=== PATIENT | female | born 1935 | race Caucasian/White ===

== ENCOUNTER 2017-06-30 15:24 | Emergency (ER) | payer OTHER ==
[~2017-06-30 15:24] MED LIST: ACYCLOVIR200 MG PO; ATIVAN1 MG PO; IBUPROFEN PO; KEFLEX500 MG PO; KENALOG-4040 MG/1 ML TOP; PANTOPRAZOLE SO40 MG PO; PROBIOTIC COMP1 EACH PO; SURFAK240 MG PO; TYLENOL WITH C1 EACH PO; VIT B12 PO; VIT D3 PO
[2017-07-01] MEDS ORDERED: QUESTRAN PACKET4 GM PO (15:56)
[2017-07-01] MEDS ORDERED: XANAX0.25 MG PEG (15:56)
[2017-07-01] MEDS ORDERED: ZOFRAN ODT4 MG SL (15:56)
[2017-07-01] MEDS ORDERED: ACIDOPHILUS1 EAC1 PO (15:57)
== END 2017-06-30 15:39 | disposition short-term general hospital (02) ==
LOC: ER 15:24
DX: R06.00 Dyspnea, unspecified (principal)

== ENCOUNTER 2017-06-30 21:04 | Observation (INO) | payer OTHER ==
[~2017-06-30] VITALS: Ht 160 cm; Wt 76.7 kg
[2017-06-30 22:00] VITALS: BP 124/59
[2017-06-30 22:54] VITALS: BP 124/59
[2017-07-01] MEDS ORDERED: LORAZEPAM 1 MG TAB PO SCH (00:15)
[2017-07-01] MEDS ORDERED: ACETAMINOPHEN/CODEINE 300MG - 30MG TAB PO SCH (00:15)
[2017-07-01] MEDS ORDERED: SODIUM CHLORIDE 0.45% 1,000 ML IV SCH (00:30)
[2017-07-01] MEDS ORDERED: ACETAMINOPHEN/CODEINE 300MG - 30MG TAB PO PRN (00:30)
[2017-07-01] MEDS ORDERED: ONDANSETRON HCL INJ 2 MG/ML VIAL IV PRN (00:30)
[2017-07-01 01:05] VITALS: BP 124/59
[2017-07-01 04:00] VITALS: BP 127/69
[2017-07-01 07:25] VITALS: BP 117/62
[2017-07-01] MEDS ORDERED: FAMOTIDINE 20 MG TAB PO SCH (07:30)
[2017-07-01 07:53] LABS: BASOPHILS % 0.6 % (0.0-1.0); EOSINOPHILS # (AUTO) 0.1 (0.0-0.4); EOSINOPHILS % 2.6 % (0.0-6.0); HEMOGLOBIN 12.7 g/dL (12.0-16.0); LYMPHOCYTES # (AUTO) 1.6 (1.0-3.2); LYMPHOCYTES % 29.2 % (18.0-39.1); MEAN CORPUSCULAR HEMOGLOBIN 31.1 pg (28-32); MEAN CORPUSCULAR HGB CONC 33.4 g/dL (31-35); MEAN CORPUSCULAR VOLUME 93.1 fL (81-99); MONOCYTES # (AUTO) 0.6 (0.2-0.8); MONOCYTES % 10.9 % (4.4-11.3); NEUTROPHILS % 56.5 % (38.7-80.0); PLATELET COUNT 242 x10e3/uL (140-360); RED BLOOD COUNT 4.08 x10e6/uL (3.6-5.1); RED CELL DISTRIBUTION WIDTH 12.1 % (11.7-14.4)
[2017-07-01 08:16] LABS: BLOOD UREA NITROGEN 12 mg/dL (7-26); BUN/CREATININE RATIO 16 (6-25); CALCIUM 8.8 mg/dL (8.4-10.2); CARBON DIOXIDE 26 mmol/L (22-29); CHLORIDE 108 mmol/L (98-107); CREATININE, SERUM 0.77 mg/dL (0.57-1.11); EST GLOMERULAR FILTRATION RATE > 60 ML/MIN (60-); GLUCOSE 98 mg/dL (74-118); MAGNESIUM 1.9 MG/DL (1.3-2.1); SODIUM 141 mmol/L (136-145)
[2017-07-01 08:39] LABS: THYROID STIMULATING HORMONE 3.024 uIU/mL (0.350-4.940)
[2017-07-01] MEDS ORDERED: VIT D3 PO SCH (09:00)
[2017-07-01] MEDS ORDERED: NON-FORMULARY MEDICATION ([Vit B12] 1 TAB) PO SCH (09:00)
[2017-07-01] MEDS ORDERED: DOCUSATE CALCIUM 240 MG PO SCH (09:00)
[2017-07-01] MEDS ORDERED: ACYCLOVIR 200 MG CAP PO SCH (09:00)
[2017-07-01] MEDS ORDERED: CEPHALEXIN 500 MG CAP PO SCH (09:00)
[2017-07-01] MEDS: TRIAMCINOLONE ACET 40 MG/ML VIAL TOP SCH ×2 (09:00→15:00)
[2017-07-01] MEDS ORDERED: DOCUSATE SODIUM 100 MG CAP PO SCH (09:00)
[2017-07-01 09:49] VITALS: BP 117/62
--- NOTE | 2017-07-01 11:18 | Diagnostic Imaging Report ---
Ventilation/perfusion lung scan Clinical Information: 81 F with acute onset SOB Comparison: None Discussion: Xenon-133 gas 18 mCi was administered via inhalation. Dynamic images of the lungs in the posterior projection were obtained through single breath, equilibrium, and washout phases. Distribution of tracer activity appears physiologic throughout the lungs.. There are no segmental ventilatory defects. Washout of tracer is mildly delayed with no evidence of air trapping. Perfusion images of the lungs were obtained in multiple projections following intravenous administration of approximately 6.6 mCi of Tc-99m MAA. Distribution of tracer appears physiologic throughout the lungs. The contours of the lungs are well demarcated. There are no segmental perfusion defects of any size. The cardiomediastinal silhouette is unremarkable. Impression: 1. Scan findings represent a VERY LOW probability for acute pulmonary embolic disease based on the PIOPED II criteria. Signed by: Dr. Belén Tavera M.D. on 07/01/2017 11:14 AM
[2017-07-01] MEDS ORDERED: CHOLESTYRAMINE 4 GM PACKET PO SCH (11:30)
[2017-07-01] MEDS ORDERED: ALPRAZOLAM 0.25 MG TAB PO PRN (11:30)
[2017-07-01] MEDS ORDERED: LACTOBACILLUS ACIDOPHILUS CAPSULE PO SCH (11:30)
[2017-07-01 11:58] VITALS: BP 119/59
--- NOTE | 2017-07-01 15:05 | History and Physical ---
PRIMARY CARE PROVIDER: Dr. Ike Juarez Patient in observation. CHIEF COMPLAINT: Shortness of breath with positive D-dimer. HISTORY: A 81-year-old female off and on with diarrhea and abdominal pain for the past month with multiple antibiotics first with oral vancomycin and Flagyl, and subsequent Cipro and Flagyl because she could not afford the vancomycin on the 2nd dose. Apparently, she was having diarrhea off and on. First with constipation. Calcium treatment for osteoporosis, and then subsequently with stool softeners, then diarrhea and then possible diverticulitis where she had a CT scan of the abdomen and pelvis with and without contrast at [facility] outpatient imaging tests. That test I did not have. The patient is having diarrhea. She is having some generalized discomfort. She went to an outpatient urgent care and found that she had a high D-dimer, but because she just had a CT scan of abdomen and pelvis with IV contrast, the patient is transferred to [facility] on observation for V/Q scan for which she just now received. The patient is otherwise stable. Stool sample sent for C. diff toxin. PAST MEDICAL HISTORY: Recurrent constipation and diarrhea, history diverticulosis with diverticulitis, hypertension, anxiety disorder. PAST SURGICAL HISTORY: Noncontributory. SOCIAL HISTORY: Patient does not smoke or use alcohol. No regular drugs. ALLERGIES: NO KNOWN ALLERGIES. HOME MEDICATIONS: List reviewed. REVIEW OF SYSTEMS: Abdominal discomfort. No shortness breath now. Diarrhea. PHYSICAL EXAMINATION VITAL SIGNS: Temperature is 98, blood pressure 117/62, pulse rate 68, respirations 18. GENERAL: The patient is not in acute distress. He is awake. HEENT: Normocephalic, atraumatic and anicteric. NECK: Supple grossly. PULMONARY: Clear. CARDIOVASCULAR: Regular rate and rhythm. ABDOMEN: Soft. Generalized discomfort. No rebound or guarding. EXTREMITIES: No cyanosis or edema. NEUROLOGIC: No focal deficit. LABORATORY: Otherwise unremarkable. WBC is 5.3, hemoglobin 12.7, hematocrit 38, and platelets 242,000. Sodium is 141, potassium 4, chloride 108, bicarb 26, BUN 12, creatinine 0.8, glucose 98. IMPRESSION 1. Abdominal discomfort with diarrhea: Most likely colitis. Will check for Clostridium difficile colitis. 2. Shortness of breath: Most likely anxiety panic disorder. Doubt pulmonary embolism, but the V/Q scan is done and pending result. PLAN: Check V/Q scan. Start the patient on oral Flagyl and Questran. Bacid. Will monitor the patient closely. The patient may or may not be going home pending on the V/Q scan result. Job#: [id number] JUAN JOSE
[2017-07-01] MEDS ORDERED: QUESTRAN PACKET4 GM PO (15:56)
[2017-07-01] MEDS ORDERED: XANAX0.25 MG PEG (15:56)
[2017-07-01] MEDS ORDERED: ZOFRAN ODT4 MG SL (15:56)
[2017-07-01] MEDS ORDERED: ACIDOPHILUS1 EAC1 PO (15:57)
[2017-07-01 16:29] VITALS: BP 132/65
== END 2017-07-01 16:19 | disposition home or self-care (01) ==
LOC: INTOOBSV 21:49 → MED/SURG 21:49
PROVIDERS: ADMIT Internal Medicine; ATTEND Internal Medicine
DX: R06.02 Shortness of breath (principal); R19.7 Diarrhea, unspecified
CPT/HCPCS: 36415; 78582; 80048; 83735; 84443; 85025; 87493; A9540; A9558; G0378 ×2; J3301

== ENCOUNTER 2018-10-14 19:42 | Observation (INO) | payer OTHER ==
[~2018-10-14] VITALS: Ht 162.6 cm; Wt 79.8 kg
[~2018-10-14 19:42] MED LIST changes: +ACIDOPHILUS1 EAC1 PO; +QUESTRAN PACKET4 GM PO; +XANAX0.25 MG PEG; +ZOFRAN ODT4 MG SL
--- OUTSIDE RECORDS SUMMARY | 2018-10-14 19:46 | XMS REPORT ---
Author Author [facility] Address Unknown Phone Unavailable Care Team Providers Care Suit Maker Name Role Phone BILLY MUELLER Unavailable Unavailable Problems This patient has no known problems. Allergies, Adverse Reactions, Alerts This patient has no known allergies or adverse reactions. Medications This patient has no known medications. Results Test Description Test Time Test Comments Text Results Atomic Results Result Comments VQ LUNG SCAN VENT PERFUSION [place] [id number] Patient Name: YANIRA COKER MR #: [id number] : 1935 Age/Sex: 81/F Req #: [id number] [facility] Physician: BILLY MUELLER MD Ordered by: BILLY MUELLER MD Report #: [id number] Location: MED/SURG Room/Bed: [facility] Procedure: [id number] NM/VQ LUNG SCAN VENT PERFUSION Exam Date: Exam Time: REPORT STATUS: Signed Ventilation/perfusion lung scan Clinical Information: 81 F with acute onset SOB Comparison: None Discussion: Xenon-133 gas 18 mCi was administered via inhalation. Dynamic images of the lungs in the posterior projection were obtained through single breath, equilibrium, and washout phases. Distribution of tracer activity appears physiologic throughout the lungs.. There are no segmental ventilatory defects. Washout of tracer is mildly delayed with no evidence of air trapping. Perfusion images of the lungs were obtained in multiple projections following intravenous administration of approximately 6.6 mCi of Tc-99m MAA. Distribution of tracer appears physiologic throughout the lungs. The contours of the lungs are well demarcated. There are no segmental perfusion defects of any size. The cardiomediastinal silhouette is unremarkable. Impression: 1. Scan findings represent a VERY LOW probability for acute pulmonary embolic disease based on the PIOPED II criteria. Signed by: Dr. Kristie Blair M.D. on 07/01/2017 11:14 AM Dictated By: KRISTIE BLAIR MD [id number] Transcribed By: MIRIAM on 07/01/17 111 COPY TO: BILLY MUELLER MD
[2018-10-14] MEDS ORDERED: ASPIRIN 81 MG CHEW TAB PO ONE (20:15)
[2018-10-14] MEDS ORDERED: NITROGLYCERIN 2% OINT 1 GM PKT TOP ONE (20:15)
--- NOTE | 2018-10-14 21:53 | Diagnostic Imaging Report ---
EXAMINATION: CXR 1 [facility] INDICATION: Left chest pain and arm swollen x 4 h ago. COMPARISON: None FINDINGS: TUBES and LINES: None. LUNGS: Lungs are well inflated. Lungs are clear. There is no evidence of pneumonia or pulmonary edema. PLEURA: No pleural effusion or pneumothorax. HEART AND MEDIASTINUM: The cardiomediastinal silhouette is unremarkable. BONES AND SOFT TISSUES: No acute osseous lesion. Severe degenerative changes of the right shoulder with multiple large shadowing bodies. Likely moderate degenerative changes in the left shoulder. Soft tissues are unremarkable. UPPER ABDOMEN: No free air under the diaphragm. There are cholecystectomy clips. IMPRESSION: 1. No acute thoracic abnormality. 2. Severe degenerative changes in the right shoulder with multiple large loose joint bodies. 3. Likely moderate degenerative changes in the left shoulder. Signed by: Dr. Matthew Palomino M.D. on 10/14/2018 9:50 PM
[2018-10-14] MEDS ORDERED: ONDANSETRON HCL INJ 2MG/ML 2ML 2 MG/ML VIAL IV PRN (22:45)
[2018-10-15] VITALS (7 sets, daily range): BP systolic 123–151; BP diastolic 58–72
--- NOTE | 2018-10-15 00:52 | NUR ---
Patient is a new admit that arrived via stretcher. patient is awake and talking. patient has been helped into the bed. bed is in the lowest position and call rodas is within reach.
--- NOTE | 2018-10-15 01:00 | NUR ---
patient states current IV location in right AC is bothersome and painful and requests IV location be changed. A new IV has been started in patients right wrist. patient tolerated procedure well. IV is patent and blood is flowing.
[2018-10-15 02:50] LABS: CREATINE KINASE MB 2.6 ng/mL (0-5.0)
[2018-10-15] MEDS: NITROGLYCERIN 2% OINT 1 GM PKT TOP SCH ×2 (06:06)
--- NOTE | 2018-10-15 06:58 | NUR ---
report given to day nurse. patient is resting comfortably in bed. bed is in lowest position and call light is within reach.
[2018-10-15] MEDS ORDERED: ALPRAZOLAM 0.25 MG TAB PEG PRN (09:00)
[2018-10-15] MEDS ORDERED: ONDANSETRON HCL 4 MG ORAL DISINTEGRATING TAB SL PRN (09:00)
[2018-10-15] MEDS ORDERED: ASPIRIN 81 MG ENTERIC COATED PO SCH (09:00)
[2018-10-15 09:31] LABS: BASOPHILS % 0.5 % (0.0-1.0); EOSINOPHILS # (AUTO) 0.1 (0.0-0.4); EOSINOPHILS % 2.3 % (0.0-6.0); HEMATOCRIT 38.4 % (34.2-44.1); HEMOGLOBIN 12.6 g/dL (12.0-16.0); LYMPHOCYTES # (AUTO) 2.2 (1.0-3.2); LYMPHOCYTES % 37.8 % (18.0-39.1); MEAN CORPUSCULAR HEMOGLOBIN 31.1 pg (28-32); MEAN CORPUSCULAR HGB CONC 32.8 g/dL (31-35); MEAN CORPUSCULAR VOLUME 94.8 fL (81-99); MONOCYTES # (AUTO) 0.6 (0.2-0.8); MONOCYTES % 11.1 % (4.4-11.3); NEUTROPHILS # (AUTO) 2.8 (2.1-6.9); PLATELET COUNT 202 x10e3/uL (140-360); RED BLOOD COUNT 4.05 x10e6/uL (3.6-5.1); RED CELL DISTRIBUTION WIDTH 12.4 % (11.7-14.4)
[2018-10-15 10:05] LABS: CREATINE KINASE MB 2.1 ng/mL (0-5.0)
[2018-10-15 10:07] LABS: ALANINE AMINOTRANSFERASE 18 IU/L (0-55); ALBUMIN 3.3 g/dL (3.5-5.0); ALKALINE PHOSPHATASE 61 IU/L (40-150); ANION GAP 10.4 mmol/L (8-16); BLOOD UREA NITROGEN 17 mg/dL (7-26); BUN/CREATININE RATIO 22 (6-25); CALCIUM 9.3 mg/dL (8.4-10.2); CARBON DIOXIDE 29 mmol/L (22-29); CHLORIDE 103 mmol/L (98-107); CHOL/HDL RATIO 3.7 (3.0-3.6); CHOLESTEROL 161 MD/DL (0-199); CREATININE, SERUM 0.78 mg/dL (0.57-1.11); EST GLOMERULAR FILTRATION RATE > 60 ML/MIN (60-); GLUCOSE 164 mg/dL (74-118); HDL CHOLESTEROL 43 MG/DL (40-60); LDL CHOLESTEROL 73 MG/DL (60-130); POTASSIUM 4.4 mmol/L (3.5-5.1); SODIUM 138 mmol/L (136-145); TRIGLYCERIDES 224 MG/DL (0-149)
--- NOTE | 2018-10-15 14:28 | Consultation ---
DATE OF CONSULTATION: 10/14/2018 REASON FOR CONSULTATION: Chest pain. CONSULTING PHYSICIAN: Dr. Meliton Fox. HISTORY OF PRESENT ILLNESS: This is a pleasant 83-year-old female, who presented with chest pain. According to the patient, yesterday, she started having a left-sided chest pain that felt like a tight pressure on a scale of 8/10. She stated pain started while she was at a [employer]ian[employer], it radiated to her left shoulder blade and left arm thus she came into the emergency room for evaluation. She also stated that she feels shortness of breath with deep breathing. She denied any palpitation, any diaphoresis, any headache, nausea, or vomiting. She was at a free-standing ER and later sent over here for further evaluation. Troponin x1 is negative. EKG showed normal sinus rhythm with no ST abnormalities. PAST MEDICAL HISTORY: GERD, squamous cell carcinoma, anxiety, and diverticulitis. PAST SURGICAL HISTORY: Hemorrhoidectomy, cholecystectomy, appendectomy, and hysterectomy. FAMILY HISTORY: Positive for CAD. SOCIAL HISTORY: No smoking. No drinking. She lives at home with her . MEDICATIONS: See med list. ALLERGIES: SHE IS NOT ALLERGIC TO ANY MEDICATION. REVIEW OF SYSTEMS: Negative except those mentioned above. PHYSICAL EXAMINATION: VITAL SIGNS: Temperature 97, heart rate 76, blood pressure 126/61, respirations 18, and oxygen saturation 95% on room air. GENERAL: She is awake, alert, and oriented x3. HEENT: Mucous membranes moist. NECK: Supple. LUNGS: Bilaterally clear to auscultation. CARDIOVASCULAR: S1 and S2 present. ABDOMEN: Soft. NEUROLOGIC: Intact. EXTREMITIES: No edema. LABS: White blood cells 6.7, hemoglobin 12.7, hematocrit 37.8, and platelets 217. IMPRESSION: 1. Chest pain. 2. Gastroesophageal reflux disease. 3. History of anxiety. PLAN: 1. We will go ahead and get serial cardiac enzymes. 2. Get an echocardiogram, CBC, BNP, TSH, and BNP. We will continue her home medications. Further cardiac workup pending clinical course. Thank you for this consultation. Dictated by Franci Maldonado NP MD TYRONE De La Fuente/SRI /[id number]
--- NOTE | 2018-10-15 18:15 | NUR ---
patient alert and oriented. discharge instructions given at this time, patient verbalized understanding. IV discontinued at this time, catheter in tact and bed in lowest position. Patient refused wheelchair assistance and will be escorted out to personal auto for daughter to drive home.
== END 2018-10-15 18:22 | disposition home or self-care (01) ==
LOC: FSED 19:42 → ERHOLD 22:49 → IMCU 10-15 00:49
PROVIDERS: ADMIT Internal Medicine; ATTEND Internal Medicine
DX: R07.9 Chest pain, unspecified (principal); K21.9 Gastro-esophageal reflux disease without esophagitis; F41.9 Anxiety disorder, unspecified; Z82.49 Family history of ischemic heart disease and other diseases of the circulatory system; Z85.9 Personal history of malignant neoplasm, unspecified
CPT/HCPCS: 36415; 71045; 80053 ×2; 80061; 81003; 82550; 82553; 83880 ×2; 84443; 84484 ×2; 85025 ×2; 85610; 93005; 93306; 99284; G0378 ×2

== ENCOUNTER 2019-10-31 21:59 | Observation (INO) | payer OTHER ==
[~2019-10-31] VITALS: Ht 162.6 cm; Wt 77.1 kg
[2019-10-31] MEDS ORDERED: SODIUM CHLORIDE 0.9% 1000ML 1,000 ML IV STA (22:01)
[2019-10-31] MEDS ORDERED: ONDANSETRON HCL INJ 2MG/ML 2ML 2 MG/ML VIAL IV STA (22:01)
[2019-10-31] MEDS ORDERED: ASPIRIN 81 MG CHEW TAB PO ONE (22:15)
[2019-10-31 23:03] LABS: BASOPHILS % 0.6 % (0.0-1.0); EOSINOPHILS # (AUTO) 0.1 (0.0-0.4); EOSINOPHILS % 1.6 % (0.0-6.0); HEMATOCRIT 42.1 % (34.2-44.1); LYMPHOCYTES # (AUTO) 2.3 (1.0-3.2); LYMPHOCYTES % 32.9 % (18.0-39.1); MEAN CORPUSCULAR HEMOGLOBIN 30.2 pg (28-32); MEAN CORPUSCULAR HGB CONC 33.3 g/dL (31-35); MEAN CORPUSCULAR VOLUME 90.7 fL (81-99); MONOCYTES # (AUTO) 0.9 (0.2-0.8); MONOCYTES % 12.4 % (4.4-11.3); NEUTROPHILS # (AUTO) 3.6 (2.1-6.9); NEUTROPHILS % 51.9 % (38.7-80.0); PLATELET COUNT 234 x10e3/uL (140-360); RED BLOOD COUNT 4.64 x10e6/uL (3.6-5.1); RED CELL DISTRIBUTION WIDTH 12.6 % (11.7-14.4)
[2019-10-31 23:23] LABS: CLARITY,URINE CLOUDY (CLEAR); COLOR,URINE YELLOW (YELLOW); LEUKOCYTE ESTERASE ,URINE 1+ (NEGATIVE)
[2019-10-31 23:24] LABS: ALANINE AMINOTRANSFERASE 19 IU/L (0-55); ALBUMIN 3.8 g/dL (3.5-5.0); ALKALINE PHOSPHATASE 58 IU/L (40-150); BILIRUBIN,URINE NEGATIVE (NEGATIVE); BLOOD UREA NITROGEN 14 mg/dL (7-26); BUN/CREATININE RATIO 15 (6-25); CALCIUM 9.8 mg/dL (8.4-10.2); CARBON DIOXIDE 27 mmol/L (22-29); CHLORIDE 102 mmol/L (98-107); CREATINE KINASE 91 IU/L (29-168); CREATININE, SERUM 0.93 mg/dL (0.57-1.11); EST GLOMERULAR FILTRATION RATE 58 ML/MIN (60-); GLUCOSE 96 mg/dL (74-118); KETONES,URINE NEGATIVE (NEGATIVE); LIPASE 17 U/L (8-78); NITRITE,URINE NEGATIVE (NEGATIVE); PROTEIN,URINE DIPSTICK NEGATIVE (NEGATIVE); SODIUM 139 mmol/L (136-145); URINE UROBILINOGEN 0.2 mg/dL (0.2 - 1)
[2019-10-31 23:34] LABS: BACTERIA,URINE FEW /HPF; EPITHELIAL CELLS,URINE FEW /LPF; RENAL EPITHELIAL CELLS,URINE MODERATE; TRANSITIONAL EPI CELLS,URINE MANY; WBC,URINE (MAN) >50 /HPF (0-5)
[2019-11-01] VITALS (9 sets, daily range): BP systolic 118–129; BP diastolic 52–65
--- NOTE | 2019-11-01 00:10 | NUR ---
PT REPORTS "NOT ABLE TO TAKE A DEEP BREATH" SINCE RETURNING FROM CT W/ CONTRAST. PT STATES SHE HAS CT'S BEFORE WITH CONTRAST WITH NO REACTION. DR. MUELLER NOTIFIED AND AWARE. DR. MUELLER AT BEDSIDE FOR EVALUATION.
--- NOTE | 2019-11-01 00:15 | Diagnostic Imaging Report ---
EXAM: CT Abdomen and Pelvis WITH contrast INDICATION: ^abd pain ^[id number] ^2347 COMPARISON: CT abdomen 04/09/2016 TECHNIQUE: Abdomen and pelvis were scanned utilizing a multidetector helical scanner from the lung base to the pubic symphysis after administration of IV contrast. Coronal and sagittal reformations were obtained. Routine protocol was performed. Scan was performed when during portal venous phase. IV CONTRAST: 100 mL of Isovue 370 ORAL CONTRAST: Water COMPLICATIONS: None RADIATION DOSE: Total DLP: 644 mGy*cm Estimated effective dose: (DLP x 0.015 x size factor) mSv CTDIvol has been reviewed. It is below the limits set by the Radiation Protocol Committee (RPC). Dose modulation, iterative reconstruction, and/or weight based adjustment of the mA/kV was utilized to reduce the radiation dose to as low as reasonably achievable. FINDINGS: LINES and TUBES: None. LOWER THORAX: Small hiatal hernia. HEPATOBILIARY: Subtle nonspecific nodularity of the posterior aspect of the right hepatic lobe. No focal hepatic lesions. No biliary ductal dilation. GALLBLADDER: Surgically absent. SPLEEN: No splenomegaly. PANCREAS: No focal masses or ductal dilatation. ADRENALS: No adrenal nodules KIDNEYS/URETERS: Kidneys enhance symmetrically. No hydronephrosis. No cystic or solid mass lesions. No stones. GI TRACT: No abnormal distention, wall thickening, or evidence of bowel obstruction. Small and large bowel diverticulosis. Tiny ileal lipoma (image 42). Appendix is normal. PELVIC ORGANS/BLADDER: Unremarkable. LYMPH NODES: Prominent nonspecific left inguinal lymph nodes that measure up to 1.2 cm in short axis, possibly reactive. VESSELS: Scattered atherosclerotic calcifications. PERITONEUM / RETROPERITONEUM: No free air or fluid. BONES: No acute osseous abnormality. SOFT TISSUES: Tiny umbilical hernia. IMPRESSION: 1. No acute abdominal or pelvic abnormality. 2. Extensive diverticulosis of the small and large bowel. No inflammation. Signed by: Kilo De Paz MD on 11/01/2019 12:12 AM
--- NOTE | 2019-11-01 00:16 | Diagnostic Imaging Report ---
EXAMINATION: CHEST 2 VIEWS INDICATION: ^angina ^[id number] ^[id number] COMPARISON: None FINDINGS: PA and lateral views TUBES and LINES: None. LUNGS: Lungs are well inflated. Lungs are clear. There is no evidence of pneumonia or pulmonary edema. PLEURA: No pleural effusion or pneumothorax. HEART AND MEDIASTINUM: The cardiomediastinal silhouette is unremarkable. BONES AND SOFT TISSUES: No acute osseous lesion. Right shoulder joint loose bodies again noted. UPPER ABDOMEN: No free air under the diaphragm. IMPRESSION: No acute thoracic radiographic abnormality. Signed by: Kilo De Paz MD on 11/01/2019 12:13 AM
--- NOTE | 2019-11-01 00:18 | NUR ---
REPEAT EKG OBTAINED AT THIS TIME. EKG GIVEN TO ER FOR EVALUATION.
[2019-11-01] MEDS ORDERED: ENOXAPARIN INJ 80 MG/0.8 ML SYR SC STA (00:32)
[2019-11-01] MEDS ORDERED: ASPIRIN 325 MG TAB PO ONE (00:45)
[2019-11-01] MEDS ORDERED: SODIUM CHLORIDE 0.9% 50ML 50 ML ONE (00:47)
[2019-11-01] MEDS ORDERED: IOPAMIDOL 370 MG/ML 200 ML INFUS..BTL INJ ONE (00:47)
[2019-11-01] MEDS: SODIUM CHLORIDE 0.9% 1000ML 1,000 ML IV SCH ×3 (01:50→16:45)
--- NOTE | 2019-11-01 03:00 | NUR ---
PATIENT WAS BROUGHT FROM ER IN A STRETCHER WITH C/O LLQ PAIN.ASSESSMENT DONE.NO RESP.DISTRESS.TELE #[address],IV TO LEFT FOR ARM PATENT.AAOX4.SELF AMBULATES.ORIENTED TO THE UNIT.BED LOCKED AND IN LOWEST POSITION.PHONE AND CALL LIGHT WITHIN REACH.INSTRUCTED TO CALL FOR ASSISTANCE NEEDED.
--- NOTE | 2019-11-01 04:38 | NUR ---
PT REFUSED MORPHINE 4MG IV.STABLE CONDITION.
[2019-11-01] MEDS ORDERED: FLAGYL250 MG PO (04:41)
[2019-11-01 05:38] LABS: CREATINE KINASE 83 IU/L (29-168)
--- NOTE | 2019-11-01 07:00 | NUR ---
RECEIVED BEDSIDE SHIFT REPORT FROM VERNON BRUNNER. PT DENIES NEEDS AT THIS TIME.
--- NOTE | 2019-11-01 07:10 | NUR ---
CONSULTS CALLED.BED SIDE SHIFT REPORT GIVEN TO ONCOMING RN.STABLE CONDITION.
[2019-11-01] MEDS: ONDANSETRON HCL INJ 2MG/ML 2ML 2 MG/ML VIAL IV PRN ×2 (09:36→14:49)
[2019-11-01] MEDS: MORPHINE SULFATE INJ 4 MG/ML INJ 1ML IV PRN ×2 (09:36→14:49)
[2019-11-01 14:15] LABS: CREATINE KINASE 80 IU/L (29-168)
[2019-11-01] MEDS ORDERED: ACETAMINOPHEN/CODEINE 300MG - 30MG TAB PO PRN (14:30)
[2019-11-01] MEDS ORDERED: ALPRAZOLAM 0.25 MG TAB PO PRN (14:30)
[2019-11-01] MEDS ORDERED: ACYCLOVIR 200 MG CAP PO PRN (14:30)
[2019-11-01] MEDS ORDERED: CHOLESTYRAMINE 4 GM PACKET PO PRN (14:30)
[2019-11-01] MEDS ORDERED: ACETAMINOPHEN 325 MG TAB PO PRN (14:45)
[2019-11-01] MEDS ORDERED: HYDRALAZINE HCL 20 MG/ML VIAL IV PRN (14:45)
[2019-11-01] MEDS ORDERED: METRONIDAZOLE 250 MG TAB PO SCH (17:00)
[2019-11-01] MEDS ORDERED: CIPROFLOXACIN 500 MG TAB PO SCH (17:00)
[2019-11-01] MEDS: CIPROFLOXACIN 400 MG/D5W 200ML 200 ML IV SCH (17:26)
--- NOTE | 2019-11-01 19:10 | NUR ---
RECEIVED THE PATIENT IN REPORT.LYEING IN THE BED.STABLE CONDITION.IV FLUID RUNNING.
[2019-11-01] MEDS: ONDANSETRON HCL 4 MG ORAL DISINTEGRATING TAB SL PRN (20:29)
--- NOTE | 2019-11-01 20:33 | NUR ---
Assessment done.no resp.distress.no pain voiced.nauseated.zofran 4mg sub lingual given.bed locked and in lowest position.phone and call light within reach.instructed to call for assistance as needed.
--- NOTE | 2019-11-01 21:16 | History and Physical ---
CHIEF COMPLAINT: Abdominal pain. PRIMARY CARE PHYSICIAN: Casey Thao DO. CONSULTANTS: Dr. Don Vogel with Gastroenterology and Dr. Collin Winston. HISTORY OF PRESENT ILLNESS: The patient is an 84-year-old female with about a 3-4 week duration of abdominal soreness with knife-like pains at the left abdomen, which radiates to her back. For 2 weeks, she has fasted on evening meals only. This past week, she went off the fast, but ate no food last night. Her first diverticulosis attack was about 1982 and she was told to eat more fiber at that time. She went to her PCP for this attack and was prescribed Cipro and Flagyl. She denies any sick contacts. States she and her have quarantined themselves basically to avoid contact with others. She denies any recent camping. PAST MEDICAL HISTORY: Recurrent constipation and diarrhea, diverticulosis with diverticulitis, anxiety disorder, gastroesophageal reflux disease, squamous cell carcinoma, hypertension is also listed in previous notes' history, however, the patient denies history of hypertension and states she does not take anything for her blood pressure at home. PAST SURGICAL HISTORY: 11/24/2016 transanal resection of anorectal tumor, hemorrhoidectomy, cholecystectomy, appendectomy, hysterectomy. FAMILY HISTORY: Father had coronary artery disease and from myocardial infarction. Mother had squamous cell carcinoma. SOCIAL HISTORY: The patient smoked from about age [age]. She smoked about 17 years of 1 pack per day and quit 17 pack-years. Alcohol, some distant use, none recent. Denies any illicit drugs. ALLERGIES: NO KNOWN ALLERGIES. HOME MEDICATIONS: Include Tylenol No. 3, acyclovir, Xanax, cholestyramine, Lactobacillus acidophilus, Flagyl 250 mg p.o. b.i.d., p.r.n. sublingual Zofran, Kenalog 40, vitamin B12, vitamin D3. REVIEW OF SYSTEMS: CONSTITUTIONAL: The patient denies any significant weight loss or weight gain. Denies chills or fever. EYES, EARS, NOSE, THROAT: No complaints. RESPIRATORY: Denies shortness of breath, cough, or phlegm. GENITOURINARY: Denies difficulty urinating. PSYCHIATRIC: Possible panic attack last night. INTEGUMENTARY: Denies lesions or rash. CARDIOVASCULAR: Denies chest pain or palpitations. GASTROINTESTINAL: Abdominal pain, currently 5/10 on a 0-10 pain scale. Nausea 3 days ago, vomited once 3 days ago and once 2 days ago, but no vomiting since. Her last bowel movement was yesterday on 10/30. MUSCULOSKELETAL: Denies muscle or joint pain. NEUROLOGIC: Denies headache or dizziness. ENDOCRINE: Denies having history of diabetes. HEMATOLOGIC: Denies any bleeding anywhere. PHYSICAL EXAMINATION: VITAL SIGNS: Temperature 97.7, T-max 99.1, heart rate 61, blood pressure 123/55, respirations 20, oxygen saturation 96%. Height 5 feet 4 inches, weight 170 pounds. BMI 29.17. GENERAL: The patient lying supine in bed. Mild discomfort. LUNGS: Clear to auscultation. Respiratory pattern even and nonlabored. HEENT: EOMI. NECK: Supple. CARDIOVASCULAR: S1, S2. No murmurs. Regular rate and rhythm. Normal saline infusing at 100 mL an hour through a peripheral IV. ABDOMEN: Bowel sounds positive. Soft. Mildly tender to gentle palpation. EXTREMITIES: No clubbing, cyanosis, edema, or signs or symptoms of DVT. NEUROLOGICAL: GCS 15. Nonfocal. LABORATORY DATA: Sodium 139, potassium 4, chloride 102, CO2 of 27, BUN 14, creatinine 0.93, estimated GFR 58, glucose 96, calcium 9.8, total bilirubin 0.4, AST 24, ALT 19, alkaline phosphatase 58, creatine kinase 91, CK-MB 2.9, and troponin I less than 0.001, this was at 2248 yesterday. This morning at 4:50 in the morning; creatine kinase 83, CK-MB 2.5, troponin I less than 0.001. At 1335 today; creatine kinase 80, CK-MB 2.2, troponin I less than 0.001. B-type natriuretic peptide less than 10, total protein 7.6, albumin 3.8. Urinalysis showed cloudy urine, leukocyte esterase 1+, RBC 6-10, WBC greater than 50. UR transition epithelial cells many, UR renal epithelial cells moderate, few urine bacteria. Urine culture was ordered. CT of the abdomen and pelvis on 10/30 showed no acute abdominal or pelvic abnormality. Extensive diverticulosis of the small and large bowel. No inflammation. No mention of diverticulitis. Chest x-ray on 10/30 shows no acute thoracic radiographic abnormality. She had an echocardiogram done today, which shows an ejection fraction of 65% to 70% with her impaired relaxation. A 12-lead ECG yesterday had shown normal sinus rhythm with a heart rate of 67. Telemetry today shows normal sinus rhythm with a heart rate of 68. ASSESSMENT AND PLAN: 1. Diverticulosis without diverticulitis. The patient was on Cipro and Flagyl at home. Case was discussed with Dr. Van and Dr. Vogel. I will go ahead and restart those oral antibiotics for now. She is afebrile, has no elevated white blood cell count, denies chills. Pain control with morphine, Protonix. 2. Possible urinary tract infection. Follow up on final urine culture and sensitivity results. Continue IV fluids. 3. Nausea and vomiting, resolved. 4. Anxiety disorder. She may resume home dose of Xanax. 5. Gastroesophageal reflux disease/prophylaxis, Protonix. Time spent 60 minutes. [id number]. Dictated by Pieter Urbina NP Kennedy Van MD H[facility]/MODL /[id number]
[2019-11-01] MEDS: METRONIDAZOLE 500MG/NS 100ML 100 ML IV SCH (22:08)
--- NOTE | 2019-11-01 23:56 | Consultation ---
DATE OF CONSULTATION: 11/01/2019 Cardiology Consultation CONSULTING PHYSICIAN: Collin Winston MD, Interventional Cardiology. REASON FOR CONSULTATION: Shortness of breath/PVCs. HISTORY OF PRESENT ILLNESS: An 84-year-old pleasant woman with history of hypertension, dyslipidemia, diverticulosis, presents with abdominal discomfort. She is also noted to have some episodes of dyspnea at rest for which serial cardiac biomarkers were performed and ruled out for AMI. Her BNP was less than 10. She was reportedly noted to have some PVCs on telemetry. She denies any chest discomfort, syncope or lightheadedness. REVIEW OF SYSTEMS: A 12-system review is negative except for as noted above. ALLERGIES: NO KNOWN DRUG ALLERGIES. PAST MEDICAL HISTORY: Hypertension, dyslipidemia, and history of diverticulosis. SOCIAL HISTORY: Denies smoking, alcohol, or drugs. FAMILY HISTORY: Noncontributory. PHYSICAL EXAMINATION: VITAL SIGNS: Temperature 98.1, heart rate 60, respiratory rate 18, blood pressure 129/65, O2 saturation 97% on room air. GENERAL: In no acute distress. Alert. NECK: No JVD. CHEST: Clear to auscultation. CARDIOVASCULAR: Regular rate and rhythm. Normal S1, S2. No S3 or S4. ABDOMEN: Soft with mild tenderness. EXTREMITIES: No edema. CARDIOVASCULAR MEDICATIONS: Reviewed. Hydralazine 10 mg q.4 hours p.r.n., metronidazole antibiotics. STUDIES: Reviewed. Sodium 139, potassium 4, creatinine 0.9. Troponin I negative x3. BNP less than 10. Lipase 17, albumin 3.8. Abdomen and pelvis CT, no acute abdominal pelvic abnormality, extensive diverticulosis of the small and large bowel. No inflammation reported. Chest x-ray, no acute thoracic radiographic abnormality. ASSESSMENT: 1. Premature ventricular contractions. 2. Dyspnea. 3. Hypertension. 4. Dyslipidemia. 5. Abdominal discomfort, undergoing evaluation. 6. Diverticulosis. RECOMMENDATIONS: 1. Obtain echocardiogram. 2. Start low-dose beta-radha. 3. GI evaluating the patient. No acute or no unstable cardiac conditions identified. Beta-radha added to current regimen. Further recommendations to follow. Collin Winston MD [facility]/MODL /[id number]
[2019-11-02] VITALS (8 sets, daily range): BP systolic 112–189; BP diastolic 56–76
[2019-11-02] MEDS: SODIUM CHLORIDE 0.9% 1000ML 1,000 ML IV SCH ×3 (02:06→17:41)
[2019-11-02] MEDS: CIPROFLOXACIN 400 MG/D5W 200ML 200 ML IV SCH ×2 (05:03→17:53)
[2019-11-02] MEDS: ONDANSETRON HCL 4 MG ORAL DISINTEGRATING TAB SL PRN (05:35)
[2019-11-02] MEDS: METRONIDAZOLE 500MG/NS 100ML 100 ML IV SCH ×3 (06:06→22:00)
[2019-11-02 06:08] LABS: BASOPHILS % 0.6 % (0.0-1.0); EOSINOPHILS # (AUTO) 0.2 (0.0-0.4); HEMATOCRIT 35.9 % (34.2-44.1); HEMOGLOBIN 11.7 g/dL (12.0-16.0); LYMPHOCYTES # (AUTO) 1.9 (1.0-3.2); MEAN CORPUSCULAR HEMOGLOBIN 30.2 pg (28-32); MEAN CORPUSCULAR HGB CONC 32.6 g/dL (31-35); MEAN CORPUSCULAR VOLUME 92.8 fL (81-99); MONOCYTES # (AUTO) 0.6 (0.2-0.8); MONOCYTES % 13.3 % (4.4-11.3); NEUTROPHILS % 42.7 % (38.7-80.0); PLATELET COUNT 194 x10e3/uL (140-360); RED BLOOD COUNT 3.87 x10e6/uL (3.6-5.1); RED CELL DISTRIBUTION WIDTH 12.7 % (11.7-14.4)
[2019-11-02 06:25] LABS: MAGNESIUM 1.9 MG/DL (1.3-2.1); PHOSPHORUS 3.4 MG/DL (2.3-4.7)
[2019-11-02 06:30] LABS: ALANINE AMINOTRANSFERASE 19 IU/L (0-55); ALBUMIN 2.9 g/dL (3.5-5.0); ALBUMIN/GLOBULIN RATIO 0.9 (0.8-2.0); ALKALINE PHOSPHATASE 52 IU/L (40-150); ANION GAP 8.1 mmol/L (8-16); BLOOD UREA NITROGEN 10 mg/dL (7-26); BUN/CREATININE RATIO 13 (6-25); CALCIUM 8.5 mg/dL (8.4-10.2); CARBON DIOXIDE 26 mmol/L (22-29); CHLORIDE 107 mmol/L (98-107); CREATININE, SERUM 0.78 mg/dL (0.57-1.11); EST GLOMERULAR FILTRATION RATE > 60 ML/MIN (60-); GLUCOSE 127 mg/dL (74-118); POTASSIUM 4.1 mmol/L (3.5-5.1); SODIUM 137 mmol/L (136-145)
[2019-11-02 06:46] LABS: THYROID STIMULATING HORMONE 3.838 uIU/mL (0.350-4.940)
--- NOTE | 2019-11-02 07:00 | NUR ---
BED SIDE SHIFT REPORT GIVEN TO ONCOMING RN.STABLE CONDITION.
[2019-11-02] MEDS: PANTOPRAZOLE SOD 40 MG TABEC PO SCH (09:16)
[2019-11-02] MEDS: LACTOBACILLUS ACIDOPHILUS CAPSULE PO SCH (09:16)
[2019-11-02] MEDS: CHOLECALCIFEROL 1,000 UNIT TAB PO SCH (09:17)
[2019-11-02] MEDS: METOPROLOL SUCCINATE 25 MG TAB XL PO SCH (09:17)
[2019-11-02] MEDS: CYANOCOBALAMIN 1,000 MCG TAB PO SCH (09:17)
[2019-11-02] MEDS: AMLODIPINE BESYLATE 5 MG TAB PO SCH (17:15)
--- NOTE | 2019-11-02 19:45 | NUR ---
RECEIVED THE PATIENT IN BED AOX3 RESPIRATIONS ARE EVEN AND UNLABORED LEFT FA 20 G NS AT 125 CC/HR TELE SHOWS SR DENIES PAIN CALL LIGHT WITH IN REACH .CONTINUE TO MONITOR
[2019-11-02] MEDS ORDERED: CALCIUM CARBONATE 500 MG CHEWABLE TABS PO STA (20:11)
[2019-11-03] VITALS (8 sets, daily range): BP systolic 123–157; BP diastolic 53–67
--- NOTE | 2019-11-03 00:12 | Progress Note ---
DATE: 11/02/2019 SUBJECTIVE: The patient lying supine in bed on her left side, still has some abdominal "soreness." No complaints of nausea or vomiting. She had some indigestion after a sandwich earlier, but a one time dose of Tums helped this. She had two bowel movements today. No chills or fever. No panic attacks out of bed with bathroom privileges. MEDICATIONS: Reviewed. OBJECTIVE: VITAL SIGNS: Temperature 96.4, afebrile, heart rate 56, blood pressure 116/64, respirations 18, and oxygen saturation 99%. Intake 3940 mL. GENERAL: Supine, minimal discomfort. LUNGS: Clear to auscultation. Respirations unlabored. HEENT: EOMI. NECK: Supple. CARDIOVASCULAR: Regular rate and rhythm. No murmur. Normal saline infusing at 100 mL an hour into a PIV. ABDOMEN: Bowel sounds positive. Soft, mildly tender to gentle palpation. EXTREMITIES: No clubbing, cyanosis, edema, or signs of DVT. NEUROLOGICAL: GCS 15. Nonfocal. LABORATORY DATA: WBC 4.74, hemoglobin 11.7, hematocrit 35.9, and platelets 194. Sodium 137, potassium 4.1, chloride 107, CO2 of 26, BUN 10, creatinine 0.78, and estimated GFR greater than 60. Glucose 127, calcium 8.5, phosphorus 3.4, magnesium 1.9, total bilirubin 0.3, AST 23, ALT 19, alkaline phosphatase 52, total protein 6.1, albumin 2.9. TSH 3.838. Preliminary urine culture results collected on 10/30, show no growth in the last 18 to 24 hours. Diagnostic studies; telemetry shows sinus bradycardia with a heart rate of 54. Echocardiogram done on 10/31 shows EF 65% to 70% with impaired relaxation and mild mitral regurgitation. ASSESSMENT AND PLAN: 1. Diverticulosis, left lower quadrant abdominal pain due to low-grade diverticulitis, not visible on CT scan - continue IV Cipro and Flagyl. Afebrile, WBC WNL, no chills. Pain control with morphine, Tums improved indigestion, Protonix. 2. Possible urinary tract infection. Follow up on final urine culture and sensitivity results. No growth in 18 to 24 hours. Continue IV fluids. 3. Anxiety disorder. Continue home dose of Xanax. 4. Sinus bradycardia. Monitor. 5. Nausea and vomiting, resolved. 6. Gastroesophageal reflux disease/prophylaxis - Protonix. Time spent 35 minutes. Billing code [id number]. Dictated by Pieter Urbina, [employer] INSPECTOR MD HAKEEM Lovell/MODL /[id number]
--- NOTE | 2019-11-03 00:36 | Progress Note ---
DATE: 11/02/2019 Cardiology Progress Note SUBJECTIVE: Denies chest pain or shortness of breath. No new complaints. Abdominal discomfort improved. OBJECTIVE: VITAL SIGNS: Temperature 97 degrees, heart rate 61, blood pressure is somewhat variable but high as 189/76, respiratory rate 20, and O2 saturation 97%. GENERAL: In no acute distress, alert. NECK: No JVD. CHEST: Clear to auscultation. CARDIOVASCULAR: Regular rate and rhythm. Normal S1 and S2. ABDOMEN: Soft. Bowel sounds positive. EXTREMITIES: No edema. CARDIOVASCULAR MEDICATIONS: Reviewed, metoprolol tartrate 25 mg daily. STUDIES: Reviewed. Cardiac biomarkers, troponin I negative x3. BNP less than 10. White blood cells 4.7, hemoglobin 11.7. Telemetry in sinus rhythm. Echocardiogram with preserved left ventricular systolic function, LVEF 60% to 65%, impaired LV relaxation, trace mitral and tricuspid regurgitation. ASSESSMENT: 84-year-old woman with hypertension, rare PVCs, on telemetry. Anxiety, urinary tract infection, presents with suspected diverticulitis/abdominal pain in the setting of history of diverticulosis. RECOMMENDATIONS: The patient seems to be improving with antibiotic therapy and conservative management. Continue to monitor response. Blood pressure remains somewhat labile, however, elevated. We will add low-dose amlodipine and continue beta-radha. Collin Winston MD AFBertha/SRI /[id number]
[2019-11-03] MEDS: SODIUM CHLORIDE 0.9% 1000ML 1,000 ML IV SCH (03:34)
[2019-11-03] MEDS: CIPROFLOXACIN 400 MG/D5W 200ML 200 ML IV SCH ×2 (05:00→16:29)
[2019-11-03] MEDS: METRONIDAZOLE 500MG/NS 100ML 100 ML IV SCH ×3 (05:23→22:00)
--- NOTE | 2019-11-03 05:54 | NUR ---
PT RESTED DURING THE NIGHT ,DENIES PAIN .NO ACUTE DISTRESS NOTED ,CALL LIGHT WITH IN REACH ,CONTINUE TO MONITOR
--- NOTE | 2019-11-03 07:07 | NUR ---
BEDSIDE REPORT GIVEN TO THE ON COMING NURSE
--- NOTE | 2019-11-03 07:07 | NUR ---
BEDSIDE REPORT GIVEN TO THE ON COMING NURSE
[2019-11-03] MEDS: PANTOPRAZOLE SOD 40 MG TABEC PO SCH (08:24)
[2019-11-03] MEDS: LACTOBACILLUS ACIDOPHILUS CAPSULE PO SCH (08:24)
[2019-11-03] MEDS: AMLODIPINE BESYLATE 5 MG TAB PO SCH (08:24)
[2019-11-03] MEDS: CHOLECALCIFEROL 1,000 UNIT TAB PO SCH (08:24)
[2019-11-03] MEDS: CYANOCOBALAMIN 1,000 MCG TAB PO SCH (08:24)
[2019-11-03] MEDS: METOPROLOL SUCCINATE 25 MG TAB XL PO SCH (08:25)
--- NOTE | 2019-11-03 15:58 | Progress Note ---
DATE: 11/03/2019 Cardiology Progress Note SUBJECTIVE: Denies any chest pain or shortness of breath. OBJECTIVE: VITAL SIGNS: Temperature 97.5, heart rate 63, blood pressure 156/67, respiratory rate 20, and O2 saturation 95%. GENERAL: In no acute distress. Alert. NECK: No JVD. CHEST: Clear to auscultation. CARDIOVASCULAR: Regular rate and rhythm. Normal S1 and S2. No S3. No S4. ABDOMEN: Soft. Bowel sounds positive. EXTREMITIES: No edema. CARDIOVASCULAR MEDICATIONS: Reviewed. Metoprolol succinate 25 mg daily and amlodipine 2.5 mg daily. STUDIES: Reviewed. Creatinine 0.7. White blood cells 4.7, hemoglobin 11.7, and platelets 194. ASSESSMENT AND PLAN: An 84-year-old woman with hypertension, anxiety, premature ventricular contractions, diverticulosis, now with resolved abdominal discomfort. RECOMMEND: 1. Continue current cardiovascular medications. 2. On telemetry sinus rhythm over the last several days. Okay to discharge from a cardiovascular standpoint with outpatient followup in 4 to 6 weeks. MD ANDRIA Aceves/SRI /[id number]
--- NOTE | 2019-11-03 18:27 | Progress Note ---
DATE: 11/03/2019 SUBJECTIVE: The patient is sitting on the edge of the bed. States she feels she is ready to be discharged home. She is feeling much better. She does have some abdominal tenderness when sitting or with pressure applied to the abdomen. MEDICATIONS: Reviewed. OBJECTIVE: VITAL SIGNS: Temperature 97.5, heart rate 63, blood pressure 156/67, respirations 20, and oxygen saturation 95%. GENERAL: No new complaints. LUNGS: Clear to auscultation. RESPIRATORY: Pattern even and labored. HEENT: Extraocular eye movements intact. NECK: Supple. No lymphadenopathy, thyromegaly, or JVD. CARDIOVASCULAR: Regular rate and rhythm. No murmur. Normal saline infusing at 100 mL an hour. Anterior peripheral IV. ABDOMEN: Bowel sounds positive. Soft, mildly tender to gentle palpation. EXTREMITIES: No clubbing, cyanosis, edema, or signs of DVT. NEUROLOGICAL: GCS 15. Nonfocal. LABORATORY DATA: No new labs today. Lab holiday today. No new imaging studies. ASSESSMENT AND PLAN: 1. Diverticulosis, left lower quadrant abdominal pain due to low-grade diverticulitis, not visible on CT scan-continue IV Cipro and Flagyl. Afebrile, WBC has been within normal limits, no chills. Pain control with morphine. Tums improved. Indigestion, Protonix. 2. Possible urinary tract infection. Final urine culture results from the urine culture collected on October 30 show no growth after 36 to 48 hours. 3. Anxiety disorder. Continue home dose of Xanax. 4. Sinus bradycardia. Monitor. 5. Nausea and vomiting, resolved. 6. Gastroesophageal reflux disease/prophylaxis-Protonix. Time spent 35 minutes. Billing code, [id number]. Dictated by Pieter Urbina NP Kennedy Van MD HWP/MODL /[id number]
--- NOTE | 2019-11-03 19:27 | NUR ---
RECEIVED THE PATIENT SITTING ON THE SIDE OF THE BBED AOX3 RESPIRATIONS ARE EVEN AND UNLABORED TELE SHOWS SR DENIES PAIN CALL LIGHT WITH IN REACH .CONTINUE TO MONITOR
[2019-11-04] VITALS: BP 123/55
[2019-11-04 04:00] VITALS: BP 126/70
[2019-11-04] MEDS: CIPROFLOXACIN 400 MG/D5W 200ML 200 ML IV SCH (05:07)
[2019-11-04] MEDS: METRONIDAZOLE 500MG/NS 100ML 100 ML IV SCH (05:27)
--- NOTE | 2019-11-04 05:28 | NUR ---
PT RESTED DURING THE NIGHT ,DENIES PAIN .NO ACUTE DISTRESS NOTED ,CALL LIGHT WITH IN REACH ,CONTINUE TO MONITOR
--- NOTE | 2019-11-04 07:00 | NUR ---
BEDSIDE SHIFT REPORT RECEIVED FROM THE VINYL TOP INSTALLER RN. EDUCATED PT ABOUT FALL PRECAUTIONS. PT VERBALIZED UNDERSTANDING. CALL LIGHT WITH IN EASY REACH. INSTRUCTED PT TO USE CALL LIGHT FOR ALL THE NEEDS. BED IS LOW AND LOCKED. SIDE RAILS X2. BED ALARM IS ON. PT DENIES NEEDS AT THIS TIME.
--- NOTE | 2019-11-04 07:08 | NUR ---
BEDSIDE REPORT GIVEN TO THE ONCOMING NURSE
[2019-11-04] MEDS ORDERED: CIPRO500 MG PO (07:14)
[2019-11-04] MEDS ORDERED: FLAGYL500 MG PO (07:14)
--- NOTE | 2019-11-04 07:59 | Discharge Summary ---
CONSULTING PHYSICIANS: Included Dr. Collin Rogel and Dr. Don Vogel. HISTORY: Ms. Clay is an 84-year-old female, who had about a 3-to 4-week duration of abdominal soreness with knife-like pains in the left abdomen, radiating to her back. For 2 weeks, she had fasted on the evening meals only and then the week prior to admission, she went off the fast, but had no food the night prior to admission. Her first diverticulosis attack was about in 1982. She was told to eat more fiber at that time. She went to her PCP for this attack and was prescribed oral Cipro and Flagyl. She did not improve and decided to come to the emergency department. She denies any sick contacts. She states she and her are in quarantine themselves basically to avoid contact with others and denied any recent camping. ADMITTING DIAGNOSES: Included: 1. Left lower quadrant abdominal pain due to diverticulosis without imaging evidence of diverticulitis. 2. Possible urinary tract infection. 3. Nausea and vomiting, resolved. 4. Anxiety disorder. 5. Gastroesophageal reflux disease. DISCHARGE DIAGNOSES: 1. Diverticulosis, left lower quadrant abdominal pain due to low-grade diverticulitis, not visible on CT scan. 2. Anxiety disorder. 3. Sinus bradycardia. 4. Nausea and vomiting, resolved. 5. Gastroesophageal reflux disease. HOSPITAL COURSE: The patient was put on IV Cipro and Flagyl with improvement. She was afebrile with WBCs within normal limits throughout her stay. No chills. Pain controlled with morphine. Tums improved her indigestion and she remained on Protonix. There was concern for possible urinary tract infection and a followup urine culture and sensitivity showed no growth. Her home dose of Xanax was continued for anxiety. Per Cardiology, okay to discharge home from their standpoint with outpatient followup in 4 to 6 weeks. Blood pressure was somewhat labile, however, elevated and a low dose of amlodipine and beta-radha were used. She will continue these at home. She did have some premature ventricular contractions. An echocardiogram was done on 10/31 with estimated ejection fraction of 65% to 70% with mild mitral regurgitation and impaired relaxation. Per Dr. Vogel's note, the patient has a history of anal cancer in situ, status post resection. The patient refused chemotherapy and radiation in the past and is to follow up with Dr. Padilla with Surgery. She is to follow up with Gastroenterology on an outpatient basis as directed. Continue cardiac diet. Activity level as tolerated. We will send her home on prescriptions of Cipro and Flagyl each 500 mg b.i.d. for 10 days. Dictated by Pieter Urbina, FLAVIO MD NATALIE LovellP/MODL /[id number]
[2019-11-04 08:00] VITALS: BP 156/69
--- NOTE | 2019-11-04 08:15 | NUR ---
PT C/O BLOOD IN STOOL YESTERDAY NIGHT AND THIS MORNING. INFORMED THE SAME TO TANIA MUNIZ AND DR. Mary ISRAEL.
[2019-11-04] MEDS: PANTOPRAZOLE SOD 40 MG TABEC PO SCH (08:30)
--- NOTE | 2019-11-04 08:35 | NUR ---
NEW ORDER FOR STAT CBC
[2019-11-04 08:37] VITALS: BP 156/69
[2019-11-04] MEDS: AMLODIPINE BESYLATE 5 MG TAB PO SCH (08:59)
[2019-11-04] MEDS: LACTOBACILLUS ACIDOPHILUS CAPSULE PO SCH (08:59)
[2019-11-04] MEDS: METOPROLOL SUCCINATE 25 MG TAB XL PO SCH (09:00)
[2019-11-04] MEDS: CYANOCOBALAMIN 1,000 MCG TAB PO SCH (09:00)
[2019-11-04] MEDS: CHOLECALCIFEROL 1,000 UNIT TAB PO SCH (09:00)
[2019-11-04 09:40] LABS: BASOPHILS % 0.5 % (0.0-1.0); EOSINOPHILS # (AUTO) 0.1 (0.0-0.4); EOSINOPHILS % 2.2 % (0.0-6.0); HEMATOCRIT 38.8 % (34.2-44.1); HEMOGLOBIN 12.8 g/dL (12.0-16.0); LYMPHOCYTES # (AUTO) 1.4 (1.0-3.2); LYMPHOCYTES % 23.7 % (18.0-39.1); MEAN CORPUSCULAR HEMOGLOBIN 30.8 pg (28-32); MEAN CORPUSCULAR VOLUME 93.3 fL (81-99); MONOCYTES # (AUTO) 0.7 (0.2-0.8); MONOCYTES % 12.3 % (4.4-11.3); NEUTROPHILS # (AUTO) 3.7 (2.1-6.9); PLATELET COUNT 224 x10e3/uL (140-360); RED BLOOD COUNT 4.16 x10e6/uL (3.6-5.1); RED CELL DISTRIBUTION WIDTH 12.3 % (11.7-14.4)
--- NOTE | 2019-11-04 10:00 | NUR ---
PAGED TANIA RANGER AIDE AND LEFT MESSAGE REGARDING CBC VALUES. WAITING FOR THE RESPONSE.
--- NOTE | 2019-11-04 10:25 | NUR ---
ALVARO TO D/C PT PER DR. Mary ISRAEL AND TANIA MUNIZ.
--- NOTE | 2019-11-04 10:54 | NUR ---
PT DISCHARGED HOME SAFELY WITH FAMILY MEMBER. TELEMETRY AND IV REMOVED, TIP INTACT. DRESSING APPLIED. RX GIVEN. DISCHARGE INSTRUCTIONS GIVEN AND PATIENT VERBALIZED UNDERSTANDING. PT ESCORTED VIA WHEEL CHAIR WITH THE TECH TO THE PRIVATE AUTO AT THE FRONT ENTRANCE. PT DENIED FURTHER NEEDS.
--- NOTE | 2019-11-04 11:41 | Progress Note ---
DATE: 11/04/2019 Cardiology Progress Note SUBJECTIVE: Denies any chest pain or shortness of breath. OBJECTIVE: VITAL SIGNS: Temperature 95.9, heart rate 69, blood pressure 156/69, respiratory rate 18, and O2 saturation 99%. GENERAL: In no acute distress. Alert. NECK: No JVD. CHEST: Clear to auscultation. CARDIOVASCULAR: Regular rate and rhythm. Normal S1 and S2. No S3 or S4. ABDOMEN: Soft. Bowel sounds positive. EXTREMITIES: No edema. CARDIOVASCULAR MEDICATIONS: Reviewed. Metoprolol succinate 25 mg daily and amlodipine 2.5 mg daily. STUDIES: Reviewed. Sodium 137, potassium 4.1, chloride 107, bicarbonate 26, BUN 10, creatinine 0.78, and glucose 127. White blood cells 4.7, hemoglobin 11.7, and platelets 194. AST 23, ALT 19, alkaline phosphatase 52, and total bilirubin 0.3. ASSESSMENT AND PLAN: An 84-year-old woman presents with diverticulosis and abdominal pain, now resolved, premature ventricular contractions with improvement of beta-radha therapy, anemia, and hypertension. RECOMMEND: Continue current cardiovascular medications. The patient to follow up in 4 to 6 weeks. MD ANDRIA Aceves/SRI /[id number]
== END 2019-11-04 11:01 | disposition home or self-care (01) ==
LOC: ER 21:59 → ERHOLD 11-01 00:38 → MED/SURG2 11-01 03:01
PROVIDERS: ADMIT Internal Medicine; ATTEND Internal Medicine
DX: K57.52 Diverticulitis of both small and large intestine without perforation or abscess without bleeding (principal); F41.9 Anxiety disorder, unspecified; I10 Essential (primary) hypertension; E78.5 Hyperlipidemia, unspecified; K21.9 Gastro-esophageal reflux disease without esophagitis; R11.2 Nausea with vomiting, unspecified; Z82.49 Family history of ischemic heart disease and other diseases of the circulatory system; Z80.9 Family history of malignant neoplasm, unspecified; Z87.891 Personal history of nicotine dependence; I49.3 Ventricular premature depolarization; Z85.048 Personal history of other malignant neoplasm of rectum, rectosigmoid junction, and anus; D64.9 Anemia, unspecified; R00.1 Bradycardia, unspecified
CPT/HCPCS: 36415; 71046; 74177; 80053; 81001; 82550; 82553; 83690; 83735; 83880; 84100; 84443; 84484; 85025; 87086; 93005; 93306; 96361; 97139; 99284; G0378; J1650; J2270; J2405; J7030; Q0162; Q9967

== ENCOUNTER 2019-11-18 19:05 | Emergency (ER) | payer OTHER ==
[~2019-11-18] VITALS: Ht 162.6 cm; Wt 79.4 kg
[~2019-11-18 19:05] MED LIST changes: +CIPRO500 MG PO; +FLAGYL250 MG PO; +FLAGYL500 MG PO
--- OUTSIDE RECORDS SUMMARY | 2019-11-18 19:09 | XMS REPORT ---
Author Author [facility] t Organization [facility] Address [address] [place] [place] [address] Phone Unavailable Care Team Providers Care Optical Fabrication Technician Name Role Phone DO Delfin MILLER PCP KEO MUELLER Attsol Unavailable Aurora RUSSO Attphyshahzad Unavailable BILLY MUELLER Attphyshahzad Unavailable BILLY MUELLER Admsol Unavailable Payers Payer Name Policy Type Policy Number Effective Date Expiration Date Shahzad Rubi [id number] 2018 00:00:00 MONA Lucia [facility] Advance Directives Directive Decision Effective Date Termination Date Comments Sour ce Yes N/A [facility] Problems Condition Name Condition Details Condition Category Status Onset Date Resolution Date Last Treatment Date Treating Clinician Comments Source Colitis due to Clostridium difficile C. difficile colitis Problem Active [facility] Diverticulitis of intestine Diverticulitis Problem Active [facility] Diverticulitis of large intestine Diverticulitis large intestine Pr oblem Active [facility] Allergies, Adverse Reactions, Alerts This patient has no known allergies or adverse reactions. Social History Social Habit Start Date Stop Date Quantity Comments Source Sex Assigned At 1935 00:00:00 1935 00:00:00 Female [facility] Medications Ordered Medication Name Filled Medication Name Start Date Stop Da te Current Medication? Ordering Clinician Indication Dosage Frequency Signature (SIG) Comments Components Source Ciprofloxacin Hcl (Cipro) 500 Mg TABLET Ciprofloxacin Hcl (C ipro) 500 Mg TABLET 2019-11-04 07:14:00 Yes 500 [facility] Metronidazole (Flagyl) 500 Mg TABLET Metronidazole (Flagyl) 500 Mg TABLET 2019-11-04 07:14:00 Yes 500 [facility] Acetaminophen With Codeine (Tylenol With Codeine #3 Ta blet) 1 Each TABLET Acetaminophen With Codeine (Tylenol With Codeine #3 Tablet) 1 Each TABLET Yes 300 [facility] Acyclovir Acyclovir Yes 200 [facility] Alprazolam (Xanax) 0.25 Mg TABLET Alprazolam (Xanax) 0.25 Mg TABLET Yes .25 [facility] Cholestyramine (With Sugar) (Questran Packet) 4 Gm PAC KET Cholestyramine (With Sugar) (Questran Packet) 4 Gm PACKET Yes 4 [facility] Lactobacillus Acidophilus (Acidophilus) 1 Each TAB.ABILIO W Lactobacillus Acidophilus (Acidophilus) 1 Each TAB.CHEW Yes 2 [facility] Ondansetron (Zofran Odt) 4 Mg TAB.RAPDIS Ondansetron ( Zofran Odt) 4 Mg TAB.RAPDIS Yes 4 [facility] Triamcinolone Acetonide (Kenalog-40) 40 Mg/1 Ml VIAL T riamcinolone Acetonide (Kenalog-40) 40 Mg/1 Ml VIAL Yes 60 [facility] Vit B12 Vit B12 Yes 1 [facility] Vit D3 Vit D3 Yes 1 [facility] Metronidazole (Flagyl) 250 Mg TABLET Metronidazole (Flagyl) 250 Mg TABLET 2019-11-04 00:00:00 No [facility] Cephalexin Monohydrate (Keflex) 500 Mg CAPSULE Cephale khoa Monohydrate (Keflex) 500 Mg CAPSULE 2017-07-01 00:00:00 No 500 [facility] Docusate Calcium (Surfak) 240 Mg CAPSULE Docusate Calc ium (Surfak) 240 Mg CAPSULE 2017-07-01 00:00:00 No 240 [facility] Lorazepam (Ativan) 1 Mg TABLET Lorazepam (Ativan) 1 Mg TABLET 2017-07-01 00:00:00 No .5 [facility] Ibuprofen Ibuprofen 2016-11-22 00:00:00 No [facility] Lactobacillus Combo No.6 (Probiotic Complex) 1 Each TA BLET Lactobacillus Combo No.6 (Probiotic Complex) 1 Each TABLET 2016-11-22 00:00:00 No 1 [facility] Pantoprazole Sodium (Protonix) 40 Mg TABLET. Pantopr azole Sodium (Protonix) 40 Mg TABLET. 2016-11-22 00:00:00 No 40 [facility] Vital Signs Vital Name Observation Time Observation Value Comments Source Body Temperature 2019-11-04 08:37:00 95.9 [degF] [facility] Weight 2019-11-01 03:10:00 170 [lb_av] [facility] BMI (Body Mass Index) 2019-11-01 03:10:00 29.2 kg/m2 [facility] Procedures Procedure Date / Time Performed Performing Clinician [facility] e Computed tomography of abdomen and pelvis with contrast 00:00:00 [facility] X-ray of chest, two views 2019-10-31 00:00:[address] [facility] [place] [place] Plan of Care Planned Activity Planned Date Details Comments Source Goal Patient referral [code = 0861779 ] [facility] Goal Patient referral [code = 2581189 ] [facility] Instructions Abdominal Pain - Adult [facility] Instructions Angina [facility] Instructions Hypertension [facility] Encounters Start Date/Time End Date/Time Encounter Type Admission Type Attendi [facility] Care Department Encounter ID Source 2019-11-01 00:38:00 2019-11-04 11:01:00 Discharged Inpatient (obs) 1 KEO MUELLER [facility] [id number] [facility] [place] 2018-10-14 22:49:00 2018-10-15 18:22:00 Discharged Inpatient (obs) 1 REGINA RUSSO [facility] [id number] [facility] Results Test Description Test Time Test Comments Results Result Comments Source Blood leukocytes automated count (number/volume) 2019-11-04 09:30:00 Test Item White Blood Count (test code = 6690-2) 6.03 [facility] erythrocytes automated count (number/volume)2019-11-04 09:30:00* Test Item Value Reference Range Interpretation Comments Red Blood Count (test code = 789-8) 4.16 [facility]ress[facility] hemoglobin measurement (moles/volume)2019-11-04 09:30:00* Test Item Value Reference Range Interpretation Comments Hemoglobin (test code = 41024-9) 12.8 [facility]ressAutomated blood hematocrit (volume fraction)2019-11-04 09:30:00* Test Item Value Reference Range Interpretation Comments Hematocrit (test code = 4544-3) 38.8 [facility]ressAutomated erythrocyte mean corpuscular velwfv5868-20-76 09:30:00* Test Item Value Reference Range Interpretation Comments Mean Corpuscular Volume (test code = 787-2) 93.3 [facility]ressAutomated erythrocyte mean corpuscular hemoglobin (mass per erythrocyte)2019-11-04 09:30:00* Test Item Value Reference Range Interpretation Comments Mean Corpuscular Hemoglobin (test code = 785-6) 30.8 [facility]ressAutomated erythrocyte mean corpuscular hemoglobin concentration measurement (mass/volume)2019-11-04 09:30:00* Test Item Value Reference Range Interpretation Comments Mean Corpuscular Hemoglobin Concent (test code = 786-4) 33.0 [facility] CypressRDW HmdSk-Rgn6699-77-04 09:30:00* Test Item Value Reference Range Interpretation Comments Red Cell Distribution Width (test code = 37068-0) 12.3 [facility] CypressAutomated blood platelet count (count/volume)2019-11-04 09:30:00* Test Item Value Reference Range Interpretation Comments Platelet Count (test code = 777-3) 224 [facility] CypressAutomated blood segmented neutrophil count as percentage of total ljpolveqfx2764-73-40 09:30:00* Test Item Value Reference Range Interpretation Comments Neutrophils (%) (Auto) (test code = 59998-5) 61.0 [facility] CypressAutomated blood lymphocyte count as percentage ot total lbstgtlfku2901-36-94 09:30:00* Test Item Value Reference Range Interpretation Comments Lymphocytes (%) (Auto) (test code = 736-9) 23.7 [facility] CypressAutomated blood monocyte count as percentage of total ompuiuzvtk7933-85-33 09:30:00* Test Item Value Reference Range Interpretation Comments Monocytes (%) (Auto) (test code = 5905-5) 12.3 [facility] CypressAutomated blood eosinophil count as percentage of total uvhesniazv7501-94-51 09:30:00* Test Item Value Reference Range Interpretation Comments Eosinophils (%) (Auto) (test code = 713-8) 2.2 [facility] CypressAutomated blood basophil count as percentage of total stxxpxpdjq2833-11-57 09:30:00* Test Item Value Reference Range Interpretation Comments Basophils (%) (Auto) (test code = 706-2) 0.5 [facility] CypressFluoroscopic procedure less than one hour defcdewc9661-50-23 09:30:00* Test Item Value Reference Range Interpretation Comments IM GRANULOCYTES % (test code = IM GRANULOCYTES %) 0.3 [facility] CypressAutomated blood neutrophil count 2019-11-04 09:30:00* Test Item Value Reference Range Interpretation Comments Neutrophils # (Auto) (test code = 751-8) 3.7 [facility]ressBlood lymphocytes count (number/volume) 2019-11-04 09:30:00* Test Item Value Reference Range Interpretation Comments Lymphocytes # (Auto) (test code = 42695-3) 1.4 [facility]Bl[facility] monocytes automated count (number/volume)2019-11-04 09:30:00* Test Item Value Reference Range Interpretation Comments Monocytes # (Auto) (test code = 742-7) 0.7 [facility] CypressAutomated blood eosinophil count 2019-11-04 09:30:00* Test Item Value Reference Range Interpretation Comments Eosinophils # (Auto) (test code = 711-2) 0.1 [facility] CypressAutomated blood basophil count (count/volume)2019-11-04 09:30:00* Test Item Value Reference Range Interpretation Comments Basophils # (Auto) (test code = 704-7) 0.0 [facility] CypressFluoroscopic procedure less than one hour ftvkbsgk3129-52-93 09:30:00* Test Item Value Reference Range Interpretation Comments Absolute Immature Granulocyte (auto (adina t code = Absolute Immature Granulocyte (auto) 0.02 [facility] sodium measurement (moles/volume)2019-11-02 05:20:00* Test Item Value Reference Range Interpretation Comments Sodium Level (test code = 2951-2) 137 [facility]ere[facility] or plasma potassium measurement (moles/volume)2019-11-02 05:20:00* Test Item Value Reference Range Interpretation Comments Potassium Level (test code = 2823-3) 4.1 [facility]ererum or plasma chloride measurement (moles/volume)2019-11-02 05:20:00* Test Item Value Reference Range Interpretation Comments Chloride Level (test code = 2075-0) 107 [facility]ererum or plasma carbon dioxide, total measurement (moles/volume)2019-11-02 05:20:00* Test Item Value Reference Range Interpretation Comments Carbon Dioxide Level (test code = 2028-9) 26 [facility]ererum or plasma anion kdn8542-60-52 05:20:00* Test Item Value Reference Range Interpretation Comments Anion Gap (test code = 40777-5) 8.1 [facility]ererum or plasma urea nitrogen measurement (mass/volume)2019-11-02 05:20:00* Test Item Value Reference Range Interpretation Comments Blood Urea Nitrogen (test code = 3094-0) 10 [facility]ererum or plasma creatinine measurement (mass/volume)2019-11-02 05:20:00* Test Item Value Reference Range Interpretation Comments Creatinine (test code = 2160-0) 0.78 [facility]ererum or plasma urea nitrogen/creatinine mass qjebs3951-15-36 05:20:00* Test Item Value Reference Range Interpretation Comments BUN/Creatinine Ratio (test code = 3097-3) 13 [facility]ressEstimated glomerular filtration rate (GFR) ahhenzappjoil2100-85-83 05:20:00* Test Item Value Reference Range Interpretation Comments Estimat Glomerular Filtration Rate (test code = 796969107) > 60 [facility] CypressGlucose qhwljerwxbu4372-14-96 05:20:00* Test Item Value Reference Range Interpretation Comments Glucose Level (test code = CCD6242) 127 [facility]ererum or plasma calcium measurement (mass/volume)2019-11-02 05:20:00* Test Item Value Reference Range Interpretation Comments Calcium Level (test code = 66780-4) 8.5 [facility]ressPhosphorus pzikgzdiwku4838-63-53 05:20:00 * Test Item Value Reference Range Interpretation Comments Phosphorus Level (test code = YUF7829) 3.4 [facility]ererum or plasma magnesium measurement (mass/volume)2019-11-02 05:20:00* Test Item Value Reference Range Interpretation Comments Magnesium Level (test code = 18211-6) 1.9 [facility]ererum or plasma total bilirubin measurement (mass/volume)2019-11-02 05:20:00* Test Item Value Reference Range Interpretation Comments Total Bilirubin (test code = 1975-2) 0.3 [facility] CypressFluoroscopic procedure less than one hour emzmmzvq3978-45-13 05:20:00* Test Item Value Reference Range Interpretation Comments Aspartate Amino Transf (AST/SGOT) (test code = Aspartate Amino Transf (AST/SGOT)) 23 [facility] Centererum or plasma alanine aminotransferase measurement (enzymatic activity/volume)2019-11-02 05:20:00* Test Item Value Reference Range Interpretation Comments Alanine Aminotransferase (ALT/SGPT) (test code = 1742-6) 19 [facility] Centererum or plasma protein measurement (mass/volume)2019-11-02 05:20:00* Test Item Value Reference Range Interpretation Comments Total Protein (test code = 2885-2) 6.1 [facility]ererum or plasma albumin measurement (mass/volume)2019-11-02 05:20:00* Test Item Value Reference Range Interpretation Comments Albumin (test code = 1751-7) 2.9 [facility] CypressPlasma globulin measurement (mass/volume) 2019-11-02 05:20:00* Test Item Value Reference Range Interpretation Comments Globulin (test code = 68362-3) 3.2 [facility]ererum or plasma albumin/globulin mass yvziu1696-81-15 05:20:00* Test Item Value Reference Range Interpretation Comments Albumin/Globulin Ratio (test code = 1759-0) 0.9 [facility] Centererum or plasma alkaline phosphatase measurement (enzymatic activity/volume)2019-11-02 05:20:00* Test Item Value Reference Range Interpretation Comments Alkaline Phosphatase (test code = 6768-6) 52 [facility] Centererum or plasma thyrotropin measurement by detection limit <= 0.005 miu/l (units/volume)2019-11-02 05:20:00* Test Item Value Reference Range Interpretation Comments Thyroid Stimulating Hormone (TSH) (test code = 28248-2) 3.838 [facility] Centererum or plasma creatine kinase measurement (enzymatic activity/volume)2019-11-01 13:35:00* Test Item Value Reference Range Interpretation Comments Creatine Kinase (test code = 2157-6) 80 [facility] Centererum or plasma creatine kinase MB measurement (mass/volume)2019-11-01 13:35:00* Test Item Value Reference Range Interpretation Comments Creatine Kinase MB (test code = 46668-0) 2.20 [facility] CypressTroponin I measurement by highly sensitive enzyme nnelgljuppq6824-29-09 13:35:00* Test Item Value Reference Range Interpretation Comments Troponin I (test code = 28252-2) < 0.001 [facility] CypressCHEST 2 YCFZK6185-39-08 00:12:00 [facility] [address] [address] Patient Name: YANIRA COKER MR #: [id number] : 1935 Age/Sex: 84/F Req #: [id number] Adm Physician: Ordered by: KEO MUELLER DO Report #: [id number] Location: ER Room/Bed: Procedure: [id number] DX/CHEST 2 VIEWS Exam Date: 10/31/19 Exam Time: 2346 REPORT STATUS: Signed EXAMINATION: CHEST 2 VIEWS INDICATION: angina [id number] COMPARISON: None FINDINGS: PA and lateral views TUBES and LINES: None. L UNGS: Lungs are well inflated. Lungs are clear. There is no evidence of pne umonia or pulmonary edema. PLEURA: No pleural effusion or pneumothorax. HEART AND MEDIASTINUM: The cardiomediastinal silhouette is unremarkable. BONES AND SOFT TISSUES: No acute osseous lesion. Right shoulder joint lo ose bodies again noted. UPPER ABDOMEN: No free air under the diaphragm. IMPRESSION: No acute thoracic radiographic abnormality. Signed by: Josh Hamilton MD on 11/01/2019 12:13 AM Dictated By: JOSH HAMILTON MD Transcribed B y: MIRIAM on 11/01/1912 COPY TO: KEO MUELLER DO CT ABDOMEN/PELVIS [id number] 00:07:[address] [place] [address] Patient Name: YANIRA COKER MR #: [id number] : 1935 Age/Sex: 84/F Req #: [id number] Adm Physician: Ordered by: KEO MUELLER DO Report #: [id number] Location: ER Room/Bed: Procedure: [id number] CT/CT ABDOMEN/PE LVIS W Exam Date: 10/31/19 Exam Time: 2346 REPORT STATUS: Signed EXAM: CT Abdomen and Pelvis WITH contrast INDICATION: abd pain [id number] COMPARISON: CT abdomen 04/09/2016 TECHNIQUE: Abdomen and pelvis were scanned ut ilizing a multidetector helical scanner from the lung base to the pubic symphy sis after administration of IV contrast. Coronal and sagittal reformations wer e obtained. Routine protocol was performed. Scan was performed when during por kavita venous phase. IV CONTRAST: 100 mL of Isovue 370 ORAL CONTR AST: Water COMPLICATIONS: None RADIATION DOSE: Tota l DLP: 644 mGy*cm Estimated effective dose: (DLP x 0.015 x size factor) m Sv CTDIvol has been reviewed. It is below the limits set by the Radiation Protocol Committee (RPC). Dose modulation, iterative reconstruction, a nd/or weight based adjustment of the mA/kV was utilized to reduce the radiatio n dose to as low as reasonably achievable. FINDINGS: LINES and TUBE S: None. LOWER THORAX: Small hiatal hernia. HEPATOBILIARY: Subtle non specific nodularity of the posterior aspect of the right hepatic lobe. No foc al hepatic lesions. No biliary ductal dilation. GALLBLADDER: Surgically ab sent. SPLEEN: No splenomegaly. PANCREAS: No focal masses or ductal di latation. ADRENALS: No adrenal nodules KIDNEYS/URETERS: Kidneys enhance symmetrically. No hydronephrosis. No cystic or solid mass lesions. N o stones. GI TRACT: No abnormal distention, wall thickening, or evidence of bowel obstruction. Small and large bowel diverticulosis. Tiny ileal lipoma ( image 42). Appendix is normal. PELVIC ORGANS/BLADDER: Unremarkable. LYMPH NODES: Prominent nonspecific left inguinal lymph nodes that measure up to 1.2 cm in short axis, possibly reactive. VESSELS: Scattered atherosclero tic calcifications. PERITONEUM / RETROPERITONEUM: No free air or fluid. BONES: No acute osseous abnormality. SOFT TISSUES: Tiny umbilical hernia. IMPRESSION: 1. No acute abdominal or pelvic abnormality. 2. Extensive diverticulosis of the small and large bowel. No inflammation. Signed by: Josh Hamilton MD on 11/01/2019 12:12 AM Dictated By: JOSH HAMILTON MD Transc ribed By: MIRIAM on 11/01/1911 COPY TO: KEO MUELLER DO Urine color qqxonbstqjjgy5555-32-55 22:48:00* Test Item Value Reference Range Interpretation Comments Urine Color (test code = 5778-6) YELLOW [facility]ressUrine yiseszx2477-99-44 22:48:00* Test Item Value Reference Range Interpretation Comments Urine Clarity (test code = 24892-6) CLOUDY [facility] Centerpecific gravity of Urine by Test strip 2019-10-31 22:48:00* Test Item Value Reference Range Interpretation Comments Urine Specific [place] (test code = 5811-5) 1.015 [facility]ressUrine pH measurement by automated test ahsst7911-61-35 22:48:00* Test Item Value Reference Range Interpretation Comments Urine pH (test code = 84677-1) 7.5 [facility] CypressUrine leukocyte esterase detection by glskgpaa8291-34-64 22:48:00* Test Item Value Reference Range Interpretation Comments Urine Leukocyte Esterase (test code = 5799-2) 1+ [facility] CypressUrine nitrite mneqsbrli7774-77-53 22:48:00* Test Item Value Reference Range Interpretation Comments Urine Nitrite (test code = 39903-1) NEGATIVE [facility]ressUrine protein measurement by test strip (mass/volume)2019-10-31 22:48:00* Test Item Value Reference Range Interpretation Comments Urine Protein (test code = 5804-0) NEGATIVE [facility]ressUrine glucose gibgatehu5295-57-96 22:48:00* Test Item Value Reference Range Interpretation Comments Urine Glucose (UA) (test code = 2349-9) NEGATIVE [facility] CypressUrine ketones detection by automated test kdciz3614-36-24 22:48:00* Test Item Value Reference Range Interpretation Comments Urine Ketones (test code = 11587-4) NEGATIVE [facility] CypressUrine urobilinogen measurement by test strip (mass/volume)2019-10-31 22:48:00* Test Item Value Reference Range Interpretation Comments Urine Urobilinogen (test code = 45401-9) 0.2 [facility]ressUrine total bilirubin measurement (mass/volume)2019-10-31 22:48:00* Test Item Value Reference Range Interpretation Comments Urine Bilirubin (test code = 1978-6) NEGATIVE [facility] CypressUrine erythrocytes xsxwawotj9648-85-05 22:48:00* Test Item Value Reference Range Interpretation Comments Urine Blood (test code = 32328-4) NEGATIVE [facility] CypressAutomated urine sediment leukocyte count by microscopy (number/high power field)2019-10-31 22:48:00* Test Item Value Reference Range Interpretation Comments Urine WBC (test code = 5821-4) >50 [facility] CypressErythrocytes detection in urine sediment by light rjtoguqqjv5410-08-47 22:48:00* Test Item Value Reference Range Interpretation Comments Urine RBC (test code = 30209-3) 6-10 [facility] CypressBacteria detection in urine sediment by light smanezkubz5583-80-80 22:48:00* Test Item Value Reference Range Interpretation Comments Urine Bacteria (test code = 99272-9) [facility] in urine sediment by light udtmqyvhkz1882-63-82 22:48:00* Test Item Value Reference Range Interpretation Comments Urine Epithelial Cells (test code = 24201-6) FEW [facility] CypressTransitional cells detection in urine sediment by light pbbnczrtiw2082-67-11 22:48:00* Test Item Value Reference Range Interpretation Comments Urine Transitional Epithelial Cells (test code = 8249-5) MANY [facility] CypressRenal epithelial cells detection in urine sediment by light vyguhgzzrk4414-18-16 22:48:00* Test Item Value Reference Range Interpretation Comments Urine Renal Epithelial Cells (test code = 07837-0) MODERATE [facility] CypressBNP Zcj-dFkq4542-43-30 22:48:00* Test Item Value Reference Range Interpretation Comments B-Type Natriuretic Peptide (test code = 14641-4) < 10.0 [facility] Centererum or plasma lipase measurement (enzymatic activity/volume)2019-10-31 22:48:00* Test Item Value Reference Range Interpretation Comments Lipase (test code = 3040-3) 17 [facility] CypressCXR 1 VEW - [id number] 21:48:00 [facility] [address] [place] [address] Patient Name: YANIRA COKER MR #: [id number] : 1935 Age/Sex: 83/F Req #: [id number] Adm Physician: Ordered by: REGINA RUSSO MD Report #: [id number] Location: [facility] Room/Bed: Procedure: [id number] H [facility]XR [facility] Exam Date: 10/14/18 Exam Time: 2129 REPORT STATUS: Signed EXAMI NATION: CXR 1 [facility] INDICATION: Left chest pain and arm swol chris x 4 h ago. COMPARISON: None FINDINGS: TUBES and LINES: N one. LUNGS: Lungs are well inflated. Lungs are clear. There is no eviden ce of pneumonia or pulmonary edema. PLEURA: No pleural effusion or pneum othorax. HEART AND MEDIASTINUM: The cardiomediastinal silhouette is unrema rkable. BONES AND SOFT TISSUES: No acute osseous lesion. Severe degene rative changes of the right shoulder with multiple large shadowing bodies. Lik berna moderate degenerative changes in the left shoulder. Soft tissues are unrem arkable. UPPER ABDOMEN: No free air under the diaphragm. There are cholecys tectomy clips. IMPRESSION: 1. No acute thoracic abnormality. 2. Se tito degenerative changes in the right shoulder with multiple large loose join t bodies. 3. Likely moderate degenerative changes in the left shoulder. Signed by: Dr. Matthew Jones M.D. on 10/14/2018 9:50 PM Dictated By: MATTHEW JONES MD 49 Transcribed By: MIRIAM on 10/14/182149 COPY TO: REGINA RUSSO MD VQ LUNG SCAN VENT PERFUSION [place] [address] Patient Name: YANIRA COKER MR #: [id number] : 1935 Age/Sex: 81/F Req #: [id number] Adm Physician: BILLY MUELLER MD Ordered by: BILLY MUELLER MD Report #: [id number] Location: MED/SURG Room/Bed: [facility] Procedure: [id number] NM/VQ LUNG SCAN VENT PERFUSION Exam Date: Exam Time: REPORT STATUS: Signed Ventilation/perfusion lung scan Clinical Informa tion: 81 F with acute onset SOB Comparison: None Discussion: Xenon-133 gas 18 mCi was administered via inhalation. Dynamic images of the lungs in t he posterior projection were obtained through single breath, equilibrium, and washout phases. Distribution of tracer activity appears physiologic throughou t the lungs.. There are no segmental ventilatory defects. Washout of tracer is mildly delayed with no evidence of air trapping. Perfusion images of the lungs were obtained in multiple projections following intravenous administrat ion of approximately 6.6 mCi of Tc-99m MAA. Distribution of tracer appears phy siologic throughout the lungs. The contours of the lungs are well demarcated . There are no segmental perfusion defects of any size. The cardiomediasti nal silhouette is unremarkable. Impression: 1. Scan findings represe nt a VERY LOW probability for acute pulmonary embolic disease based on the JUSTIN PED II criteria. Signed by: Dr. Kristie Blair M.D. on 07/01/2017 11:14 AM Dictated By: KRISTIE BLAIR MD 13 COPY TO: DUNG MUELLER MD
[2019-11-18] MEDS ORDERED: IBUPROFEN 200 MG TAB PO ONE (19:30)
[2019-11-18] MEDS ORDERED: ONDANSETRON HCL 4 MG ORAL DISINTEGRATING TAB PO ONE (19:30)
[2019-11-18] MEDS ORDERED: ACETAMINOPHEN 325 MG TAB PO ONE (19:30)
--- NOTE | 2019-11-18 19:34 | Emergency Department Note ---
History of Present Illnes History of Present Illness Chief Complaint: Extremity Trauma/Pain History of Present Illness This is a 84 year old female c/o left wrist pain slowly getting worse for at least 1 week, worse 1 day. She may have lifted something heavy but cannot recall . Historian: Patient Arrival Mode: Car Radiotelegrapher Required: No Onset (how long ago): week(s) (1 week) Radiation: proximal Severity: moderate Onset quality: gradual Duration (how long): week(s) (1 week) Progression: worsening Chronicity: new Relieving factors: immobilization Exacerbating factors: movement Associated symptoms: denies other symptoms Treatments prior to arrival: none Past Medical/Family History Physician Review I have reviewed the patient's past medical and family history. Any updates have been documented here. Past Medical History Recent Fever: No Clinical Suspicion of Infectio: No New/Unexplained Change in Ment: No Past Medical History: Cancer, GERD Other Medical History: DIVERTICULITIS. Fracture left wrist at skating accident when she was 17 yo Past Surgical History: Cholecysctectomy, Appendectomy, Hysterectomy Other Surgery: HEMRHOIDECTOMY Social History Smoking Cessation: Never Smoker Counseling Performed: No Alcohol Use: None Any Illegal Drug Use: No TB Exposure/Symptoms: No Physically hurt or threatened: No Family History Family history of heart diseas: No Other Last Tetanus: OOD Any Pre-Existing Lines (PICC,: No Is patient up to date on immun: No Last Flu: UNK Last Pneumovax: UNK Review of Systems Review of Systems Constitutional: no symptoms EENTM: no symptoms Cardiovascular: no symptoms Respiratory: no symptoms Gastrointestinal: no symptoms Genitourinary: no symptoms Musculoskeletal: as per HPI, joint pain, joint swelling, other (swelling and pain left wrist on ulnar side, radiating to elbow and arm) Neurological: no symptoms Psychological: no symptoms Endocrine: no symptoms Hematological/Lymphatic: no symptoms Review of other systems All other systems reviewed and negative. Physical Exam Related Data Allergies: Coded Allergies: No Known Drug Allergies (Verified Allergy, Mild, 05/27/10) Triage Vital Signs Vital Signs Date Time Temp Pulse Resp B/P (MAP) Pulse Ox O2 Delivery O2 Flow Rate FiO2 11/18/19 19:20 98.5 99 18 180/80 97 Physical Exam CONSTITUTIONAL Constitutional: well-developed, well-nourished HENT HENT: normocephalic, atraumatic, oropharynx clear/moist, nose normal HENT L/R: left ext ear normal, right ext ear normal EYES Eyes: PERRL, conjunctivae normal NECK Neck: ROM normal PULMONARY Pulmonary: effort normal, breath sounds normal CARDIOVASCULAR Cardiovascular: regular rhythm, heart sounds normal, capillary refill normal, normal rate GASTROINTESTINAL Abdominal: soft, nontender, bowel sounds normal GENITOURINARY Genitourinary: exam deferred SKIN Skin: warm, dry MUSCULOSKELETAL Musculoskeletal: deformity, tenderness, swelling, other (swelling slightly deformed on ulnar side, limitted ROM due to pain, capillary refill intact distally ) NEUROLOGICAL Neurological: alert, oriented x 3, no gross motor or sensory deficits PSYCHOLOGICAL Psychological: mood/affect normal, judgement normal Results Imaging Imaging results reviewed: Yes Impressions 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 Assessment & Plan Assessment & Plan Problems: (1) Acute pain due to trauma (2) Osteoarthritis Assessment & Plan 84 yo CF hx left wrist fracture at 17 yo, acute left wrist pain after lifting heavy TV. will do an x-ray, place on a splint Reassessment Reassessment no acute fracture, will place cristian wrap and f/u dr Grisel Ott Depart Disposition: HOME, SELF-CARE Last Vital Signs Date Time Temp Pulse Resp B/P (MAP) Pulse Ox O2 Delivery O2 Flow Rate FiO2 11/18/19 19:20 98.5 99 18 180/80 97 Home Meds Active Scripts Ibuprofen (IBUPROFEN) 400 Mg Tablet, 400 MG PO Q4H, #60 TAB Prov:NISHA NAGY MD 11/18/19 Tramadol Hcl/Acetaminophen (ULTRACET TABLET) 1 Each Tablet, 1 TAB PO Q6H for pain, #30 TAB Prov:NISHA NAGY MD 11/18/19 Reported Medications Lactobacillus Acidophilus (ACIDOPHILUS) 1 Each Tab.chew, 2 CAP PO DAILY 07/01/17 Ondansetron (ZOFRAN ODT) 4 Mg Tab.rapdis, 4 MG SL Q6H PRN for NAUSEA AND VOMITING, TAB 07/01/17 Cholestyramine (With Sugar) (QUESTRAN PACKET) 4 Gm Packet, 4 GM PO BID PRN for DIARRHEA, PACKET 07/01/17 Alprazolam (XANAX) 0.25 Mg Tablet, 0.25 MG PEG Q6H PRN for ANXIETY 07/01/17 Acetaminophen With Codeine (TYLENOL WITH CODEINE #3 TABLET) 1 Each Tablet, 300 MG PO PRN, #30 TAB Take every 4 hours as needed for pain 11/25/16 Triamcinolone Acetonide (KENALOG-40) 40 Mg/1 Ml Vial, 60 G TOP TID, VIAL Apply to outer anal area After tub bath three times a day 11/25/16 [Vit B12] No Conflict Check, 1 TAB PO DAILY 11/22/16 [Vit D3] No Conflict Check, 1 CAP PO DAILY 11/22/16 Acyclovir (ACYCLOVIR) 200 Mg Capsule, 200 MG PO BID PRN for RASH, #30 CAP 03/31/16 Discontinued Scripts Ciprofloxacin Hcl (CIPRO) 500 Mg Tablet, 500 MG PO Q12H for 10 Days, #20 TAB 0 Refills Prov:TANIA HOLMAN NP 11/04/19 Metronidazole (FLAGYL) 500 Mg Tablet, 500 MG PO BID for 10 Days, #20 TAB 0 Refills Prov:TANIA HOLMAN NP 11/04/19 Medications in the ED tylenol 650mg, ibuprofen 600 mg , Zofran 4 mg NISHA NAGY MD November 18, 2019 19:34
--- NOTE | 2019-11-18 19:59 | Diagnostic Imaging Report ---
Exam: Left wrist Series. History: Left wrist pain after lifting something heavy one week ago Comparison: None. Findings: 3 views of the left wrist. There is markedly decreased bone mineralization, which limits evaluation of the bony structures.. Negative for acute, displaced fracture or dislocation. Well-corticated 7 mm fragment projecting distal to the distal ulna consistent with an old ulnar styloid fracture. Joint space narrowing and subchondral sclerosis first carpometacarpal joint. No lytic or blastic lesions. No soft tissue swelling. Impression: 1. Markedly decreased bone mineralization limits evaluation of the bony structures. No acute, displaced fracture or dislocation within the limitations of the study. 2. 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 3. Osteoarthritis changes in the first carpometacarpal joint Signed by: Dr. Mihir Solis M.D. on 11/18/2019 7:56 PM
[2019-11-18] MEDS ORDERED: IBUPROFEN400 MG PO (20:35)
[2019-11-18] MEDS ORDERED: ULTRACET TABLE1 EACH PO (20:35)
== END 2019-11-18 20:54 | disposition home or self-care (01) ==
LOC: FSED 19:05
DX: M25.532 Pain in left wrist (principal); M19.032 Primary osteoarthritis, left wrist; K21.9 Gastro-esophageal reflux disease without esophagitis; Z87.19 Personal history of other diseases of the digestive system; Z85.9 Personal history of malignant neoplasm, unspecified
CPT/HCPCS: 99283; Q0162

== ENCOUNTER 2020-07-08 16:49 | Emergency (ER) | payer OTHER ==
[~2020-07-08] VITALS: Ht 162.6 cm; Wt 77.1 kg
[~2020-07-08 16:49] MED LIST changes: +IBUPROFEN400 MG PO; +ULTRACET TABLE1 EACH PO
[2020-07-08] MEDS ORDERED: VITAMIN C500 MG (17:21)
[2020-07-08] MEDS ORDERED: DEXAMETHASONE 4 MG TAB PO STA (17:59)
[2020-07-08] MEDS ORDERED: ACETAMINOPHEN 325 MG TAB PO ONE (18:00)
[2020-07-08 22:05] VITALS: BP 169/67
== END 2020-07-08 21:38 | disposition home or self-care (01) ==
LOC: ER 17:04
DX: M25.552 Pain in left hip (principal); M79.662 Pain in left lower leg; Z88.8 Allergy status to other drugs, medicaments and biological substances; Z87.891 Personal history of nicotine dependence
CPT/HCPCS: 93971; 99284

== ENCOUNTER 2020-08-23 23:03 | Emergency (ER) | payer OTHER ==
[~2020-08-23] VITALS: Ht 162.6 cm; Wt 77.1 kg
[~2020-08-23 23:03] MED LIST changes: +VITAMIN C500 MG PO
[2020-08-23] MEDS ORDERED: SODIUM CHLORIDE 0.9% 1000ML 1,000 ML IV STA (23:07)
[2020-08-23 23:40] LABS: BASOPHILS % 0.3 % (0.0-1.0); EOSINOPHILS % 0.5 % (0.0-6.0); HEMATOCRIT 38.6 % (34.2-44.1); HEMOGLOBIN 12.6 g/dL (12.0-16.0); LYMPHOCYTES # (AUTO) 1.4 (1.0-3.2); LYMPHOCYTES % 23.4 % (18.0-39.1); MEAN CORPUSCULAR HEMOGLOBIN 29.6 pg (28-32); MEAN CORPUSCULAR HGB CONC 32.6 g/dL (31-35); MEAN CORPUSCULAR VOLUME 90.6 fL (81-99); MONOCYTES # (AUTO) 0.7 (0.2-0.8); MONOCYTES % 12.5 % (4.4-11.3); NEUTROPHILS # (AUTO) 3.6 (2.1-6.9); NEUTROPHILS % 62.6 % (38.7-80.0); PLATELET COUNT 213 x10e3/uL (140-360); RED BLOOD COUNT 4.26 x10e6/uL (3.6-5.1); RED CELL DISTRIBUTION WIDTH 12.8 % (11.7-14.4)
[2020-08-23] MEDS ORDERED: MORPHINE SULFATE INJ 2 MG/ML SYR IV STA (23:41)
[2020-08-23 23:46] LABS: BACTERIA,URINE FEW /HPF; CLARITY,URINE CLEAR (CLEAR); COLOR,URINE YELLOW (YELLOW); EPITHELIAL CELLS,URINE FEW /LPF; KETONES,URINE NEGATIVE (NEGATIVE); LEUKOCYTE ESTERASE ,URINE NEGATIVE (NEGATIVE); NITRITE,URINE NEGATIVE (NEGATIVE); PROTEIN,URINE DIPSTICK NEGATIVE (NEGATIVE); RBC,URINE 0-5 /HPF (0-5); URINE UROBILINOGEN 0.2 mg/dL (0.2 - 1); WBC,URINE (MAN) 0-5 /HPF (0-5)
[2020-08-24] LABS: ALANINE AMINOTRANSFERASE 26 IU/L (0-55); ALBUMIN 3.4 g/dL (3.5-5.0); ALBUMIN/GLOBULIN RATIO 0.8 (0.8-2.0); ANION GAP 14.3 mmol/L (8-16); BLOOD UREA NITROGEN 10 mg/dL (7-26); BUN/CREATININE RATIO 13 (6-25); CALCIUM 8.6 mg/dL (8.4-10.2); CARBON DIOXIDE 26 mmol/L (22-29); CHLORIDE 100 mmol/L (98-107); CREATINE KINASE 176 IU/L (29-168); CREATININE, SERUM 0.78 mg/dL (0.57-1.11); EST GLOMERULAR FILTRATION RATE > 60 ML/MIN (60-); GLUCOSE 115 mg/dL (74-118); POTASSIUM 4.3 mmol/L (3.5-5.1); SODIUM 136 mmol/L (136-145)
[2020-08-24 00:16] LABS: ALKALINE PHOSPHATASE 50 IU/L (40-150); LIPASE 22 U/L (8-78)
[2020-08-24] MEDS ORDERED: IOPAMIDOL 370 MG/ML 200 ML INFUS..BTL INJ ONE (00:27)
[2020-08-24] MEDS ORDERED: SODIUM CHLORIDE 0.9% 50ML 50 ML ONE (00:27)
[2020-08-24 02:21] VITALS: BP 111/64
[2020-08-24] MEDS ORDERED: VITAMIN D350 MCG PO (23:47)
[2020-08-24] MEDS ORDERED: VITAMIN B-12250 MCG PO (23:47)
[2020-08-25] MEDS ORDERED: ZYRTEC10 M3 PO (12:42)
[2020-08-25] MEDS ORDERED: ACETAMINOPHEN325 M1 PO (16:54)
[2020-08-25] MEDS ORDERED: ZINC SULFATE220 M1 PO (16:54)
[2020-08-25] MEDS ORDERED: Meclizine Hcl PO (16:54)
== END 2020-08-24 01:55 | disposition home or self-care (01) ==
LOC: ER 23:09
DX: U07.1 COVID-19 (principal); R19.7 Diarrhea, unspecified; M54.5 Low back pain; K21.9 Gastro-esophageal reflux disease without esophagitis; Z87.19 Personal history of other diseases of the digestive system
CPT/HCPCS: 36415; 71045; 74177; 80053; 81001; 82550; 82553; 83690; 83880; 84484; 85025; 93005; 99284; J2270; J7030; Q9967; U0002

== ENCOUNTER 2020-08-24 21:00 | Observation (INO) | payer OTHER ==
[~2020-08-24] VITALS: Ht 162.6 cm; Wt 77.1 kg
[2020-08-24] MEDS ORDERED: DEXAMETHASONE SOD PHOS 10 MG/1 ML VIAL IV STA (21:06)
[2020-08-24] MEDS ORDERED: AZITHROMYCIN 500MG/NS 250 ML 250 ML IV STA (21:06)
[2020-08-24] MEDS ORDERED: ACETAMINOPHEN 325 MG TAB PO STA (21:29)
[2020-08-24 21:45] LABS: BASOPHILS % 0.2 % (0.0-1.0); EOSINOPHILS % 0.4 % (0.0-6.0); HEMATOCRIT 33.5 % (34.2-44.1); HEMOGLOBIN 10.8 g/dL (12.0-16.0); LYMPHOCYTES # (AUTO) 1.2 (1.0-3.2); LYMPHOCYTES % 24.7 % (18.0-39.1); MEAN CORPUSCULAR HEMOGLOBIN 29.8 pg (28-32); MEAN CORPUSCULAR HGB CONC 32.2 g/dL (31-35); MEAN CORPUSCULAR VOLUME 92.3 fL (81-99); MONOCYTES # (AUTO) 0.7 (0.2-0.8); MONOCYTES % 13.7 % (4.4-11.3); NEUTROPHILS # (AUTO) 2.9 (2.1-6.9); NEUTROPHILS % 60.4 % (38.7-80.0); PLATELET COUNT 193 x10e3/uL (140-360); RED BLOOD COUNT 3.63 x10e6/uL (3.6-5.1); RED CELL DISTRIBUTION WIDTH 12.8 % (11.7-14.4)
[2020-08-24 22:00] LABS: CREATINE KINASE 91 IU/L (29-168)
[2020-08-24] MEDS ORDERED: ONDANSETRON HCL INJ 2MG/ML 2ML 2 MG/ML VIAL IV PRN (22:00)
[2020-08-24 22:02] LABS: ALANINE AMINOTRANSFERASE 18 IU/L (0-55); ALBUMIN/GLOBULIN RATIO 0.8 (0.8-2.0); ALKALINE PHOSPHATASE 42 IU/L (40-150); ANION GAP 11.2 mmol/L (8-16); BLOOD UREA NITROGEN 8 mg/dL (7-26); BUN/CREATININE RATIO 11 (6-25); CALCIUM 8.5 mg/dL (8.4-10.2); CARBON DIOXIDE 26 mmol/L (22-29); CHLORIDE 103 mmol/L (98-107); CREATININE, SERUM 0.76 mg/dL (0.57-1.11); EST GLOMERULAR FILTRATION RATE > 60 ML/MIN (60-); GLUCOSE 106 mg/dL (74-118); POTASSIUM 4.2 mmol/L (3.5-5.1); SODIUM 136 mmol/L (136-145)
[2020-08-24] MEDS ORDERED: ACETAMINOPHEN 325 MG TAB PO PRN (22:45)
[2020-08-24 23:00] VITALS: BP 120/62
[2020-08-24] MEDS ORDERED: VITAMIN B-12250 MCG PO (23:47)
[2020-08-24] MEDS ORDERED: VITAMIN D350 MCG PO (23:47)
[2020-08-24 23:50] VITALS: BP 120/62
[2020-08-24 23:54] VITALS: BP 120/62
[2020-08-25 03:38] VITALS: BP 147/76
[2020-08-25 05:07] LABS: BASOPHILS % 0.3 % (0.0-1.0); HEMOGLOBIN 11.7 g/dL (12.0-16.0); LYMPHOCYTES # (AUTO) 0.6 (1.0-3.2); MEAN CORPUSCULAR HEMOGLOBIN 30.2 pg (28-32); MEAN CORPUSCULAR HGB CONC 31.6 g/dL (31-35); MEAN CORPUSCULAR VOLUME 95.4 fL (81-99); MONOCYTES # (AUTO) 0.1 (0.2-0.8); MONOCYTES % 4.4 % (4.4-11.3); NEUTROPHILS # (AUTO) 2.4 (2.1-6.9); NEUTROPHILS % 76.4 % (38.7-80.0); PLATELET COUNT 154 x10e3/uL (140-360); RED BLOOD COUNT 3.88 x10e6/uL (3.6-5.1); RED CELL DISTRIBUTION WIDTH 12.8 % (11.7-14.4)
[2020-08-25 05:25] LABS: ALANINE AMINOTRANSFERASE 18 IU/L (0-55); ALBUMIN 2.9 g/dL (3.5-5.0); ALBUMIN/GLOBULIN RATIO 0.7 (0.8-2.0); ALKALINE PHOSPHATASE 43 IU/L (40-150); ANION GAP 13.6 mmol/L (8-16); BLOOD UREA NITROGEN 9 mg/dL (7-26); BUN/CREATININE RATIO 13 (6-25); CALCIUM 8.4 mg/dL (8.4-10.2); CARBON DIOXIDE 22 mmol/L (22-29); CHLORIDE 107 mmol/L (98-107); CREATININE, SERUM 0.69 mg/dL (0.57-1.11); EST GLOMERULAR FILTRATION RATE > 60 ML/MIN (60-); GLUCOSE 176 mg/dL (74-118); POTASSIUM 4.6 mmol/L (3.5-5.1); SODIUM 138 mmol/L (136-145)
[2020-08-25 05:52] LABS: CREATINE KINASE 69 IU/L (29-168)
[2020-08-25 08:03] VITALS: BP 147/76
[2020-08-25] MEDS ORDERED: HYDRALAZINE HCL 20 MG/ML VIAL IV PRN (10:00)
[2020-08-25] MEDS ORDERED: POLYETHYLENE GLYCOL 3350 17 GM PACK PO PRN (10:00)
[2020-08-25 10:22] VITALS: BP 142/69
[2020-08-25 11:53] LABS: CLARITY,URINE CLEAR (CLEAR); COLOR,URINE YELLOW (YELLOW); KETONES,URINE TRACE (NEGATIVE); LEUKOCYTE ESTERASE ,URINE NEGATIVE (NEGATIVE); NITRITE,URINE NEGATIVE (NEGATIVE); PROTEIN,URINE DIPSTICK NEGATIVE (NEGATIVE); URINE UROBILINOGEN 0.2 mg/dL (0.2 - 1)
[2020-08-25 12:23] LABS: BACTERIA,URINE FEW /HPF
[2020-08-25 12:24] LABS: EPITHELIAL CELLS,URINE FEW /LPF; RBC,URINE 0-5 /HPF (0-5); WBC,URINE (MAN) 0-5 /HPF (0-5)
[2020-08-25] MEDS ORDERED: ZYRTEC10 M3 PO (12:42)
[2020-08-25 12:56] VITALS: BP 140/59
[2020-08-25] MEDS ORDERED: MECLIZINE HCL 12.5 MG TAB PO PRN (13:15)
[2020-08-25] MEDS ORDERED: LORATADINE 10 MG TAB PO SCH (13:45)
[2020-08-25 14:55] LABS: CREATINE KINASE MB 1.3 ng/mL (0-5.0)
[2020-08-25] MEDS ORDERED: CEFTRIAXONE SOD 1 GM in SODIUM CHLORIDE 0.9% 50ML 50 ML IV SCH (15:00)
[2020-08-25] MEDS ORDERED: BAMLANIVIMAB 700 MG/20 ML VIAL IV ONE (15:30)
[2020-08-25] MEDS ORDERED: BAMLANIVIMAB 700 MG in SODIUM CHLORIDE 0.9% 250ML 250 ML IV ONE (16:30)
[2020-08-25] MEDS ORDERED: FAMOTIDINE 20 MG TAB PO SCH (16:30)
[2020-08-25 16:48] VITALS: BP 131/78
[2020-08-25] MEDS ORDERED: Meclizine Hcl PO (16:54)
[2020-08-25] MEDS ORDERED: ZINC SULFATE220 M1 PO (16:54)
[2020-08-25] MEDS ORDERED: ACETAMINOPHEN325 M1 PO (16:54)
[2020-08-25] MEDS ORDERED: ASCORBIC ACID 500 MG TAB PO SCH (17:00)
[2020-08-25] MEDS ORDERED: ZINC SULFATE 220 MG CAP PO SCH (17:00)
[2020-08-25] MEDS ORDERED: DOCUSATE SODIUM 100 MG CAP PO SCH (17:00)
[2020-08-25] MEDS ORDERED: ENOXAPARIN SOD INJ 40 MG/0.4 ML SYR SC SCH (17:00)
[2020-08-25 19:20] VITALS: BP 146/59
[2020-08-25] MEDS ORDERED: AZITHROMYCIN 500MG/NS 250 ML 250 ML IV SCH (21:00)
[2020-08-25] MEDS ORDERED: DEXAMETHASONE SOD PHOS INJ 4 MG/ML VIAL IV SCH (21:00)
[2020-08-25] MEDS ORDERED: TEMAZEPAM 15 MG CAP PO PRN (21:00)
[2020-08-26] MEDS ORDERED: LORATADINE 10 MG TAB PO SCH (09:00)
[2020-08-26] MEDS ORDERED: CHOLECALCIFEROL 400 UNIT TAB PO SCH (09:00)
== END 2020-08-25 19:23 | disposition home or self-care (01) ==
LOC: ER 21:08 → INTOOBSV 21:53 → ERHOLD 21:53 → IMCU 22:54
PROVIDERS: ADMIT Internal Medicine; ATTEND Internal Medicine
DX: U07.1 COVID-19 (principal); J12.82 Pneumonia due to coronavirus disease 2019; R09.02 Hypoxemia; I10 Essential (primary) hypertension; F41.9 Anxiety disorder, unspecified; K57.90 Diverticulosis of intestine, part unspecified, without perforation or abscess without bleeding; K21.9 Gastro-esophageal reflux disease without esophagitis; D64.9 Anemia, unspecified; Z82.49 Family history of ischemic heart disease and other diseases of the circulatory system
CPT/HCPCS: 36415; 71045; 80053; 81001; 82550; 82553; 83880; 84484; 85025; 93005; 99284; G0378; J0456; J0696; J1100; J1650; J2405; J7050

== ENCOUNTER 2020-11-19 19:22 | Emergency (ER) | payer OTHER ==
[~2020-11-19] VITALS: Ht 162.6 cm; Wt 77.1 kg
[~2020-11-19 19:22] MED LIST changes: +ACETAMINOPHEN325 M1 PO; +Meclizine Hcl PO; +VITAMIN B-12250 MCG PO; +VITAMIN D350 MCG PO; +ZINC SULFATE220 M1 PO; +ZYRTEC10 M3 PO
[2020-11-19 20:00] LABS: BASOPHILS # (AUTO) 0.1 (0.0-0.1); BASOPHILS % 0.4 % (0.0-1.0); EOSINOPHILS # (AUTO) 0.1 (0.0-0.4); EOSINOPHILS % 0.6 % (0.0-6.0); HEMATOCRIT 35.8 % (34.2-44.1); HEMOGLOBIN 11.7 g/dL (12.0-16.0); LYMPHOCYTES # (AUTO) 1.6 (1.0-3.2); LYMPHOCYTES % 11.9 % (18.0-39.1); MEAN CORPUSCULAR HEMOGLOBIN 30.4 pg (28-32); MEAN CORPUSCULAR HGB CONC 32.7 g/dL (31-35); MONOCYTES # (AUTO) 1.3 (0.2-0.8); MONOCYTES % 10.3 % (4.4-11.3); NEUTROPHILS % 76.2 % (38.7-80.0); PLATELET COUNT 286 x10e3/uL (140-360); RED BLOOD COUNT 3.85 x10e6/uL (3.6-5.1)
[2020-11-19] MEDS ORDERED: ACETAMINOPHEN 325 MG TAB PO ONE (20:00)
[2020-11-19] MEDS ORDERED: ACETAMINOPHEN 325 MG TAB ONE ×2 (20:04→20:05)
[2020-11-19 20:21] LABS: ALANINE AMINOTRANSFERASE 20 IU/L (0-55); ALBUMIN 3.1 g/dL (3.5-5.0); ALBUMIN/GLOBULIN RATIO 0.6 (0.8-2.0); ALKALINE PHOSPHATASE 95 IU/L (40-150); ANION GAP 14.3 mmol/L (8-16); BLOOD UREA NITROGEN 13 mg/dL (7-26); BUN/CREATININE RATIO 16 (6-25); CALCIUM 9.1 mg/dL (8.4-10.2); CARBON DIOXIDE 28 mmol/L (22-29); CHLORIDE 98 mmol/L (98-107); CREATININE, SERUM 0.81 mg/dL (0.57-1.11); EST GLOMERULAR FILTRATION RATE > 60 ML/MIN (60-); GLUCOSE 124 mg/dL (74-118); POTASSIUM 4.3 mmol/L (3.5-5.1); SODIUM 136 mmol/L (136-145)
[2020-11-19 21:18] LABS: CLARITY,URINE HAZY (CLEAR); COLOR,URINE YELLOW (YELLOW); KETONES,URINE TRACE (NEGATIVE); LEUKOCYTE ESTERASE ,URINE SMALL (NEGATIVE); NITRITE,URINE NEGATIVE (NEGATIVE); PROTEIN,URINE DIPSTICK 2+ (NEGATIVE); URINE UROBILINOGEN 1 mg/dL (0.2 - 1)
[2020-11-19 21:31] LABS: BACTERIA,URINE MODERATE /HPF; EPITHELIAL CELLS,URINE FEW /LPF; RBC,URINE 0-5 /HPF (0-5)
[2020-11-19] MEDS ORDERED: CEFTRIAXONE SOD 1 GM VIAL IV ONE (22:00)
[2020-11-19] MEDS ORDERED: CEFTRIAXONE SOD 1 GM VIAL IM ONE (22:00)
[2020-11-19] MEDS ORDERED: CEFTRIAXONE SOD 1 GM in SODIUM CHLORIDE 0.9% 50ML 50 ML IV ONE (22:15)
[2020-11-19 22:49] VITALS: BP 120/65
== END 2020-11-19 22:50 | disposition home or self-care (01) ==
LOC: ER 20:57
DX: R50.9 Fever, unspecified (principal); N39.0 Urinary tract infection, site not specified; C20 Malignant neoplasm of rectum; K21.9 Gastro-esophageal reflux disease without esophagitis
CPT/HCPCS: 36415; 71045; 80053; 81001; 85025; 87086; 99284; J0696

== ENCOUNTER 2020-11-22 10:49 | Emergency (ER) | payer OTHER ==
[~2020-11-22] VITALS: Ht 162.6 cm; Wt 77.1 kg
[2020-11-22 12:10] LABS: BASOPHILS # (AUTO) 0.1 (0.0-0.1); BASOPHILS % 0.4 % (0.0-1.0); EOSINOPHILS # (AUTO) 0.1 (0.0-0.4); EOSINOPHILS % 0.4 % (0.0-6.0); HEMATOCRIT 35.6 % (34.2-44.1); HEMOGLOBIN 11.4 g/dL (12.0-16.0); LYMPHOCYTES # (AUTO) 1.3 (1.0-3.2); LYMPHOCYTES % 9.4 % (18.0-39.1); MEAN CORPUSCULAR HEMOGLOBIN 30.1 pg (28-32); MEAN CORPUSCULAR VOLUME 93.9 fL (81-99); MONOCYTES # (AUTO) 1.3 (0.2-0.8); MONOCYTES % 9.4 % (4.4-11.3); NEUTROPHILS # (AUTO) 10.6 (2.1-6.9); NEUTROPHILS % 79.5 % (38.7-80.0); PLATELET COUNT 327 x10e3/uL (140-360); RED BLOOD COUNT 3.79 x10e6/uL (3.6-5.1); RED CELL DISTRIBUTION WIDTH 13.2 % (11.7-14.4)
[2020-11-22 12:19] LABS: INR 0.98; PARTIAL THROMBOPLASTIN TIME 28.6 seconds (23.8-35.5); PROTHROMBIN TIME 13.6 seconds (11.9-14.5)
[2020-11-22 12:23] LABS: ALANINE AMINOTRANSFERASE 24 IU/L (0-55); ALBUMIN 2.8 g/dL (3.5-5.0); ALBUMIN/GLOBULIN RATIO 0.5 (0.8-2.0); ALKALINE PHOSPHATASE 86 IU/L (40-150); ANION GAP 15.8 mmol/L (8-16); BLOOD UREA NITROGEN 9 mg/dL (7-26); BUN/CREATININE RATIO 11 (6-25); CARBON DIOXIDE 27 mmol/L (22-29); CHLORIDE 98 mmol/L (98-107); CREATINE KINASE 162 IU/L (29-168); CREATININE, SERUM 0.82 mg/dL (0.57-1.11); EST GLOMERULAR FILTRATION RATE > 60 ML/MIN (60-); GLUCOSE 123 mg/dL (74-118); POTASSIUM 3.8 mmol/L (3.5-5.1); SODIUM 137 mmol/L (136-145)
[2020-11-22 12:24] LABS: CLARITY,URINE CLEAR (CLEAR); COLOR,URINE YELLOW (YELLOW); KETONES,URINE NEGATIVE (NEGATIVE); LEUKOCYTE ESTERASE ,URINE SMALL (NEGATIVE); NITRITE,URINE NEGATIVE (NEGATIVE); PROTEIN,URINE DIPSTICK TRACE (NEGATIVE); URINE UROBILINOGEN 0.2 mg/dL (0.2 - 1)
[2020-11-22 12:27] LABS: BACTERIA,URINE RARE /HPF; EPITHELIAL CELLS,URINE FEW /LPF
[2020-11-22] MEDS ORDERED: ONDANSETRON HCL INJ 2MG/ML 2ML 2 MG/ML VIAL IV STA (13:25)
[2020-11-22] MEDS ORDERED: MORPHINE SULFATE INJ 4 MG/ML INJ 1ML IV ONE (13:30)
== END 2020-11-22 16:03 | disposition home or self-care (01) ==
LOC: ER 11:17
DX: K62.9 Disease of anus and rectum, unspecified (principal); K21.9 Gastro-esophageal reflux disease without esophagitis; Z85.89 Personal history of malignant neoplasm of other organs and systems; Z87.19 Personal history of other diseases of the digestive system
CPT/HCPCS: 36415; 71045; 80053; 81001; 82378; 82550; 82553; 83605; 83735; 84484; 85025; 85610; 85730; 87040; 93005; 99284; J2270; J2405; U0002

== ENCOUNTER 2021-01-25 08:39 | Emergency (ER) | payer OTHER ==
[~2021-01-25] VITALS: Ht 162.6 cm; Wt 72.6 kg
[2021-01-25] MEDS ORDERED: SODIUM CHLORIDE 0.9% 1000ML 1,000 ML IV STA (08:53)
[2021-01-25] MEDS ORDERED: METOCLOPRAMIDE HCL 10 MG/2ML VIAL IV ONE (09:00)
[2021-01-25 09:33] LABS: BASOPHILS # (AUTO) 0.1 (0.0-0.1); BASOPHILS % 0.9 % (0.0-1.0); EOSINOPHILS # (AUTO) 0.1 (0.0-0.4); EOSINOPHILS % 0.9 % (0.0-6.0); HEMATOCRIT 31.4 % (34.2-44.1); HEMOGLOBIN 10.2 g/dL (12.0-16.0); LYMPHOCYTES # (AUTO) 0.4 (1.0-3.2); LYMPHOCYTES % 6.3 % (18.0-39.1); MEAN CORPUSCULAR HEMOGLOBIN 29.5 pg (28-32); MEAN CORPUSCULAR HGB CONC 32.5 g/dL (31-35); MEAN CORPUSCULAR VOLUME 90.8 fL (81-99); MONOCYTES # (AUTO) 0.7 (0.2-0.8); MONOCYTES % 11.1 % (4.4-11.3); NEUTROPHILS # (AUTO) 5.2 (2.1-6.9); NEUTROPHILS % 79.6 % (38.7-80.0); PLATELET COUNT 214 x10e3/uL (140-360); RED BLOOD COUNT 3.46 x10e6/uL (3.6-5.1); RED CELL DISTRIBUTION WIDTH 13.2 % (11.7-14.4)
[2021-01-25 09:57] LABS: ALBUMIN 2.6 g/dL (3.5-5.0); ALBUMIN/GLOBULIN RATIO 0.5 (0.8-2.0); ANION GAP 13.7 mmol/L (8-16); CALCIUM 8.9 mg/dL (8.4-10.2); CREATININE, SERUM 0.88 mg/dL (0.57-1.11); POTASSIUM 3.7 mmol/L (3.5-5.1)
[2021-01-25] MEDS ORDERED: SODIUM CHLORIDE 0.9% 500ML 500 ML IV ONE (10:30)
[2021-01-25] MEDS ORDERED: REGLAN10 MG PO (10:35)
[2021-01-25] MEDS ORDERED: SODIUM CHLORIDE 0.9% 500ML 500 ML ONE (10:39)
== END 2021-01-25 11:04 | disposition home or self-care (01) ==
LOC: ER 08:50
DX: E86.0 Dehydration (principal); R11.10 Vomiting, unspecified; T45.1X5A Adverse effect of antineoplastic and immunosuppressive drugs, initial encounter; Z88.8 Allergy status to other drugs, medicaments and biological substances
CPT/HCPCS: 36415; 80053; 83690; 85025; 87045; 87493; 99284; J2765; J7030; J7040

== ENCOUNTER 2021-01-27 12:02 | Inpatient (IN) | payer OTHER ==
[~2021-01-27] VITALS: Ht 165.1 cm; Wt 70.3 kg
[~2021-01-27 12:02] MED LIST changes: +REGLAN10 MG PO
[2021-01-27 13:06] LABS: BASOPHILS # (AUTO) 0.1 (0.0-0.1); BASOPHILS % 1.3 % (0.0-1.0); HEMOGLOBIN 11.7 g/dL (12.0-16.0); LYMPHOCYTES # (AUTO) 0.2 (1.0-3.2); LYMPHOCYTES % 2.5 % (18.0-39.1); MEAN CORPUSCULAR HEMOGLOBIN 29.4 pg (28-32); MEAN CORPUSCULAR HGB CONC 32.5 g/dL (31-35); MEAN CORPUSCULAR VOLUME 90.5 fL (81-99); MONOCYTES # (AUTO) 0.2 (0.2-0.8); MONOCYTES % 2.8 % (4.4-11.3); NEUTROPHILS # (AUTO) 5.5 (2.1-6.9); NEUTROPHILS % 92.2 % (38.7-80.0); PLATELET COUNT 207 x10e3/uL (140-360); RED BLOOD COUNT 3.98 x10e6/uL (3.6-5.1); RED CELL DISTRIBUTION WIDTH 14.4 % (11.7-14.4)
[2021-01-27] MEDS ORDERED: SODIUM CHLORIDE 0.9% 50ML 50 ML ONE (13:15)
[2021-01-27] MEDS ORDERED: IOPAMIDOL 370 MG/ML 200 ML INFUS..BTL INJ ONE (13:16)
[2021-01-27 13:25] LABS: ALBUMIN 2.4 g/dL (3.5-5.0); ALBUMIN/GLOBULIN RATIO 0.5 (0.8-2.0); ANION GAP 14.9 mmol/L (8-16); CALCIUM 9.4 mg/dL (8.4-10.2); CREATININE, SERUM 0.75 mg/dL (0.57-1.11); POTASSIUM 3.9 mmol/L (3.5-5.1)
[2021-01-27] MEDS ORDERED: SODIUM CHLORIDE 0.9% 1000ML 1,000 ML IV SCH ×2 (13:30→14:45)
[2021-01-27] MEDS ORDERED: FENTANYL CITRATE/PF 100MCG/2 ML INJ IV ONE (13:30)
[2021-01-27] MEDS ORDERED: MORPHINE SULFATE INJ 2 MG/ML SYR IV PRN (15:00)
[2021-01-27] MEDS ORDERED: PIPERACILLIN/TAZO 4.5 GM 100 ML IV ONE (15:00)
[2021-01-27] MEDS: SODIUM CHLORIDE 0.9% 1000ML 1,000 ML IV SCH ×2 (15:12→23:30)
[2021-01-27] MEDS: ONDANSETRON HCL INJ 2MG/ML 2ML 2 MG/ML VIAL IV PRN ×2 (15:48→17:53)
[2021-01-27] MEDS ORDERED: Vancomycin IV 1 GM in SODIUM CHLORIDE 0.9% 250ML 250 ML IV ONE (16:00)
[2021-01-27 16:26] LABS: CLARITY,URINE SL CLOUDY (CLEAR); COLOR,URINE YELLOW (YELLOW); KETONES,URINE TRACE (NEGATIVE); LEUKOCYTE ESTERASE ,URINE NEGATIVE (NEGATIVE); NITRITE,URINE NEGATIVE (NEGATIVE); PROTEIN,URINE DIPSTICK TRACE (NEGATIVE); URINE UROBILINOGEN 1 mg/dL (0.2 - 1)
[2021-01-27 16:44] LABS: BAND NEUTROPHILS % (MANUAL) 1 %; HYPOCHROMASIA SLIGHT; MONOCYTES % (MANUAL) 2 % (3.4-9.0); NEUTROPHILS % (MANUAL) 97 % (40-74); PLATELET ESTIMATE ADEQUATE; PLATELET MORPHOLOGY COMMENT NORMAL; RBC MORPHOLOGY COMMENT NORMAL
[2021-01-27] MEDS: MORPHINE SULFATE INJ 4 MG/ML INJ 1ML IV PRN (17:53)
[2021-01-27 17:55] VITALS: BP 136/62
[2021-01-27 17:56] VITALS: BP 136/62
[2021-01-27] MEDS ORDERED: METOCLOPRAMIDE HCL 10 MG/2ML VIAL IV SCH (18:00)
[2021-01-27 18:20] VITALS: BP 136/62
[2021-01-27 20:00] VITALS: BP 139/60
[2021-01-27 20:34] VITALS: BP 139/60
[2021-01-27] MEDS: METRONIDAZOLE 500MG/NS 100ML 100 ML IV SCH (21:00)
[2021-01-27] MEDS: PIPERACILLIN/TAZOBACTAM 3.375 GM in SODIUM CHLORIDE 0.9% 50ML 50 ML IV SCH (22:00)
[2021-01-27] MEDS ORDERED: HYDRALAZINE HCL 20 MG/ML VIAL IV PRN (22:15)
[2021-01-27] MEDS ORDERED: METOPROLOL TARTRATE INJ 1 MG/ML VIAL IV PRN (22:15)
[2021-01-27] MEDS ORDERED: ACETAMINOPHEN 1000 MG/100 ML IV PRN (22:15)
[2021-01-27] MEDS: FAMOTIDINE 20 MG/2 ML VIAL IV SCH (22:59)
[2021-01-27 23:30] VITALS: BP 119/59
[2021-01-28] MEDS: PIPERACILLIN/TAZOBACTAM 3.375 GM in SODIUM CHLORIDE 0.9% 50ML 50 ML IV SCH ×4 (03:13→21:52)
[2021-01-28] MEDS: METRONIDAZOLE 500MG/NS 100ML 100 ML IV SCH ×3 (04:30→20:23)
[2021-01-28 04:47] LABS: BASOPHILS % 0.1 % (0.0-1.0); EOSINOPHILS % 0.1 % (0.0-6.0); HEMATOCRIT 33.6 % (34.2-44.1); HEMOGLOBIN 10.9 g/dL (12.0-16.0); LYMPHOCYTES # (AUTO) 0.3 (1.0-3.2); LYMPHOCYTES % 2.8 % (18.0-39.1); MEAN CORPUSCULAR HEMOGLOBIN 29.9 pg (28-32); MEAN CORPUSCULAR HGB CONC 32.4 g/dL (31-35); MEAN CORPUSCULAR VOLUME 92.1 fL (81-99); MONOCYTES # (AUTO) 0.2 (0.2-0.8); MONOCYTES % 2.5 % (4.4-11.3); NEUTROPHILS % 87.1 % (38.7-80.0); PLATELET COUNT 148 x10e3/uL (140-360); RED BLOOD COUNT 3.65 x10e6/uL (3.6-5.1); RED CELL DISTRIBUTION WIDTH 14.8 % (11.7-14.4)
[2021-01-28 05:20] LABS: ANION GAP 13.7 mmol/L (8-16); CALCIUM 8.4 mg/dL (8.4-10.2); CREATININE, SERUM 0.94 mg/dL (0.57-1.11); POTASSIUM 3.7 mmol/L (3.5-5.1)
[2021-01-28] MEDS: SODIUM CHLORIDE 0.9% 1000ML 1,000 ML IV SCH ×3 (05:34→16:56)
[2021-01-28 07:38] VITALS: BP 119/59
[2021-01-28] MEDS: FAMOTIDINE 20 MG/2 ML VIAL IV SCH ×2 (07:45→16:56)
[2021-01-28] MEDS: MORPHINE SULFATE INJ 4 MG/ML INJ 1ML IV PRN ×4 (07:45→20:27)
[2021-01-28] MEDS: ONDANSETRON HCL INJ 2MG/ML 2ML 2 MG/ML VIAL IV PRN ×2 (07:45→11:51)
[2021-01-28 07:52] VITALS: BP 119/59
[2021-01-28 09:58] LABS: BAND NEUTROPHILS % (MANUAL) 14 %; EOSINOPHILS % (MANUAL) 1 % (0-7); LYMPHOCYTES % (MANUAL) 1 % (19-48); METAMYELOCYTES % (MANUAL) 7 % (0-0); MONOCYTES % (MANUAL) 1 % (3.4-9.0); MYELOCYTES % (MANUAL) 1 % (0-0); NEUTROPHILS % (MANUAL) 74 % (40-74); PLATELET ESTIMATE SLIGHTLY DECREASED; PLATELET MORPHOLOGY COMMENT NORMAL; RBC MORPHOLOGY COMMENT NORMAL; TOXIC GRANULATION SLIGHT
[2021-01-28 11:39] VITALS: BP 113/55
[2021-01-28] MEDS ORDERED: OCTREOTIDE ACETATE 0.05 MG/ML AMP SQ ONE (15:45)
[2021-01-28 16:00] VITALS: BP 110/57
[2021-01-28] MEDS: METOCLOPRAMIDE HCL 10 MG/2ML VIAL IV PRN (16:56)
[2021-01-28] MEDS: ONDANSETRON HCL INJ 2MG/ML 2ML 2 MG/ML VIAL IV SCH ×3 (16:56→20:27)
[2021-01-28 20:00] VITALS: BP 104/52
[2021-01-28 21:00] VITALS: BP 104/52
[2021-01-29] MEDS: SODIUM CHLORIDE 0.9% 1000ML 1,000 ML IV SCH (00:11)
[2021-01-29 01:47] VITALS: BP 108/54
[2021-01-29] MEDS: ONDANSETRON HCL INJ 2MG/ML 2ML 2 MG/ML VIAL IV SCH ×4 (02:22→12:59)
[2021-01-29] MEDS: PIPERACILLIN/TAZOBACTAM 3.375 GM in SODIUM CHLORIDE 0.9% 50ML 50 ML IV SCH ×3 (03:00→21:26)
[2021-01-29] MEDS: METRONIDAZOLE 500MG/NS 100ML 100 ML IV SCH ×3 (04:00→20:29)
[2021-01-29 05:20] VITALS: BP 106/50
[2021-01-29 06:49] LABS: ANION GAP 8.4 mmol/L (8-16); CALCIUM 7.6 mg/dL (8.4-10.2); CREATININE, SERUM 0.68 mg/dL (0.57-1.11); POTASSIUM 3.4 mmol/L (3.5-5.1)
[2021-01-29 07:02] LABS: MAGNESIUM 1.6 MG/DL (1.3-2.1)
[2021-01-29 07:03] LABS: EOSINOPHILS % 0.1 % (0.0-6.0); HEMATOCRIT 28.3 % (34.2-44.1); LYMPHOCYTES # (AUTO) 0.1 (1.0-3.2); LYMPHOCYTES % 1.6 % (18.0-39.1); MEAN CORPUSCULAR HEMOGLOBIN 29.4 pg (28-32); MEAN CORPUSCULAR HGB CONC 31.4 g/dL (31-35); MEAN CORPUSCULAR VOLUME 93.4 fL (81-99); MONOCYTES # (AUTO) 0.2 (0.2-0.8); NEUTROPHILS # (AUTO) 7.9 (2.1-6.9); RED BLOOD COUNT 3.03 x10e6/uL (3.6-5.1)
[2021-01-29 07:07] LABS: HEMOGLOBIN 8.9 g/dL (12.0-16.0); PLATELET COUNT 93 x10e3/uL (140-360)
[2021-01-29 07:52] LABS: BAND NEUTROPHILS % (MANUAL) 5 %; LYMPHOCYTES % (MANUAL) 1 % (19-48); MONOCYTES % (MANUAL) 3 % (3.4-9.0); NEUTROPHILS % (MANUAL) 91 % (40-74)
[2021-01-29 07:53] LABS: HYPOCHROMASIA SLIGHT; PLATELET ESTIMATE MODERATELY DECREASED; PLATELET MORPHOLOGY COMMENT NORMAL; RBC MORPHOLOGY COMMENT NORMAL
[2021-01-29 07:58] LABS: TOXIC GRANULATION MODERATE
[2021-01-29 08:05] VITALS: BP 105/59
[2021-01-29] MEDS ORDERED: MAGNESIUM SULFATE 2GM/50ML 50 ML IV ONE (08:30)
[2021-01-29] MEDS: FAMOTIDINE 20 MG/2 ML VIAL IV SCH ×2 (08:50→17:16)
[2021-01-29] MEDS: SOD CHL 0.45%/POT CHL 20MEQ 1,000 ML IV SCH ×2 (08:50→20:28)
[2021-01-29 08:52] VITALS: BP 105/59
[2021-01-29] MEDS ORDERED: POTASSIUM PHOSPHATE 30 MM in SODIUM CHLORIDE 0.9% 250ML 250 ML IV ONE (10:30)
[2021-01-29 11:36] VITALS: BP 110/148
[2021-01-29 20:00] VITALS: BP 129/60
[2021-01-30] VITALS (7 sets, daily range): BP systolic 101–130; BP diastolic 57–65
[2021-01-30] MEDS: SOD CHL 0.45%/POT CHL 20MEQ 1,000 ML IV SCH (03:07)
[2021-01-30] MEDS: METRONIDAZOLE 500MG/NS 100ML 100 ML IV SCH ×3 (03:07→20:00)
[2021-01-30] MEDS: PIPERACILLIN/TAZOBACTAM 3.375 GM in SODIUM CHLORIDE 0.9% 50ML 50 ML IV SCH (05:00)
[2021-01-30 06:53] LABS: BASOPHILS % 0.4 % (0.0-1.0); EOSINOPHILS % 0.1 % (0.0-6.0); HEMATOCRIT 24.9 % (34.2-44.1); LYMPHOCYTES # (AUTO) 0.2 (1.0-3.2); LYMPHOCYTES % 2.5 % (18.0-39.1); MEAN CORPUSCULAR HEMOGLOBIN 29.7 pg (28-32); MEAN CORPUSCULAR HGB CONC 32.1 g/dL (31-35); MEAN CORPUSCULAR VOLUME 92.6 fL (81-99); MONOCYTES # (AUTO) 0.2 (0.2-0.8); MONOCYTES % 3.5 % (4.4-11.3); NEUTROPHILS # (AUTO) 6.3 (2.1-6.9); NEUTROPHILS % 92.5 % (38.7-80.0); PLATELET COUNT 69 x10e3/uL (140-360); RED BLOOD COUNT 2.69 x10e6/uL (3.6-5.1); RED CELL DISTRIBUTION WIDTH 15.5 % (11.7-14.4)
[2021-01-30 07:07] LABS: ANION GAP 11.3 mmol/L (8-16); CALCIUM 7.7 mg/dL (8.4-10.2); CREATININE, SERUM 0.63 mg/dL (0.57-1.11); POTASSIUM 3.3 mmol/L (3.5-5.1)
[2021-01-30 07:29] LABS: MAGNESIUM 1.8 MG/DL (1.3-2.1)
[2021-01-30 07:33] LABS: LYMPHOCYTES % (MANUAL) 5 % (19-48); MONOCYTES % (MANUAL) 4 % (3.4-9.0); NEUTROPHILS % (MANUAL) 91 % (40-74)
[2021-01-30 07:34] LABS: HYPOCHROMASIA SLIGHT; PLATELET ESTIMATE MODERATELY DECREASED; PLATELET MORPHOLOGY COMMENT NORMAL; TOXIC GRANULATION SLIGHT
[2021-01-30] MEDS: FAMOTIDINE 20 MG/2 ML VIAL IV SCH ×2 (09:30→17:33)
[2021-01-30] MEDS ORDERED: MAGNESIUM SULFATE 2GM/50ML IV ONE (12:30)
[2021-01-30] MEDS ORDERED: POTASSIUM PHOSPHATE 20 MM in SODIUM CHLORIDE 0.9% 250ML 250 ML IV SCH (13:00)
[2021-01-30] MEDS: CEFEPIME 1 GM in SODIUM CHLORIDE 0.9% 50ML 50 ML IV SCH (20:15)
[2021-01-31] VITALS (9 sets, daily range): BP systolic 110–141; BP diastolic 51–63
[2021-01-31] MEDS: SOD CHL 0.45%/POT CHL 20MEQ 1,000 ML IV SCH ×4 (00:30→22:26)
[2021-01-31] MEDS: METRONIDAZOLE 500MG/NS 100ML 100 ML IV SCH ×3 (04:00→20:00)
[2021-01-31] MEDS: CEFEPIME 1 GM in SODIUM CHLORIDE 0.9% 50ML 50 ML IV SCH ×3 (06:00→22:00)
[2021-01-31] MEDS: FAMOTIDINE 20 MG/2 ML VIAL IV SCH ×2 (08:27→17:25)
[2021-01-31] MEDS: METOCLOPRAMIDE HCL 10 MG/2ML VIAL IV PRN (08:43)
[2021-01-31] MEDS: MORPHINE SULFATE INJ 4 MG/ML INJ 1ML IV PRN (08:43)
[2021-01-31 09:15] LABS: ANION GAP 12.6 mmol/L (8-16); CALCIUM 7.4 mg/dL (8.4-10.2); CREATININE, SERUM 0.59 mg/dL (0.57-1.11); POTASSIUM 3.6 mmol/L (3.5-5.1)
[2021-01-31 09:39] LABS: MAGNESIUM 1.8 MG/DL (1.3-2.1); PHOSPHORUS 2.4 MG/DL (2.3-4.7)
[2021-01-31] MEDS ORDERED: BENZONATATE 100 MG CAP PO PRN (10:45)
[2021-01-31] MEDS ORDERED: MAGNESIUM SULFATE 2GM/50ML IV ONE (10:45)
[2021-01-31] MEDS ORDERED: ALBUTEROL/IPRATROPIUM 3 ML NEB NEB PRN (10:45)
[2021-01-31] MEDS ORDERED: MAGNESIUM SULFATE 2GM/50ML 50 ML IV ONE (11:00)
[2021-01-31] MEDS: CHOLESTYRAMINE 4 GM PACKET PO SCH (21:40)
[2021-02-01] VITALS (8 sets, daily range): BP systolic 104–129; BP diastolic 49–81
[2021-02-01] MEDS: METRONIDAZOLE 500MG/NS 100ML 100 ML IV SCH ×3 (04:00→19:24)
[2021-02-01] MEDS: CEFEPIME 1 GM in SODIUM CHLORIDE 0.9% 50ML 50 ML IV SCH ×3 (06:00→22:00)
[2021-02-01 06:14] LABS: BASOPHILS % 0.7 % (0.0-1.0); EOSINOPHILS % 1.4 % (0.0-6.0); HEMATOCRIT 26.8 % (34.2-44.1); HEMOGLOBIN 8.8 g/dL (12.0-16.0); LYMPHOCYTES # (AUTO) 0.3 (1.0-3.2); LYMPHOCYTES % 8.9 % (18.0-39.1); MEAN CORPUSCULAR HEMOGLOBIN 29.5 pg (28-32); MEAN CORPUSCULAR HGB CONC 32.8 g/dL (31-35); MEAN CORPUSCULAR VOLUME 89.9 fL (81-99); MONOCYTES # (AUTO) 0.3 (0.2-0.8); MONOCYTES % 8.9 % (4.4-11.3); NEUTROPHILS # (AUTO) 2.2 (2.1-6.9); RED BLOOD COUNT 2.98 x10e6/uL (3.6-5.1); RED CELL DISTRIBUTION WIDTH 15.1 % (11.7-14.4)
[2021-02-01] MEDS: DIPHENOXYLATE/ATROPINE TAB PO PRN ×2 (06:15→17:19)
[2021-02-01 06:41] LABS: ANION GAP 7.6 mmol/L (8-16); CALCIUM 7.3 mg/dL (8.4-10.2); CREATININE, SERUM 0.55 mg/dL (0.57-1.11); POTASSIUM 3.6 mmol/L (3.5-5.1)
[2021-02-01 06:47] LABS: PLATELET COUNT 33 x10e3/uL (140-360)
[2021-02-01 06:50] LABS: MAGNESIUM 1.6 MG/DL (1.3-2.1); PHOSPHORUS 2.2 MG/DL (2.3-4.7)
[2021-02-01 07:14] LABS: FERRITIN 281.45 ng/mL (4.63-204.00)
[2021-02-01] MEDS: CHOLESTYRAMINE 4 GM PACKET PO SCH ×3 (09:00→20:41)
[2021-02-01 09:22] LABS: BAND NEUTROPHILS % (MANUAL) 1 %; EOSINOPHILS % (MANUAL) 1 % (0-7); LYMPHOCYTES % (MANUAL) 4 % (19-48); MONOCYTES % (MANUAL) 8 % (3.4-9.0); NEUTROPHILS % (MANUAL) 86 % (40-74); PLATELET ESTIMATE MARKEDLY DECREASED; PLATELET MORPHOLOGY COMMENT NORMAL; RBC MORPHOLOGY COMMENT NORMAL; TOXIC GRANULATION MODERATE
[2021-02-01] MEDS: FAMOTIDINE 20 MG/2 ML VIAL IV SCH ×2 (09:27→17:19)
[2021-02-01] MEDS ORDERED: FUROSEMIDE INJ 10 MG/ML 2 ML VIAL IV ONE (09:30)
[2021-02-01] MEDS: ONDANSETRON HCL INJ 2MG/ML 2ML 2 MG/ML VIAL IV PRN (17:14)
[2021-02-01] MEDS: MAGNESIUM/ALUMINUM/SIMETHICONE 30 ML UDC PO PRN (21:50)
[2021-02-02] VITALS (8 sets, daily range): BP systolic 121–145; BP diastolic 64–83
[2021-02-02] MEDS: METRONIDAZOLE 500MG/NS 100ML 100 ML IV SCH ×3 (03:08→19:17)
[2021-02-02] MEDS: CEFEPIME 1 GM in SODIUM CHLORIDE 0.9% 50ML 50 ML IV SCH ×3 (05:13→22:00)
[2021-02-02 05:21] LABS: BASOPHILS % 0.7 % (0.0-1.0); HEMATOCRIT 30.7 % (34.2-44.1); LYMPHOCYTES # (AUTO) 0.5 (1.0-3.2); LYMPHOCYTES % 11.5 % (18.0-39.1); MEAN CORPUSCULAR HEMOGLOBIN 29.2 pg (28-32); MEAN CORPUSCULAR HGB CONC 32.6 g/dL (31-35); MEAN CORPUSCULAR VOLUME 89.8 fL (81-99); MONOCYTES # (AUTO) 0.4 (0.2-0.8); MONOCYTES % 10.3 % (4.4-11.3); NEUTROPHILS # (AUTO) 2.9 (2.1-6.9); NEUTROPHILS % 71.8 % (38.7-80.0); RED BLOOD COUNT 3.42 x10e6/uL (3.6-5.1); RED CELL DISTRIBUTION WIDTH 15.2 % (11.7-14.4)
[2021-02-02 05:31] LABS: PLATELET COUNT 34 x10e3/uL (140-360)
[2021-02-02 06:31] LABS: BAND NEUTROPHILS % (MANUAL) 1 %; LYMPHOCYTES % (MANUAL) 6 % (19-48); MONOCYTES % (MANUAL) 11 % (3.4-9.0); NEUTROPHILS % (MANUAL) 82 % (40-74); PLATELET ESTIMATE MARKEDLY DECREASED; PLATELET MORPHOLOGY COMMENT NORMAL
[2021-02-02 06:32] LABS: RBC MORPHOLOGY COMMENT NORMAL; TOXIC GRANULATION MODERATE
[2021-02-02] MEDS: FAMOTIDINE 20 MG/2 ML VIAL IV SCH ×2 (08:54→17:29)
[2021-02-02] MEDS: CHOLESTYRAMINE 4 GM PACKET PO SCH ×2 (09:00→13:00)
[2021-02-02] MEDS: MAGNESIUM/ALUMINUM/SIMETHICONE 30 ML UDC PO PRN ×2 (12:05→19:18)
[2021-02-02] MEDS: MORPHINE SULFATE INJ 4 MG/ML INJ 1ML IV PRN (14:20)
[2021-02-02] MEDS ORDERED: FUROSEMIDE INJ 10 MG/ML 2 ML VIAL IV ONE (19:30)
[2021-02-03] VITALS (7 sets, daily range): BP systolic 109–134; BP diastolic 59–80
[2021-02-03] MEDS: METRONIDAZOLE 500MG/NS 100ML 100 ML IV SCH ×3 (03:30→20:00)
[2021-02-03 05:02] LABS: BASOPHILS % 0.5 % (0.0-1.0); EOSINOPHILS # (AUTO) 0.1 (0.0-0.4); EOSINOPHILS % 1.7 % (0.0-6.0); HEMATOCRIT 29.9 % (34.2-44.1); HEMOGLOBIN 9.8 g/dL (12.0-16.0); LYMPHOCYTES # (AUTO) 0.4 (1.0-3.2); LYMPHOCYTES % 10.6 % (18.0-39.1); MEAN CORPUSCULAR HEMOGLOBIN 29.2 pg (28-32); MEAN CORPUSCULAR HGB CONC 32.8 g/dL (31-35); MONOCYTES # (AUTO) 0.5 (0.2-0.8); MONOCYTES % 11.5 % (4.4-11.3); NEUTROPHILS % 73.7 % (38.7-80.0); RED BLOOD COUNT 3.36 x10e6/uL (3.6-5.1); RED CELL DISTRIBUTION WIDTH 15.1 % (11.7-14.4)
[2021-02-03] MEDS: CEFEPIME 1 GM in SODIUM CHLORIDE 0.9% 50ML 50 ML IV SCH ×3 (05:22→22:00)
[2021-02-03 05:31] LABS: PLATELET COUNT 37 x10e3/uL (140-360)
[2021-02-03 05:43] LABS: ANION GAP 9.4 mmol/L (8-16); CALCIUM 7.3 mg/dL (8.4-10.2); CREATININE, SERUM 0.55 mg/dL (0.57-1.11); POTASSIUM 3.4 mmol/L (3.5-5.1)
[2021-02-03] MEDS: ONDANSETRON HCL INJ 2MG/ML 2ML 2 MG/ML VIAL IV PRN ×2 (06:40→17:01)
[2021-02-03] MEDS: DIPHENOXYLATE/ATROPINE TAB PO PRN (06:40)
[2021-02-03] MEDS: MORPHINE SULFATE INJ 4 MG/ML INJ 1ML IV PRN (06:40)
[2021-02-03 06:42] LABS: BAND NEUTROPHILS % (MANUAL) 2 %; EOSINOPHILS % (MANUAL) 1 % (0-7); LYMPHOCYTES % (MANUAL) 5 % (19-48); MONOCYTES % (MANUAL) 3 % (3.4-9.0); NEUTROPHILS % (MANUAL) 89 % (40-74); PLATELET ESTIMATE MARKEDLY DECREASED; PLATELET MORPHOLOGY COMMENT NORMAL; RBC MORPHOLOGY COMMENT NORMAL; TOXIC GRANULATION MODERATE
[2021-02-03] MEDS: FAMOTIDINE 20 MG/2 ML VIAL IV SCH ×2 (08:15→17:01)
[2021-02-03] MEDS: CHOLESTYRAMINE 4 GM PACKET PO SCH ×2 (10:00→17:01)
[2021-02-03] MEDS ORDERED: FUROSEMIDE INJ 10 MG/ML 2 ML VIAL IV ONE (10:00)
[2021-02-03] MEDS: KCL 20MEQ/.9 SOD CHL 1,000 ML IV SCH (12:50)
[2021-02-04] VITALS (8 sets, daily range): BP systolic 102–118; BP diastolic 44–63
[2021-02-04] MEDS: METRONIDAZOLE 500MG/NS 100ML 100 ML IV SCH ×3 (04:00→20:00)
[2021-02-04] MEDS: CEFEPIME 1 GM in SODIUM CHLORIDE 0.9% 50ML 50 ML IV SCH ×3 (06:00→22:00)
[2021-02-04 06:08] LABS: ANION GAP 9.8 mmol/L (8-16); CALCIUM 7.4 mg/dL (8.4-10.2); CREATININE, SERUM 0.54 mg/dL (0.57-1.11); POTASSIUM 3.8 mmol/L (3.5-5.1)
[2021-02-04 06:14] LABS: MAGNESIUM 1.6 MG/DL (1.3-2.1)
[2021-02-04] MEDS ORDERED: MAGNESIUM SULFATE 2GM/50ML IV ONE (08:00)
[2021-02-04] MEDS ORDERED: MAGNESIUM SULFATE 2GM/50ML 50 ML IV SCH (09:00)
[2021-02-04] MEDS: ONDANSETRON HCL INJ 2MG/ML 2ML 2 MG/ML VIAL IV PRN (09:06)
[2021-02-04] MEDS: KCL 20MEQ/.9 SOD CHL 1,000 ML IV SCH (09:06)
[2021-02-04] MEDS: CHOLESTYRAMINE 4 GM PACKET PO SCH ×2 (09:06→17:55)
[2021-02-04] MEDS: FAMOTIDINE 20 MG/2 ML VIAL IV SCH ×2 (09:06→17:00)
[2021-02-04] MEDS ORDERED: FUROSEMIDE INJ 10 MG/ML 2 ML VIAL IV ONE (09:15)
[2021-02-04] MEDS ORDERED: POTASSIUM PHOSPHATE 20 MM in SODIUM CHLORIDE 0.9% 250ML 250 ML IV ONE (11:00)
[2021-02-04] MEDS: MELATONIN 5 MG TABLET PO SCH (21:21)
[2021-02-05] VITALS (7 sets, daily range): BP systolic 101–116; BP diastolic 56–60
[2021-02-05] MEDS: KCL 20MEQ/.9 SOD CHL 1,000 ML IV SCH ×2 (02:00→21:54)
[2021-02-05] MEDS: METRONIDAZOLE 500MG/NS 100ML 100 ML IV SCH (04:00)
[2021-02-05 05:31] LABS: BASOPHILS % 0.4 % (0.0-1.0); EOSINOPHILS % 0.8 % (0.0-6.0); HEMATOCRIT 29.1 % (34.2-44.1); HEMOGLOBIN 9.4 g/dL (12.0-16.0); LYMPHOCYTES # (AUTO) 0.5 (1.0-3.2); MEAN CORPUSCULAR HEMOGLOBIN 29.4 pg (28-32); MEAN CORPUSCULAR HGB CONC 32.3 g/dL (31-35); MEAN CORPUSCULAR VOLUME 90.9 fL (81-99); MONOCYTES # (AUTO) 0.6 (0.2-0.8); MONOCYTES % 11.2 % (4.4-11.3); NEUTROPHILS # (AUTO) 3.8 (2.1-6.9); NEUTROPHILS % 76.6 % (38.7-80.0); RED CELL DISTRIBUTION WIDTH 15.3 % (11.7-14.4)
[2021-02-05 05:43] LABS: PLATELET COUNT 47 x10e3/uL (140-360)
[2021-02-05 05:51] LABS: ANION GAP 6.5 mmol/L (8-16); CALCIUM 7.2 mg/dL (8.4-10.2); CREATININE, SERUM 0.54 mg/dL (0.57-1.11); POTASSIUM 3.5 mmol/L (3.5-5.1)
[2021-02-05] MEDS: CEFEPIME 1 GM in SODIUM CHLORIDE 0.9% 50ML 50 ML IV SCH ×3 (06:00→21:20)
[2021-02-05 06:05] LABS: MAGNESIUM 1.6 MG/DL (1.3-2.1)
[2021-02-05] MEDS: ONDANSETRON HCL 4 MG ORAL DISINTEGRATING TAB PO PRN ×2 (07:37→12:20)
[2021-02-05] MEDS ORDERED: POTASSIUM PHOSPHATE 15 MM in SODIUM CHLORIDE 0.9% 250ML 250 ML IV ONE (08:00)
[2021-02-05] MEDS ORDERED: MAGNESIUM SULFATE 2GM/50ML 50 ML IV ONE ×2 (08:00→12:30)
[2021-02-05] MEDS: MAGNESIUM OXIDE 400 MG TAB PO SCH ×2 (08:38→16:57)
[2021-02-05] MEDS: FAMOTIDINE 20 MG/2 ML VIAL IV SCH (09:00)
[2021-02-05] MEDS: CHOLESTYRAMINE 4 GM PACKET PO SCH ×2 (09:45→16:57)
[2021-02-05] MEDS ORDERED: FAMOTIDINE 20 MG TAB PO SCH (13:00)
[2021-02-05] MEDS: FAMOTIDINE 20 MG TAB PO SCH (16:57)
[2021-02-05] MEDS: MELATONIN 5 MG TABLET PO SCH (21:00)
[2021-02-06] VITALS: BP 120/60
[2021-02-06 04:00] VITALS: BP 112/56
[2021-02-06] MEDS: CEFEPIME 1 GM in SODIUM CHLORIDE 0.9% 50ML 50 ML IV SCH ×2 (05:10→13:13)
[2021-02-06 07:27] VITALS: BP 112/56
[2021-02-06 07:57] VITALS: BP 113/63
[2021-02-06] MEDS: MAGNESIUM OXIDE 400 MG TAB PO SCH ×2 (08:44→17:32)
[2021-02-06] MEDS: FAMOTIDINE 20 MG TAB PO SCH ×2 (08:44→17:32)
[2021-02-06] MEDS: CHOLESTYRAMINE 4 GM PACKET PO SCH ×2 (09:51→17:32)
[2021-02-06 11:13] VITALS: BP 113/41
[2021-02-06 15:32] VITALS: BP 115/57
[2021-02-06] MEDS: KCL 20MEQ/.9 SOD CHL 1,000 ML IV SCH (17:33)
== END 2021-02-06 18:56 | disposition home or self-care (01) | DRG 871 ==
LOC: ER 12:37 → ERHOLD 14:55 → IMCU 17:21 → MED/SURG3 01-28 22:20
PROVIDERS: ADMIT Internal Medicine; ATTEND Internal Medicine
DX: A41.9 Sepsis, unspecified organism (principal); R65.21 Severe sepsis with septic shock; K63.1 Perforation of intestine (nontraumatic); K65.8 Other peritonitis; D61.810 Antineoplastic chemotherapy induced pancytopenia; K65.1 Peritoneal abscess; K52.0 Gastroenteritis and colitis due to radiation; K56.699 Other intestinal obstruction unspecified as to partial versus complete obstruction; C21.0 Malignant neoplasm of anus, unspecified; D62 Acute posthemorrhagic anemia; K21.9 Gastro-esophageal reflux disease without esophagitis; E86.0 Dehydration; Z20.822 Contact with and (suspected) exposure to COVID-19; K57.30 Diverticulosis of large intestine without perforation or abscess without bleeding; I10 Essential (primary) hypertension; Z86.16 Personal history of COVID-19; D64.81 Anemia due to antineoplastic chemotherapy; R53.81 Other malaise
CPT/HCPCS: 36415; 71045; 74018; 74177; 80048; 80053; 81001; 82607; 82728; 82746; 82948; 83540; 83605; 83690; 83735; 84100; 84466; 84484; 85025; 87040; 87493; 93005; 96361; 97139; 99251; 99284; J0692; J1940; J2270; J2354; J2405; J2543; J2765; J3010; J3370; J3475; J7030; J7050; Q0162; Q9967; U0002

== ENCOUNTER 2021-02-28 13:54 | Inpatient (IN) | payer OTHER ==
[~2021-02-28] VITALS: Ht 165.1 cm; Wt 70.3 kg
[2021-02-28] MEDS ORDERED: MEROPENEM 1 GM in SODIUM CHLORIDE 0.9% 100 ML 100 ML IV STA (14:37)
[2021-02-28] MEDS ORDERED: SODIUM CHLORIDE 0.9% 1000ML 1,000 ML IV STA (14:37)
[2021-02-28] MEDS ORDERED: ONDANSETRON HCL INJ 2MG/ML 2ML 2 MG/ML VIAL IV STA (14:37)
[2021-02-28] MEDS ORDERED: MORPHINE SULFATE INJ 2 MG/ML SYR IV STA (14:37)
[2021-02-28 15:03] LABS: BASOPHILS % 0.3 % (0.0-1.0); EOSINOPHILS % 1.2 % (0.0-6.0); HEMOGLOBIN 9.8 g/dL (12.0-16.0); LYMPHOCYTES # (AUTO) 0.5 (1.0-3.2); LYMPHOCYTES % 14.2 % (18.0-39.1); MEAN CORPUSCULAR HEMOGLOBIN 30.4 pg (28-32); MEAN CORPUSCULAR HGB CONC 31.6 g/dL (31-35); MEAN CORPUSCULAR VOLUME 96.3 fL (81-99); MONOCYTES # (AUTO) 0.6 (0.2-0.8); MONOCYTES % 17.7 % (4.4-11.3); NEUTROPHILS # (AUTO) 2.3 (2.1-6.9); NEUTROPHILS % 66.3 % (38.7-80.0); PLATELET COUNT 189 x10e3/uL (140-360); RED BLOOD COUNT 3.22 x10e6/uL (3.6-5.1); RED CELL DISTRIBUTION WIDTH 19.6 % (11.7-14.4)
[2021-02-28 15:21] LABS: ALBUMIN/GLOBULIN RATIO 0.7 (0.8-2.0); ANION GAP 15.8 mmol/L (8-16); CALCIUM 8.6 mg/dL (8.4-10.2); CREATININE, SERUM 0.75 mg/dL (0.57-1.11); MAGNESIUM 1.4 MG/DL (1.3-2.1); POTASSIUM 3.8 mmol/L (3.5-5.1)
[2021-02-28] MEDS ORDERED: MEROPENEM 1 GM in SODIUM CHLORIDE 0.9% 100 ML IV STA (15:23)
[2021-02-28 15:27] LABS: CREATINE KINASE MB 1.9 ng/mL (0-5.0)
[2021-02-28 15:58] LABS: INR 1.01; PARTIAL THROMBOPLASTIN TIME 28.5 seconds (23.8-35.5); PROTHROMBIN TIME 13.5 seconds (11.9-14.5)
[2021-02-28 16:32] LABS: CLARITY,URINE CLEAR (CLEAR); COLOR,URINE YELLOW (YELLOW); LEUKOCYTE ESTERASE ,URINE NEGATIVE (NEGATIVE); NITRITE,URINE NEGATIVE (NEGATIVE)
[2021-02-28 16:33] LABS: KETONES,URINE 2+ (NEGATIVE); PROTEIN,URINE DIPSTICK 1+ (NEGATIVE); URINE UROBILINOGEN 1 mg/dL (0.2 - 1)
[2021-02-28 16:35] LABS: BACTERIA,URINE MODERATE /HPF; EPITHELIAL CELLS,URINE FEW /LPF; MUCUS,URINE MODERATE (RARE); RBC,URINE 0-5 /HPF (0-5)
[2021-02-28] MEDS ORDERED: SODIUM CHLORIDE 0.9% 50ML 50 ML ONE (16:41)
[2021-02-28] MEDS ORDERED: IOPAMIDOL 370 MG/ML 200 ML INFUS..BTL INJ ONE (16:41)
[2021-02-28] MEDS ORDERED: METRONIDAZOLE 500MG/NS 100ML 100 ML IV SCH (18:00)
[2021-02-28] MEDS ORDERED: SODIUM CHLORIDE 0.9% 1000ML 1,000 ML IV SCH (18:00)
[2021-02-28] MEDS ORDERED: HYDROMORPHONE 1MG/1ML INJ IV PRN (18:00)
[2021-02-28] MEDS ORDERED: DEXTROSE 5%/LACTATED RINGERS 1,000 ML IV SCH (18:00)
[2021-02-28] MEDS: HYDROMORPHONE 1MG/1ML INJ IV PRN ×2 (18:38→21:36)
[2021-02-28] MEDS: SODIUM CHLORIDE 0.9% 1000ML 1,000 ML IV SCH (18:38)
[2021-02-28] MEDS ORDERED: ONDANSETRON HCL INJ 2MG/ML 2ML 2 MG/ML VIAL IV PRN (18:45)
[2021-02-28] MEDS: DICYCLOMINE HCL 20 MG/2 ML VIAL IM SCH (20:05)
[2021-03-01] MEDS: SODIUM CHLORIDE 0.9% 1000ML 1,000 ML IV SCH ×3 (02:38→22:38)
[2021-03-01] MEDS ORDERED: MEROPENEM 1 GM in SODIUM CHLORIDE 0.9% 100 ML 100 ML IV SCH (03:00)
[2021-03-01] MEDS ORDERED: MEROPENEM 1 GM VIAL ONE (04:28)
[2021-03-01] MEDS ORDERED: SODIUM CHLORIDE 0.9% 100 ML ONE (04:38)
[2021-03-01] MEDS: DICYCLOMINE HCL 20 MG/2 ML VIAL IM SCH ×3 (06:00→18:38)
[2021-03-01 06:15] LABS: BASOPHILS % 0.6 % (0.0-1.0); EOSINOPHILS % 0.6 % (0.0-6.0); HEMOGLOBIN 8.4 g/dL (12.0-16.0); LYMPHOCYTES # (AUTO) 0.3 (1.0-3.2); LYMPHOCYTES % 7.8 % (18.0-39.1); MEAN CORPUSCULAR HEMOGLOBIN 30.3 pg (28-32); MEAN CORPUSCULAR HGB CONC 31.1 g/dL (31-35); MEAN CORPUSCULAR VOLUME 97.5 fL (81-99); MONOCYTES # (AUTO) 0.7 (0.2-0.8); MONOCYTES % 19.3 % (4.4-11.3); NEUTROPHILS # (AUTO) 2.5 (2.1-6.9); NEUTROPHILS % 70.9 % (38.7-80.0); PLATELET COUNT 160 x10e3/uL (140-360); RED BLOOD COUNT 2.77 x10e6/uL (3.6-5.1); RED CELL DISTRIBUTION WIDTH 20.1 % (11.7-14.4)
[2021-03-01 07:04] LABS: ANION GAP 12.1 mmol/L (8-16); CALCIUM 7.8 mg/dL (8.4-10.2); CREATININE, SERUM 0.63 mg/dL (0.57-1.11); POTASSIUM 4.1 mmol/L (3.5-5.1)
[2021-03-01 07:29] LABS: MAGNESIUM 1.5 MG/DL (1.3-2.1); PHOSPHORUS 2.9 MG/DL (2.3-4.7)
[2021-03-01] MEDS: MEROPENEM 1 GM in SODIUM CHLORIDE 0.9% 100 ML IV SCH ×2 (07:42→19:15)
[2021-03-01 09:39] LABS: BAND NEUTROPHILS % (MANUAL) 5 %; LYMPHOCYTES % (MANUAL) 6 % (19-48); MONOCYTES % (MANUAL) 16 % (3.4-9.0); NEUTROPHILS % (MANUAL) 73 % (40-74)
[2021-03-01 09:40] LABS: ANISOCYTOSIS MODERATE; PLATELET ESTIMATE ADEQUATE; PLATELET MORPHOLOGY COMMENT NORMAL; RBC MORPHOLOGY COMMENT ABNORMAL
[2021-03-02] MEDS: DICYCLOMINE HCL 20 MG/2 ML VIAL IM SCH ×2 (06:00)
[2021-03-02 06:59] LABS: BASOPHILS % 0.6 % (0.0-1.0); EOSINOPHILS # (AUTO) 0.1 (0.0-0.4); EOSINOPHILS % 2.7 % (0.0-6.0); HEMATOCRIT 28.5 % (34.2-44.1); HEMOGLOBIN 8.8 g/dL (12.0-16.0); LYMPHOCYTES # (AUTO) 0.5 (1.0-3.2); LYMPHOCYTES % 14.2 % (18.0-39.1); MEAN CORPUSCULAR HEMOGLOBIN 30.2 pg (28-32); MEAN CORPUSCULAR HGB CONC 30.9 g/dL (31-35); MEAN CORPUSCULAR VOLUME 97.9 fL (81-99); MONOCYTES # (AUTO) 0.5 (0.2-0.8); MONOCYTES % 13.6 % (4.4-11.3); NEUTROPHILS # (AUTO) 2.3 (2.1-6.9); PLATELET COUNT 171 x10e3/uL (140-360); RED BLOOD COUNT 2.91 x10e6/uL (3.6-5.1); RED CELL DISTRIBUTION WIDTH 20.3 % (11.7-14.4)
[2021-03-02] MEDS: MEROPENEM 1 GM in SODIUM CHLORIDE 0.9% 100 ML IV SCH ×2 (07:15→19:15)
[2021-03-02 07:28] LABS: ANION GAP 14.3 mmol/L (8-16); CALCIUM 7.8 mg/dL (8.4-10.2); CREATININE, SERUM 0.56 mg/dL (0.57-1.11); POTASSIUM 3.3 mmol/L (3.5-5.1)
[2021-03-02] MEDS: SODIUM CHLORIDE 0.9% 1000ML 1,000 ML IV SCH (08:30)
[2021-03-02] MEDS: MIDODRINE 2.5 MG TAB PO SCH ×3 (09:30→16:00)
[2021-03-02] MEDS ORDERED: POTASSIUM CHLORIDE 10MEQ EA PO ONE (10:00)
[2021-03-02] MEDS ORDERED: MAGNESIUM SULFATE 2GM/50ML 50 ML IV ONE (10:00)
[2021-03-02] MEDS ORDERED: MECLIZINE HCL 12.5 MG TAB PO PRN (10:00)
[2021-03-02] MEDS: CHOLECALCIFEROL 1,000 UNIT TAB PO SCH (11:33)
[2021-03-02] MEDS ORDERED: POTASSIUM PHOSPHATE 15 MM in SODIUM CHLORIDE 0.9% 250ML 250 ML IV ONE (12:00)
[2021-03-02 14:48] VITALS: BP 134/68
[2021-03-02 16:51] VITALS: BP 114/91
[2021-03-02 16:59] VITALS: BP 114/91
[2021-03-02] MEDS: LACTOBACILLUS ACIDOPHILUS CAPSULE PO SCH (17:00)
[2021-03-02] MEDS: ZINC SULFATE 220 MG CAP PO SCH (17:00)
[2021-03-02] MEDS ORDERED: ACETAMINOPHEN 325 MG TAB PO PRN (17:30)
[2021-03-02] MEDS ORDERED: CHOLESTYRAMINE 4 GM PACKET PO PRN ×2 (17:30)
[2021-03-02] MEDS ORDERED: DIPHENOXYLATE/ATROPINE TAB PO PRN (18:00)
[2021-03-02] MEDS: CHOLESTYRAMINE 4 GM PACKET PO SCH (18:00)
[2021-03-02] MEDS: NYSTATIN 100,000 UNITS/GM CRM 30GM TUBE TOP SCH (18:30)
[2021-03-02 20:00] VITALS: BP 116/72
[2021-03-02] MEDS ORDERED: SODIUM CHLORIDE 0.9% 250ML 250 ML ONE (21:25)
[2021-03-02 22:02] VITALS: BP 116/72
[2021-03-03] VITALS (9 sets, daily range): BP systolic 105–119; BP diastolic 49–97
[2021-03-03] MEDS: CHOLESTYRAMINE 4 GM PACKET PO SCH ×7 (00:55→23:25)
[2021-03-03] MEDS: MEROPENEM 1 GM in SODIUM CHLORIDE 0.9% 100 ML IV SCH ×3 (00:56→06:14)
[2021-03-03 07:36] LABS: BASOPHILS % 0.4 % (0.0-1.0); EOSINOPHILS # (AUTO) 0.1 (0.0-0.4); EOSINOPHILS % 3.1 % (0.0-6.0); HEMATOCRIT 25.5 % (34.2-44.1); HEMOGLOBIN 8.3 g/dL (12.0-16.0); LYMPHOCYTES # (AUTO) 0.4 (1.0-3.2); LYMPHOCYTES % 15.2 % (18.0-39.1); MEAN CORPUSCULAR HEMOGLOBIN 30.6 pg (28-32); MEAN CORPUSCULAR HGB CONC 32.5 g/dL (31-35); MEAN CORPUSCULAR VOLUME 94.1 fL (81-99); MONOCYTES # (AUTO) 0.5 (0.2-0.8); MONOCYTES % 19.1 % (4.4-11.3); NEUTROPHILS # (AUTO) 1.6 (2.1-6.9); PLATELET COUNT 145 x10e3/uL (140-360); RED BLOOD COUNT 2.71 x10e6/uL (3.6-5.1); RED CELL DISTRIBUTION WIDTH 20.2 % (11.7-14.4)
[2021-03-03 07:53] LABS: ANION GAP 12.4 mmol/L (8-16); CALCIUM 7.9 mg/dL (8.4-10.2); CREATININE, SERUM 0.54 mg/dL (0.57-1.11); POTASSIUM 4.4 mmol/L (3.5-5.1)
[2021-03-03] MEDS: LACTOBACILLUS ACIDOPHILUS CAPSULE PO SCH ×2 (09:19→17:45)
[2021-03-03] MEDS: ASCORBIC ACID 500 MG TAB PO SCH (09:19)
[2021-03-03] MEDS: ZINC SULFATE 220 MG CAP PO SCH ×2 (09:19→17:45)
[2021-03-03] MEDS: MIDODRINE 2.5 MG TAB PO SCH ×3 (09:19→17:45)
[2021-03-03] MEDS: LORATADINE 10 MG TAB PO SCH (09:19)
[2021-03-03] MEDS: CHOLECALCIFEROL 1,000 UNIT TAB PO SCH (09:19)
[2021-03-03] MEDS: NYSTATIN 100,000 UNITS/GM CRM 30GM TUBE TOP SCH ×2 (09:20→17:00)
[2021-03-03] MEDS ORDERED: CEFTRIAXONE 1 GM in SODIUM CHLORIDE 0.9% 50ML 50 ML IV SCH (18:00)
[2021-03-04 00:26] VITALS: BP 100/47
[2021-03-04 05:11] VITALS: BP 121/75
[2021-03-04] MEDS: CHOLESTYRAMINE 4 GM PACKET PO SCH ×2 (05:36)
[2021-03-04 06:23] LABS: BASOPHILS % 0.7 % (0.0-1.0); EOSINOPHILS # (AUTO) 0.1 (0.0-0.4); EOSINOPHILS % 3.4 % (0.0-6.0); HEMATOCRIT 26.7 % (34.2-44.1); HEMOGLOBIN 8.7 g/dL (12.0-16.0); LYMPHOCYTES # (AUTO) 0.5 (1.0-3.2); LYMPHOCYTES % 18.3 % (18.0-39.1); MEAN CORPUSCULAR HEMOGLOBIN 30.6 pg (28-32); MEAN CORPUSCULAR HGB CONC 32.6 g/dL (31-35); MONOCYTES # (AUTO) 0.6 (0.2-0.8); MONOCYTES % 23.9 % (4.4-11.3); NEUTROPHILS # (AUTO) 1.4 (2.1-6.9); NEUTROPHILS % 51.5 % (38.7-80.0); PLATELET COUNT 168 x10e3/uL (140-360); RED BLOOD COUNT 2.84 x10e6/uL (3.6-5.1); RED CELL DISTRIBUTION WIDTH 20.3 % (11.7-14.4)
[2021-03-04 07:14] LABS: ANION GAP 11.5 mmol/L (8-16); BLOOD UREA NITROGEN < 5 mg/dL (7-26); CARBON DIOXIDE 21 mmol/L (22-29); CHLORIDE 108 mmol/L (98-107); CREATININE, SERUM 0.61 mg/dL (0.57-1.11); EST GLOMERULAR FILTRATION RATE 94 ML/MIN (60-); GLUCOSE 100 mg/dL (74-118); MAGNESIUM 1.6 MG/DL (1.3-2.1); PHOSPHORUS 2.4 MG/DL (2.3-4.7); POTASSIUM 4.5 mmol/L (3.5-5.1); SODIUM 136 mmol/L (136-145)
[2021-03-04 07:19] LABS: THYROID STIMULATING HORMONE 4.024 uIU/mL (0.350-4.940)
[2021-03-04 07:27] LABS: BUN/CREATININE RATIO 8 (6-25)
[2021-03-04 08:01] VITALS: BP 100/61
[2021-03-04 08:32] VITALS: BP 100/61
[2021-03-04] MEDS: CHOLECALCIFEROL 1,000 UNIT TAB PO SCH (08:50)
[2021-03-04] MEDS: ASCORBIC ACID 500 MG TAB PO SCH (08:50)
[2021-03-04] MEDS: MIDODRINE 2.5 MG TAB PO SCH (08:50)
[2021-03-04] MEDS: ZINC SULFATE 220 MG CAP PO SCH (08:50)
[2021-03-04] MEDS: LORATADINE 10 MG TAB PO SCH (08:50)
[2021-03-04] MEDS: LACTOBACILLUS ACIDOPHILUS CAPSULE PO SCH (08:50)
[2021-03-04] MEDS: NYSTATIN 100,000 UNITS/GM CRM 30GM TUBE TOP SCH (09:00)
[2021-03-04 10:24] LABS: EOSINOPHILS % (MANUAL) 5 % (0-7); LYMPHOCYTES % (MANUAL) 17 % (19-48); MONOCYTES % (MANUAL) 24 % (3.4-9.0); MYELOCYTES % (MANUAL) 2 % (0-0); NEUTROPHILS % (MANUAL) 50 % (40-74); PROMYELOCYTES % (MANUAL) 1 % (0-0)
[2021-03-04 10:25] LABS: PLATELET ESTIMATE ADEQUATE; PLATELET MORPHOLOGY COMMENT NORMAL; RBC MORPHOLOGY COMMENT NORMAL
[2021-03-04 11:27] VITALS: BP 111/59
== END 2021-03-04 11:37 | disposition home or self-care (01) | DRG 394 ==
LOC: ER 14:05 → ERHOLD 18:35 → MED/SURG2 03-02 14:45
PROVIDERS: ADMIT Internal Medicine; ATTEND Internal Medicine
DX: K52.0 Gastroenteritis and colitis due to radiation (principal); N39.0 Urinary tract infection, site not specified; C21.8 Malignant neoplasm of overlapping sites of rectum, anus and anal canal; D64.9 Anemia, unspecified; E86.0 Dehydration; E87.8 Other disorders of electrolyte and fluid balance, not elsewhere classified; Z86.16 Personal history of COVID-19; K57.90 Diverticulosis of intestine, part unspecified, without perforation or abscess without bleeding; Z87.891 Personal history of nicotine dependence; D70.1 Agranulocytosis secondary to cancer chemotherapy; Z20.822 Contact with and (suspected) exposure to COVID-19
CPT/HCPCS: 36415; 71045; 74177; 80048; 80053; 81001; 82150; 82550; 82553; 82607; 82746; 83540; 83605; 83690; 83735; 84100; 84443; 84466; 84484; 85025; 85610; 85730; 87040; 87086; 87186; 87493; 93005; 97139; 99251; 99285; J0500; J0696; J1170; J2185; J2270; J2405; J3475; J7030; J7050; Q9967; U0002

== ENCOUNTER 2021-04-30 09:39 | Inpatient (IN) | payer OTHER ==
[~2021-04-30] VITALS: Ht 165.1 cm; Wt 72.6 kg
[2021-04-30] MEDS ORDERED: SODIUM CHLORIDE 0.9% 1000ML 1,000 ML IV STA ×2 (10:16→11:32)
[2021-04-30] MEDS ORDERED: ONDANSETRON HCL INJ 2MG/ML 2ML 2 MG/ML VIAL IV NR (10:30)
[2021-04-30] MEDS ORDERED: Morphine 2mg Syringe 2 MG/ML SYR IV NR (10:30)
[2021-04-30 10:59] LABS: BASOPHILS % 0.3 % (0.0-1.0); EOSINOPHILS % 0.3 % (0.0-6.0); HEMATOCRIT 37.5 % (34.2-44.1); LYMPHOCYTES # (AUTO) 0.3 (1.0-3.2); LYMPHOCYTES % 7.3 % (18.0-39.1); MEAN CORPUSCULAR VOLUME 106.2 fL (81-99); MONOCYTES # (AUTO) 0.4 (0.2-0.8); MONOCYTES % 10.8 % (4.4-11.3); NEUTROPHILS # (AUTO) 2.8 (2.1-6.9); PLATELET COUNT 158 x10e3/uL (140-360); RED BLOOD COUNT 3.53 x10e6/uL (3.6-5.1); RED CELL DISTRIBUTION WIDTH 13.5 % (11.7-14.4)
[2021-04-30 11:14] LABS: ALBUMIN 3.2 g/dL (3.5-5.0); ALBUMIN/GLOBULIN RATIO 0.7 (0.8-2.0); ANION GAP 17.1 mmol/L (8-16); CALCIUM 8.6 mg/dL (8.4-10.2); CREATININE, SERUM 0.75 mg/dL (0.57-1.11); MAGNESIUM 1.5 MG/DL (1.3-2.1); POTASSIUM 4.1 mmol/L (3.5-5.1)
[2021-04-30 11:21] LABS: CREATINE KINASE MB 1.3 ng/mL (0-5.0)
[2021-04-30 11:31] LABS: CLARITY,URINE CLEAR (CLEAR); COLOR,URINE YELLOW (YELLOW)
[2021-04-30 11:32] LABS: KETONES,URINE 1+ (NEGATIVE); LEUKOCYTE ESTERASE ,URINE NEGATIVE (NEGATIVE); NITRITE,URINE NEGATIVE (NEGATIVE); PROTEIN,URINE DIPSTICK 2+ (NEGATIVE); URINE UROBILINOGEN 0.2 mg/dL (0.2 - 1)
[2021-04-30] MEDS ORDERED: SODIUM CHLORIDE 0.9% 50ML 50 ML ONE (11:39)
[2021-04-30] MEDS ORDERED: IOPAMIDOL 370 MG/ML 200 ML INFUS..BTL INJ ONE (11:39)
[2021-04-30 11:46] LABS: BACTERIA,URINE FEW /HPF; CALCIUM OXALATE CRYSTALS,UR MANY (FEW); EPITHELIAL CELLS,URINE FEW /LPF; RBC,URINE 0-5 /HPF (0-5)
[2021-04-30] MEDS ORDERED: SODIUM CHLORIDE 0.9% 1000ML 1,000 ML ONE (11:50)
[2021-04-30] MEDS ORDERED: METRONIDAZOLE 500MG/NS 100ML 100 ML IV SCH (12:00)
[2021-04-30] MEDS ORDERED: PIPERACILLIN/TAZOBACTAM 3.375 GM in SODIUM CHLORIDE 0.9% 50ML 50 ML IV SCH (12:00)
[2021-04-30 12:14] LABS: OCCULT BLOOD STOOL NEGATIVE (NEGATIVE)
[2021-04-30] MEDS: SODIUM CHLORIDE 0.9% 1000ML 1,000 ML IV SCH ×2 (13:10→19:13)
[2021-04-30] MEDS ORDERED: Morphine 2mg Syringe 2 MG/ML SYR IV PRN (13:15)
[2021-04-30] MEDS ORDERED: ONDANSETRON HCL INJ 2MG/ML 2ML 2 MG/ML VIAL IV PRN (13:15)
[2021-04-30] MEDS ORDERED: DICYCLOMINE HCL 20 MG TAB PO PRN (13:15)
[2021-04-30 14:54] LABS: C DIFFICILE TOXIN A&B AMP PROB **POSITIVE** (NEGATIVE)
[2021-04-30 15:00] VITALS: BP 112/63
[2021-04-30] MEDS ORDERED: ONE DAILY FOR1 EAC3 PO (16:18)
[2021-04-30] MEDS: VANCOMYCIN HCL 125 MG CAPSULE PO SCH ×2 (17:59→23:11)
[2021-04-30 19:50] VITALS: BP 114/62
[2021-04-30 20:01] VITALS: BP 114/62
[2021-05-01] VITALS (7 sets, daily range): BP systolic 102–130; BP diastolic 43–70
[2021-05-01] MEDS: SODIUM CHLORIDE 0.9% 1000ML 1,000 ML IV SCH ×3 (01:36→20:08)
[2021-05-01] MEDS: VANCOMYCIN HCL 125 MG CAPSULE PO SCH ×4 (05:21→23:26)
[2021-05-01 05:22] LABS: BASOPHILS % 0.5 % (0.0-1.0); EOSINOPHILS # (AUTO) 0.1 (0.0-0.4); EOSINOPHILS % 2.4 % (0.0-6.0); HEMATOCRIT 29.6 % (34.2-44.1); HEMOGLOBIN 9.3 g/dL (12.0-16.0); LYMPHOCYTES # (AUTO) 0.4 (1.0-3.2); LYMPHOCYTES % 17.5 % (18.0-39.1); MEAN CORPUSCULAR HEMOGLOBIN 33.2 pg (28-32); MEAN CORPUSCULAR HGB CONC 31.4 g/dL (31-35); MEAN CORPUSCULAR VOLUME 105.7 fL (81-99); MONOCYTES # (AUTO) 0.4 (0.2-0.8); MONOCYTES % 17.5 % (4.4-11.3); NEUTROPHILS # (AUTO) 1.3 (2.1-6.9); NEUTROPHILS % 61.6 % (38.7-80.0); PLATELET COUNT 119 x10e3/uL (140-360); RED CELL DISTRIBUTION WIDTH 13.4 % (11.7-14.4)
[2021-05-01 05:44] LABS: ALBUMIN 2.3 g/dL (3.5-5.0); ALBUMIN/GLOBULIN RATIO 0.7 (0.8-2.0); ANION GAP 12.3 mmol/L (8-16); CALCIUM 7.3 mg/dL (8.4-10.2); CREATININE, SERUM 0.62 mg/dL (0.57-1.11); POTASSIUM 3.3 mmol/L (3.5-5.1)
[2021-05-01] MEDS ORDERED: ACETAMINOPHEN 325 MG TAB PO PRN (11:00)
[2021-05-01] MEDS ORDERED: ONDANSETRON HCL 4 MG ORAL DISINTEGRATING TAB SL PRN (11:00)
[2021-05-01] MEDS: LACTOBACILLUS ACIDOPHILUS CAPSULE PO SCH ×3 (11:00→20:08)
[2021-05-01] MEDS ORDERED: ACYCLOVIR 200 MG CAP PO PRN (11:00)
[2021-05-02] VITALS (9 sets, daily range): BP systolic 108–157; BP diastolic 52–79
[2021-05-02] MEDS: VANCOMYCIN HCL 125 MG CAPSULE PO SCH ×3 (06:03→17:08)
[2021-05-02] MEDS: SODIUM CHLORIDE 0.9% 1000ML 1,000 ML IV SCH (06:50)
[2021-05-02 07:12] LABS: EOSINOPHILS # (AUTO) 0.1 (0.0-0.4); EOSINOPHILS % 2.9 % (0.0-6.0); HEMATOCRIT 27.6 % (34.2-44.1); HEMOGLOBIN 9.2 g/dL (12.0-16.0); LYMPHOCYTES # (AUTO) 0.3 (1.0-3.2); LYMPHOCYTES % 15.6 % (18.0-39.1); MEAN CORPUSCULAR HEMOGLOBIN 34.5 pg (28-32); MEAN CORPUSCULAR HGB CONC 33.3 g/dL (31-35); MEAN CORPUSCULAR VOLUME 103.4 fL (81-99); MONOCYTES # (AUTO) 0.4 (0.2-0.8); NEUTROPHILS # (AUTO) 1.2 (2.1-6.9); PLATELET COUNT 107 x10e3/uL (140-360); RED BLOOD COUNT 2.67 x10e6/uL (3.6-5.1); RED CELL DISTRIBUTION WIDTH 13.4 % (11.7-14.4)
[2021-05-02 07:25] LABS: ANION GAP 9.3 mmol/L (8-16); CALCIUM 7.6 mg/dL (8.4-10.2); CREATININE, SERUM 0.61 mg/dL (0.57-1.11); POTASSIUM 3.3 mmol/L (3.5-5.1)
[2021-05-02] MEDS: LACTOBACILLUS ACIDOPHILUS CAPSULE PO SCH ×3 (09:00→20:29)
[2021-05-02] MEDS: [UNRECOGNIZED DRUG - MIXTURE] PO SCH (09:00)
[2021-05-02] MEDS: LORATADINE 10 MG TAB PO SCH (11:18)
[2021-05-02] MEDS ORDERED: POTASSIUM CHLORIDE 20 MEQ TAB CR PO NR (17:08)
[2021-05-02] MEDS ORDERED: CALCIUM CARBONATE 500 MG CHEWABLE TABS PO NR (17:15)
[2021-05-02] MEDS ORDERED: CALCIUM CARBONATE 500 MG CHEWABLE TABS ONE (17:31)
[2021-05-03] VITALS (8 sets, daily range): BP systolic 119–144; BP diastolic 59–83
[2021-05-03] MEDS: VANCOMYCIN HCL 125 MG CAPSULE PO SCH ×4 (00:48→18:34)
[2021-05-03] MEDS: [UNRECOGNIZED DRUG - MIXTURE] PO SCH (08:13)
[2021-05-03] MEDS: LORATADINE 10 MG TAB PO SCH (08:13)
[2021-05-03] MEDS: LACTOBACILLUS ACIDOPHILUS CAPSULE PO SCH ×3 (08:13→20:11)
[2021-05-03] MEDS ORDERED: ONDANSETRON HCL 4 MG ORAL DISINTEGRATING TAB PO PRN (08:45)
[2021-05-03] MEDS: CHOLESTYRAMINE 4 GM PACKET PO SCH (17:00)
[2021-05-03] MEDS ORDERED: LOPERAMIDE HCL 2 MG CAP PO PRN (19:30)
[2021-05-04] VITALS: BP 116/60
[2021-05-04] MEDS: VANCOMYCIN HCL 125 MG CAPSULE PO SCH ×3 (00:30→12:04)
[2021-05-04 04:00] VITALS: BP 135/73
[2021-05-04 05:31] LABS: BASOPHILS % 0.5 % (0.0-1.0); HEMOGLOBIN 9.3 g/dL (12.0-16.0); LYMPHOCYTES # (AUTO) 0.5 (1.0-3.2); LYMPHOCYTES % 22.5 % (18.0-39.1); MEAN CORPUSCULAR HEMOGLOBIN 33.7 pg (28-32); MEAN CORPUSCULAR HGB CONC 33.2 g/dL (31-35); MEAN CORPUSCULAR VOLUME 101.4 fL (81-99); MONOCYTES # (AUTO) 0.4 (0.2-0.8); MONOCYTES % 20.6 % (4.4-11.3); NEUTROPHILS # (AUTO) 1.1 (2.1-6.9); NEUTROPHILS % 53.9 % (38.7-80.0); PLATELET COUNT 123 x10e3/uL (140-360); RED BLOOD COUNT 2.76 x10e6/uL (3.6-5.1)
[2021-05-04 05:58] LABS: PHOSPHORUS 3.6 MG/DL (2.3-4.7)
[2021-05-04 06:07] LABS: ANION GAP 9.3 mmol/L (8-16); CREATININE, SERUM 0.66 mg/dL (0.57-1.11); POTASSIUM 3.3 mmol/L (3.5-5.1)
[2021-05-04 06:49] LABS: MAGNESIUM 1.5 MG/DL (1.3-2.1)
[2021-05-04 07:28] VITALS: BP 113/58
[2021-05-04] MEDS: [UNRECOGNIZED DRUG - MIXTURE] PO SCH (09:00)
[2021-05-04] MEDS: CHOLESTYRAMINE 4 GM PACKET PO SCH (09:37)
[2021-05-04] MEDS: LACTOBACILLUS ACIDOPHILUS CAPSULE PO SCH (09:37)
[2021-05-04] MEDS: LORATADINE 10 MG TAB PO SCH (09:38)
[2021-05-04 10:05] VITALS: BP 113/58
[2021-05-04] MEDS ORDERED: POTASSIUM CHLORIDE 10MEQ EA PO ONE (11:00)
[2021-05-04 11:25] VITALS: BP 135/72
== END 2021-05-04 13:04 | disposition home or self-care (01) | DRG 871 ==
LOC: ER 09:43 → ERHOLD 13:09 → MED/SURG2 14:21
PROVIDERS: ADMIT Internal Medicine; ATTEND Internal Medicine
DX: A41.9 Sepsis, unspecified organism (principal); D61.810 Antineoplastic chemotherapy induced pancytopenia; A04.72 Enterocolitis due to Clostridium difficile, not specified as recurrent; K52.0 Gastroenteritis and colitis due to radiation; C20 Malignant neoplasm of rectum; E86.0 Dehydration; E87.6 Hypokalemia; Y84.2 Radiological procedure and radiotherapy as the cause of abnormal reaction of the patient, or of later complication, without mention of misadventure at the time of the procedure; Y82.8 Other medical devices associated with adverse incidents; Z20.822 Contact with and (suspected) exposure to COVID-19; T45.1X5A Adverse effect of antineoplastic and immunosuppressive drugs, initial encounter
CPT/HCPCS: 36415; 74177; 80048; 80053; 81001; 82270; 82550; 82553; 83605; 83690; 83735; 84100; 84484; 85025; 87040; 87086; 87493; 99284; J2270; J2405; J2543; J7030; Q9967; U0002

== ENCOUNTER 2021-06-18 16:22 | Emergency (ER) | payer OTHER ==
[~2021-06-18] VITALS: Ht 162.6 cm; Wt 66.7 kg
[~2021-06-18 16:22] MED LIST changes: +ONE DAILY FOR1 EAC3 PO
[2021-06-18] MEDS ORDERED: AZITHROMYCIN250 MG PO (19:24)
[2021-06-18 19:31] VITALS: BP 138/64
== END 2021-06-18 19:31 | disposition home or self-care (01) ==
LOC: FSED 17:14
DX: R07.89 Other chest pain (principal); J02.9 Acute pharyngitis, unspecified; C21.8 Malignant neoplasm of overlapping sites of rectum, anus and anal canal; R94.31 Abnormal electrocardiogram [ECG] [EKG]
CPT/HCPCS: 80053; 81003; 82553; 84484; 85025; 93005; 99283

== ENCOUNTER 2021-09-13 21:27 | Emergency (ER) | payer OTHER ==
[~2021-09-13] VITALS: Ht 162.6 cm; Wt 66.7 kg
[~2021-09-13 21:27] MED LIST changes: +AZITHROMYCIN250 MG PO
[2021-09-13 21:50] LABS: INR 1.01; PROTHROMBIN TIME 14.2 seconds (11.9-14.5)
[2021-09-13 21:51] LABS: PARTIAL THROMBOPLASTIN TIME 24.3 seconds (23.8-35.5)
[2021-09-13 21:55] LABS: BASOPHILS % 0.6 % (0.0-1.0); EOSINOPHILS # (AUTO) 0.5 (0.0-0.4); EOSINOPHILS % 9.7 % (0.0-6.0); HEMATOCRIT 33.9 % (34.2-44.1); HEMOGLOBIN 11.2 g/dL (12.0-16.0); LYMPHOCYTES # (AUTO) 0.7 (1.0-3.2); LYMPHOCYTES % 14.9 % (18.0-39.1); MEAN CORPUSCULAR HEMOGLOBIN 31.6 pg (28-32); MEAN CORPUSCULAR VOLUME 95.8 fL (81-99); MONOCYTES # (AUTO) 0.6 (0.2-0.8); MONOCYTES % 12.8 % (4.4-11.3); NEUTROPHILS % 61.8 % (38.7-80.0); PLATELET COUNT 226 x10e3/uL (140-360); RED BLOOD COUNT 3.54 x10e6/uL (3.6-5.1); RED CELL DISTRIBUTION WIDTH 12.7 % (11.7-14.4)
[2021-09-13] MEDS ORDERED: ONDANSETRON HCL INJ 2MG/ML 2ML 2 MG/ML VIAL IV STA (21:55)
[2021-09-13 21:59] LABS: ALBUMIN 3.2 g/dL (3.5-5.0); ALBUMIN/GLOBULIN RATIO 0.7 (0.8-2.0); ANION GAP 14.1 mmol/L (8-16); CALCIUM 9.8 mg/dL (8.4-10.2); CREATININE, SERUM 0.78 mg/dL (0.57-1.11); POTASSIUM 4.1 mmol/L (3.5-5.1)
[2021-09-13] MEDS ORDERED: Morphine 4mg Syringe 4 MG/ML INJ IV ONE (22:00)
[2021-09-13] MEDS ORDERED: SODIUM CHLORIDE 0.9% 1000ML 1,000 ML IV SCH (22:00)
[2021-09-13] MEDS ORDERED: IOPAMIDOL 370 MG/ML 200 ML INFUS..BTL INJ ONE (22:16)
[2021-09-13] MEDS ORDERED: SODIUM CHLORIDE 0.9% 100 ML ONE (22:16)
[2021-09-13 23:58] VITALS: BP 133/56
== END 2021-09-14 | disposition home or self-care (01) ==
LOC: ER 21:59
DX: K62.5 Hemorrhage of anus and rectum (principal); K62.89 Other specified diseases of anus and rectum; Z85.048 Personal history of other malignant neoplasm of rectum, rectosigmoid junction, and anus
CPT/HCPCS: 36415; 74174; 80053; 85025; 85610; 85730; 86850; 86900; 99284; J2270; J2405; J7030; J7050; Q9967; U0002

== ENCOUNTER 2021-10-27 10:15 | Emergency (ER) | payer OTHER ==
[~2021-10-27] VITALS: Ht 162.6 cm; Wt 66.7 kg
[2021-10-27] MEDS ORDERED: KETOROLAC TROMETHAMINE 30 MG/ML VIAL IV STA (10:33)
[2021-10-27 10:37] LABS: BASOPHILS % 0.7 % (0.0-1.0); EOSINOPHILS # (AUTO) 0.5 (0.0-0.4); EOSINOPHILS % 9.4 % (0.0-6.0); HEMOGLOBIN 10.3 g/dL (12.0-16.0); LYMPHOCYTES # (AUTO) 0.6 (1.0-3.2); LYMPHOCYTES % 10.3 % (18.0-39.1); MEAN CORPUSCULAR HEMOGLOBIN 31.9 pg (28-32); MEAN CORPUSCULAR HGB CONC 32.2 g/dL (31-35); MEAN CORPUSCULAR VOLUME 99.1 fL (81-99); MONOCYTES # (AUTO) 0.6 (0.2-0.8); NEUTROPHILS # (AUTO) 3.8 (2.1-6.9); NEUTROPHILS % 68.1 % (38.7-80.0); PLATELET COUNT 237 x10e3/uL (140-360); RED BLOOD COUNT 3.23 x10e6/uL (3.6-5.1); RED CELL DISTRIBUTION WIDTH 12.9 % (11.7-14.4)
[2021-10-27 10:59] LABS: ALBUMIN/GLOBULIN RATIO 0.6 (0.8-2.0); ANION GAP 9.1 mmol/L (8-16); CALCIUM 9.1 mg/dL (8.4-10.2); CREATININE, SERUM 0.79 mg/dL (0.57-1.11); POTASSIUM 4.1 mmol/L (3.5-5.1)
[2021-10-27 11:16] LABS: CLARITY,URINE CLEAR (CLEAR); COLOR,URINE YELLOW (YELLOW); LEUKOCYTE ESTERASE ,URINE TRACE (NEGATIVE); NITRITE,URINE POSITIVE (NEGATIVE); PROTEIN,URINE DIPSTICK 2+ (NEGATIVE)
[2021-10-27 11:17] LABS: KETONES,URINE NEGATIVE (NEGATIVE); URINE UROBILINOGEN 0.2 mg/dL (0.2 - 1)
[2021-10-27] MEDS ORDERED: IOPAMIDOL 370 MG/ML 100 ML INFUS..BTL INJ ONE (11:49)
[2021-10-27 11:56] LABS: BACTERIA,URINE MODERATE /HPF; EPITHELIAL CELLS,URINE FEW /LPF; RBC,URINE 0-5 /HPF (0-5); WBC,URINE (MAN) 21-50 /HPF (0-5)
[2021-10-27 11:57] LABS: TRANSITIONAL EPI CELLS,URINE FEW
== END 2021-10-27 13:42 | disposition home or self-care (01) ==
LOC: ER 10:30
DX: N39.0 Urinary tract infection, site not specified (principal); Z85.048 Personal history of other malignant neoplasm of rectum, rectosigmoid junction, and anus; Z88.8 Allergy status to other drugs, medicaments and biological substances; Z79.899 Other long term (current) drug therapy; Z90.49 Acquired absence of other specified parts of digestive tract; Z90.710 Acquired absence of both cervix and uterus; Z90.89 Acquired absence of other organs; Z91.81 History of falling; Z87.19 Personal history of other diseases of the digestive system
CPT/HCPCS: 36415; 71045; 74177; 80053; 81001; 85025; 87086; 99284; J1885; Q9967

== ENCOUNTER 2021-12-22 18:08 | Emergency (ER) | payer OTHER ==
[~2021-12-22] VITALS: Ht 162.6 cm; Wt 66.7 kg
[2021-12-22 18:37] LABS: BASOPHILS % 0.3 % (0.0-1.0); EOSINOPHILS # (AUTO) 0.5 (0.0-0.4); EOSINOPHILS % 5.5 % (0.0-6.0); HEMATOCRIT 29.8 % (34.2-44.1); HEMOGLOBIN 9.5 g/dL (12.0-16.0); LYMPHOCYTES # (AUTO) 0.9 (1.0-3.2); LYMPHOCYTES % 9.6 % (18.0-39.1); MEAN CORPUSCULAR HEMOGLOBIN 30.8 pg (28-32); MEAN CORPUSCULAR HGB CONC 31.9 g/dL (31-35); MEAN CORPUSCULAR VOLUME 96.8 fL (81-99); MONOCYTES # (AUTO) 1.1 (0.2-0.8); MONOCYTES % 12.3 % (4.4-11.3); NEUTROPHILS # (AUTO) 6.6 (2.1-6.9); NEUTROPHILS % 71.8 % (38.7-80.0); PLATELET COUNT 235 x10e3/uL (140-360); RED BLOOD COUNT 3.08 x10e6/uL (3.6-5.1); RED CELL DISTRIBUTION WIDTH 13.5 % (11.7-14.4)
[2021-12-22 18:55] LABS: ALANINE AMINOTRANSFERASE 24 IU/L (0-55); ALBUMIN 2.7 g/dL (3.5-5.0); ALBUMIN/GLOBULIN RATIO 0.6 (0.8-2.0); ALKALINE PHOSPHATASE 40 IU/L (40-150); ANION GAP 15.4 mmol/L (8-16); BLOOD UREA NITROGEN 18 mg/dL (7-26); BUN/CREATININE RATIO 19 (6-25); CALCIUM 9.3 mg/dL (8.4-10.2); CARBON DIOXIDE 21 mmol/L (22-29); CHLORIDE 102 mmol/L (98-107); CREATINE KINASE 30 IU/L (29-168); CREATININE, SERUM 0.97 mg/dL (0.57-1.11); GLUCOSE 114 mg/dL (74-118); POTASSIUM 4.4 mmol/L (3.5-5.1); SODIUM 134 mmol/L (136-145)
[2021-12-22] MEDS ORDERED: IOPAMIDOL 370 MG/ML 100 ML INFUS..BTL INJ ONE (19:34)
[2021-12-22 20:02] LABS: CLARITY,URINE SL CLOUDY (CLEAR); COLOR,URINE YELLOW (YELLOW); KETONES,URINE NEGATIVE (NEGATIVE); LEUKOCYTE ESTERASE ,URINE MODERATE (NEGATIVE); NITRITE,URINE NEGATIVE (NEGATIVE); PROTEIN,URINE DIPSTICK NEGATIVE (NEGATIVE); URINE UROBILINOGEN 0.2 mg/dL (0.2 - 1)
[2021-12-22 20:20] LABS: BACTERIA,URINE MODERATE /HPF; EPITHELIAL CELLS,URINE FEW /LPF
[2021-12-22] MEDS ORDERED: SODIUM CHLORIDE 0.9% 1000ML 1,000 ML IV ONE (20:45)
[2021-12-22] MEDS ORDERED: DIPHENOXYLATE/ATROPINE TAB PO ONE (20:45)
== END 2021-12-22 22:06 | disposition home or self-care (01) ==
LOC: ER 18:15
DX: R19.7 Diarrhea, unspecified (principal); E86.0 Dehydration; K21.9 Gastro-esophageal reflux disease without esophagitis; R94.31 Abnormal electrocardiogram [ECG] [EKG]; Z85.048 Personal history of other malignant neoplasm of rectum, rectosigmoid junction, and anus; Z79.899 Other long term (current) drug therapy
CPT/HCPCS: 36415; 71045; 71260; 80053; 81001; 82550; 82553; 84484; 85025; 85379; 99284; J7030; Q9967

== ENCOUNTER 2022-07-23 11:35 | Emergency (ER) | payer OTHER ==
[~2022-07-23] VITALS: Ht 162.6 cm; Wt 66.7 kg
[2022-07-23 14:26] VITALS: BP 108/56
== END 2022-07-23 14:31 | disposition home or self-care (01) ==
LOC: ER 11:44
DX: S00.83XA Contusion of other part of head, initial encounter (principal); S30.0XXA Contusion of lower back and pelvis, initial encounter; R51.9 Headache, unspecified; W01.0XXA Fall on same level from slipping, tripping and stumbling without subsequent striking against object, initial encounter; Y93.01 Activity, walking, marching and hiking; Y92.89 Other specified places as the place of occurrence of the external cause; K21.9 Gastro-esophageal reflux disease without esophagitis; Z85.048 Personal history of other malignant neoplasm of rectum, rectosigmoid junction, and anus
CPT/HCPCS: 70450; 72131; 99283